=== PATIENT | female | born 1970 | race Caucasian/White ===

== ENCOUNTER 2022-12-02 08:55 | Emergency (ER) | payer MEDICAID, SELFPAY ==
[2022-12-02 08:57] VITALS: BP 149/81; PULSE 90; RESP 16; TEMP 36.1; O2SAT 99; BMI 33.7
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
== END 2022-12-02 09:38 | disposition home or self-care (01) ==
LOC: ED 09:37
PROVIDERS: Emergency Provider Emergency Medicine; Visit Provider Emergency Medicine
DX: M25.512 Pain in left shoulder (principal)
CPT/HCPCS: 99282

== ENCOUNTER 2024-03-06 19:39 | Emergency (ER) | payer MEDICAID, SELFPAY ==
[2024-03-06 19:42] VITALS: BP 184/75; PULSE 89; RESP 18; TEMP 36.6; O2SAT 98; BMI 33.2
--- NOTE | 2024-03-06 19:45 | RAD_ITS ---
EXAM: XR LEFT HAND COMPLETE, 3 OR MORE VIEWS CLINICAL INDICATION: Injury- Thumb TECHNIQUE: Frontal, lateral and oblique views of the left hand. COMPARISON: No relevant prior studies available. FINDINGS: BONES/JOINTS: Sclerotic focus overlying the fourth middle phalanx. No acute fracture. No subluxation. Normal alignment. Preservation of the joint space. SOFT TISSUES: Unremarkable. No soft tissue swelling or gas. No radiopaque foreign body. RAD/Hand Min 3 Views IMPRESSION: No acute findings in the left hand. Electronically Signed: Koko Snyder MD at 20:12 EDT ,
--- OUTSIDE RECORDS SUMMARY | 2024-03-06 23:02 | XMS RPT_ITS | CCD ---
Author Organization [facility] Care Team Providers Care Flexible Machining System Machinist Name Role Phone Priyanka Watkins Primary Care Provider [phone] Ashok MILLER - NIESHA, Efraín Cerda Primary Care Provider Jerry Chirinos MD Primary Care Provider Priyanka Watkins MD Primary Care Provider Taran COOPER, Jerry Ortega Primary Care Provider Ashok ENGINE TESTER - STUCCO APPLICATOREfraín S Primary Care Provider Jerry Chirinos MD Primary Care Provider Ashok ENGINE TESTER - STUCCO APPLICATOREfraín S Primary Care Provider Ashok ENGINE TESTER - STUCCO APPLICATOR, Efraín S Primary Care Provider KIP AGRAWAL Admitting Unavailable KIP AGRAWAL Attending Unavailable ASHOK EFRAÍN Primary Care Unavailable EFRAÍN PULIDO Attending Unavailable GLENDA CHIRINOSRELL Primary Care Unavailable EFRAÍN PULIDO Attending Unavailable TARAN, JERRY Primary Care Unavailable EFRAÍN PULIDO Attending Unavailable ASHOK, EFRAÍN Referring Unavailable ASHOK, EFRAÍN Primary Care Unavailable EFRAÍN PULIDO Attending Unavailable EDVIN PULIDOY Referring Unavailable ASHOK, EFRAÍN Primary Care Unavailable SUDHAKAR INFANTE Attending Unavailable EFRAÍN PULIDO Referring Unavailable TARAN, JERRY Primary Care Unavailable ORIN GAONA Attending Unavailable JERRY CHIRINOS Primary Care Unavailable Allergies Allergy Classification Reported Allergen(s) Allergy Type Date of Onset Reaction(s) Facility (20 sources) Penicillins Propensity to adverse reactions to drug 01-22-2021 [facility] Medications Current Medications Medication Drug Class(es) Dates Sig (Normalized) Sig (Original) ARIPiprazole 2 mg oral tablet (2 sources) Atypical Antipsychotic Start: 05-15-2021 take 1 tablet by mouth once daily in the morning ARIPiprazole (ABILIFY) 2 MG tablet Indications: Current mild episode of major depressive disorder without prior episode (HCC) TAKE 1 TABLET BY MOUTH EVERY MORNING 30 tablet 2 05/15/2021 Active Start: 03-20-2021 take 1 tablet by lashay th once daily in the morning ARIPiprazole (ABILIFY) 2 MG tablet Indications: Current mild episode of major depressive disorder without prior episode (HCC) TAKE ONE TABLET BY MOUTH EVERY DAY IN THE MORNING 30 tablet 1 03/20/2021 Active benzonatate 200 mg oral capsule (1 source) Non-narcotic Antitussive Start: 04-04-2021 End: 04-11-2021 take 1 capsule by mouth three times daily as needed for cough benzonatate (TESSALON) 200 MG capsule Take 1 capsule by mouth 3 times daily as needed for Cough 21 capsule 0 04/04/2021 04/11/2021 Active brompheniramine maleate 0.4 mg/ml / dextromethorphan hydrobromide 2 mg/ml / pseudoephedrine hydrochloride 6 mg/ml oral solution (2 sources) alpha-Adrenergic Agonist, Uncompetitive Z-jbknxy-Z-aspar chakraborty Receptor Antagonist, Sigma-1 Agonist Start: 07-07-2023 End: 07-17-2023 take 5 mL by mouth three times daily as needed brompheniramine-ps eudoephedrine-DM 30-2-10 MG/5ML syrup Indications: Acute cough Take 5 mL by mouth 3 times daily as needed for allergies for up to 10 days. 120 mL 0 07/07/2023 07/17/2023 Active cyclobenzaprine hydrochloride 10 mg oral tablet (1 source) Muscle Relaxant Start: 04-27-2019 End: 05-07-2019 take 1 tablet by mouth three times daily as needed for muscle spasms cyclobenzaprine (FLEXERIL) 10 MG tablet Take 1 tablet by mouth 3 times daily as needed for Muscle spasms 10 tablet 0 04/27/2019 05/07/2019 Active doxycycline hyclate 100 mg oral capsule (2 sources) Tetracycline-cla ss Drug Start: 07-07-2023 End: 07-14-2023 doxycycline (Vibramycin) 100 MG capsule Indications: Acute non-recurrent frontal sinusitis Take 1 capsule (100 mg) by mouth 2 times daily for 7 days. Take with at least 8 ounces (large glass) of water, do not lie down for 30 minutes after 14 capsule 0 07/07/2023 07/14/2023 Active Elastic Bandages & Supports (WRIST SPLINT/COCK-UP/RIGH T M) [facility] (3 sources) Start: 11-02-2017 Elastic Bandages & Supports (WRIST SPLINT/COCK-UP/RIG HT M) [facility] Indications: Carpal tunnel syndrome of right wrist 1 Units by Does not apply route daily 1 each 0 11/02/2017 Active famotidine 20 mg oral tablet (12 sources) Histamine-2 Receptor Antagonist take 1 tablet by mouth every twenty-four hours as needed for gastroesophageal reflux disease famotidine (Pepcid) 20 MG tablet Take 20 mg by mouth Daily as needed for heartburn. 0 Active FLUoxetine 60 mg oral tablet (3 sources) Serotonin Reuptake Inhibitor Start: 05-06-2021 take 1 tablet by mouth once daily FLUoxetine HCl 60 MG TABS Indications: Current moderate episode of major depressive disorder without prior episode (HCC) , Anxiety take 1 tablet by mouth daily 30 tablet 2 05/06/2021 Active Start: 02-04-2021 take 1 tablet by lashay th once daily FLUoxetine HCl 60 MG TABS Indications: Current moderate episode of major depressive disorder without prior episode (HCC) , Anxiety take 1 tablet by mouth daily 30 tablet 2 02/04/2021 Active Start: 11-05-2020 take 1 tablet by lashay th once daily FLUoxetine HCl 60 MG TABS Indications: Current moderate episode of major depressive disorder without prior episode (HCC) , Anxiety take 1 tablet by mouth daily 30 tablet 2 11/05/2020 Active ibuprofen 600 mg oral tablet (4 sources) Nonsteroidal Anti-inflammatory Drug Start: 04-27-2019 take 1 tablet by mouth every six hours as needed for pain ibuprofen (ADVIL;MOTRIN) 600 MG tablet Take 1 tablet by mouth every 6 hours as needed for Pain 20 tablet 0 04/27/2019 Active Start: 07-15-2017 End: 04-27-2019 take 1 tablet by mouth every six hours as needed for pain ibuprofen (ADVIL;MOTRIN) 400 MG tablet Take 1 tablet by mouth every 6 hours as needed for Pain 120 tablet 0 07/15/2017 04/27/2019 Discontinued (DUPLICATE) ipratropium bromide 0.042 mg/actuat metered dose nasal spray (4 sources) Anticholinergic Start: 07-07-2023 End: 07-14-2023 take 2 spray(s) nasal route three times daily ipratropium (Atrovent) 0.06 % nasal spray Indications: Acute non-recurrent frontal sinusitis Administer 2 sprays into each nostril 3 times daily for 7 days. 15 mL 0 07/07/2023 Active naproxen 500 mg oral tablet (1 source) Nonsteroidal Anti-inflammatory Drug Start: 10-23-2020 take 1 tablet by mouth twice daily at mealtime naproxen (NAPROSYN) 500 MG tablet Indications: Trigeminal neuralgia of left side of face Take 1 tablet by mouth 2 times daily (with meals) for 14 days 28 tablet 0 10/23/2020 Active omeprazole 20 mg delayed release oral capsule (20 sources) Proton Pump Inhibitor Start: 03-13-2023 take 1 capsule by mouth once daily omeprazole (PriLOSEC) [address] capsule Indications: Gastroesophageal reflux disease, unspecified whether esophagitis present Take 1 capsule (20 mg) by mouth daily. Do not crush or chew. 30 capsule 2 03/13/2023 Active phentermine hydrochloride 37.5 mg oral tablet (1 source) Sympathomimetic Amine Anorectic Start: 05-20-2021 End: 06-19-2021 take 31-31.9 tablets by mouth once daily before breakfast phentermine (ADIPEX-P) 37.5 MG tablet Indications: Class 1 obesity due to excess calories without serious comorbidity with body mass index (BMI) of 31.0 to 31.9 in adult Take 1 tablet by mouth every morning (before breakfast) for 30 days. 30 tablet 0 05/20/2021 06/19/2021 Active rosuvastatin calcium 10 mg oral tablet (2 sources) HMG-CoA Reductase Inhibitor Start: 05-20-2021 take 1 tablet by mouth once daily rosuvastatin (CRESTOR) 10 MG tablet Indications: Hyperlipidemia, unspecified hyperlipidemia type Take 1 tablet by mouth daily 30 tablet 0 05/20/2021 Active Start: 03-20-2021 take 1 tablet by lashay th once daily rosuvastatin (CRESTOR) 5 MG tablet Indications: Hyperlipidemia, unspecified hyperlipidemia type Take 1 tablet by mouth daily 30 tablet 0 03/20/2021 Active sodium chloride flush 0.9 % injection 3 mL (2 sources) Start: 07-16-2019 sodium chlorid e flush 0.9 % injection 3 mL Start: 01-26-2019 sodium chlorid e flush 0.9 % injection 3 mL Tirzepatide (Mounjaro) 2.5 MG/0.5ML solution pen-injector (16 sources) Start: 04-20-2023 Tirzepatide (M ounjaro) 2.5 MG/0.5ML solution pen-injector Indications: Class 2 obesity due to excess calories without serious comorbidity with body mass index (BMI) of 35.0 to 35.9 in adult Inject 2.5 mg under the skin 1 (one) time per week. 2 mL 0 04/20/2023 Active Completed/Discontinued Medications Medication Drug Class(es) Dates Sig (Normalized) Sig (Original) acetaminophen 500 mg oral tablet (3 sources) Start: 12-24-2020 End: 12-24-2020 acetaminophen (TYLENOL) tablet 1,000 mg Start: 07-16-2019 End: 07-16-2019 acetaminophen (TYLENOL) tabl et 1,000 mg Start: 01-26-2019 End: 01-26-2019 acetaminophen (TYLENOL) tabl et 650 mg [id number] 200 actuat albuterol 0.09 mg/actuat metered dose inhaler (1 source) beta2-Adrenergic Agonist Start: 04-04-2021 End: 04-04-2021 albuterol sulfate HFA 108 (90 Base) MCG/ACT inhaler 6 puff cephalexin 500 mg oral capsule (2 sources) Cephalosporin Antibacterial Start: 06-02-2021 End: 06-09-2021 cephALEXin (KEFLEX) capsule 500 mg 1 ml dexamethasone phosphate 10 mg/ml injection (1 source) Corticosteroid Start: 04-04-2021 End: 04-04-2021 dexamethasone (PF) (DECADRON) injection 10 mg 1 ml diphenhydrAMINE hydrochloride 50 mg/ml cartridge (1 source) Histamine-1 Receptor Antagonist Start: 07-16-2019 End: 07-16-2019 diphenhydrAMINE (BENADRYL) injection 25 mg EPINEPHrine 0.01 mg/ml / lidocaine hydrochloride 10 mg/ml injectable solution (1 source) Antiarrhythmic, alpha-Adrenergic Agonist, beta-Adrenergic Agonist, Catecholamine, Amide Local Anesthetic Start: 06-02-2021 End: 06-02-2021 lidocaine-EPINEPHrine 1 %-1:[id number] injection 20 mL 1 ml ketorolac tromethamine 30 mg/ml cartridge (5 sources) Nonsteroidal Anti-inflammatory Drug, Cyclooxygenase Inhibitor Start: 04-04-2021 End: 04-04-2021 ketorolac (TORADOL) injection 30 mg Start: 07-16-2019 End: 07-16-2019 ketorolac (TORADOL) 30 MG/ML injection Start: 01-26-2019 End: 01-26-2020 take 1 tablet by mouth every six hours as needed for pain ketorolac (TORADOL) 10 MG tablet Take 1 tablet by mouth every 6 hours as needed for Pain 20 tablet 0 01/26/2019 04/27/2019 Discontinued (DUPLICATE) Start: 01-26-2019 ketorolac (TOR ADOL) injection 30 mg 2 ml ondansetron 2 mg/ml injection (1 source) Serotonin-3 Receptor Antagonist Start: 07-16-2019 End: 07-16-2019 ondansetron (ZOFRAN) injection 4 mg 1 ml promethazine hydrochloride 25 mg/ml injection (2 sources) Phenothiazine Start: 07-16-2019 End: 07-16-2019 promethazine (PHENERGAN) injection 12.5 mg Start: 07-16-2019 End: 07-23-2019 take 1 tablet by mouth every six hours as needed for nausea promethazine (PHENERGAN) 25 MG tablet Take 1 tablet by mouth every 6 hours as needed for Nausea 12 tablet 0 07/16/2019 07/23/2019 Active 5 ml sodium chloride 9 mg/ml injection (8 sources) Start: 08-04-2023 End: 08-04-2023 sodium chloride 0.9 % infusi on Start: 08-04-2023 End: 08-04-2023 sodium chloride 0.9% (NS) fl ush 10 mL Start: 04-04-2021 End: 04-04-2021 0.9 % sodium chloride bolus Start: 07-16-2019 End: 07-16-2019 0.9 % sodium chloride bolus Problems Active Problems Problem Classification Problem Date Documented Da te Episodic/Chronic Abdominal pain (14 sources) Generalized abdominal pain; Translations: [Generalized abdominal pain] Onset: 4 03-13-2023 Episodic Acute bronchitis (1 source) Acute bronchitis; Translations: [Acute bronchitis, unspecified organism] Episodic Anxiety disorders (20 sources) Anxiety; Translations: [Anxiety disorder, unspecified] Onset: 0 12-02-2019 Chronic Disorders of lipid metabolism (20 sources) Hyperlipidemia; Translations: [Hyperlipidemia, unspecified] Onset: 1 01-02-2021 Chronic Esophageal disorders (9 sources) Gastroesophageal reflux disease; Translations: [Gastro-esophageal reflux disease without esophagitis] Onset: 4 03-13-2023 Chronic Headache; including migraine (1 source) Headache; Translations: [Acute nonintractable headache, unspecified headache type] Episodic Miscellaneous mental health disorders (1 source) Suicidal behavior; Translations: [Other symptoms and signs involving emotional state] Episodic Mood disorders (20 sources) Moderate major depression, single episode; Translations: [Major depressive disorder, single episode, moderate] Onset: 0 12-02-2019 Chronic Nausea and vomiting (11 sources) Nausea; Translations: [Nausea] Onset: 4 03-13-2023 Episodic Other and unspecified benign neoplasm (4 sources) Adenomyomatosis of gallbladder; Translations: [Benign neoplasm of extrahepatic bile ducts] 04-20-2023 Episodic Other and unspecified benign neoplasm (3 sources) Benign neoplasm of extrahepatic bile ducts; Translations: [Benign neoplasm of extrahepatic bile ducts] Onset: 4 08-04-2023 Episodic Other and unspecified benign neoplasm (1 source) Benign neoplasm of extrahepatic bile ducts; Translations: [Benign neoplasm of extrahepatic bile ducts] Onset: 4 Episodic Other gastrointestinal disorders (10 sources) Abdominal bloating; Translations: [Abdominal distension (gaseous)] 03-13-2023 Episodic Other gastrointestinal disorders (3 sources) Abdominal distension, gaseous; Translations: [Abdominal distension (gaseous)] Onset: 4 08-04-2023 Episodic Other gastrointestinal disorders (1 source) Abdominal distension (gaseous); Translations: [Abdominal distension (gaseous)] Onset: 4 Episodic Other liver diseases (6 sources) Steatosis of liver; Translations: [Fatty (change of) liver, not elsewhere classified] 04-20-2023 Chronic Other liver diseases (2 sources) Fatty (change of) liver, not elsewhere classified; Translations: [Fatty (change of) liver, not elsewhere classified] Onset: 4 Chronic Other lower respiratory disease (9 sources) Cough; Translations: [Acute cough] Onset: 4 07-07-2023 Episodic Other nervous system disorders (20 sources) Carpal tunnel syndrome of right wrist; Translations: [Carpal tunnel syndrome, right upper limb] Onset: 8 12-24-2017 Chronic Other nervous system disorders (2 sources) Carpal tunnel syndrome of right wrist; Translations: [Carpal tunnel syndrome of right wrist] Onset: 8 12-24-2017 Other nutritional; endocrine; and metabolic disorders (3 sources) Obesity; Translations: [Other obesity due to excess calories] Onset: 0 10-19-2020 Chronic Other nutritional; endocrine; and metabolic disorders (20 sources) Obesity caused by energy imbalance; Translations: [Other obesity due to excess calories] Onset: 1 03-13-2023 Chronic Other nutritional; endocrine; and metabolic disorders (2 sources) Other obesity due to excess calories; Translations: [Other obesity due to excess calories] Onset: 3 Chronic Other nutritional; endocrine; and metabolic disorders (2 sources) Body mass index (BMI) 35.0-35.9, adult; Translations: [Body mass index (BMI) 35.0-35.9, adult] Onset: 3 Chronic Other nutritional; endocrine; and metabolic disorders (2 sources) Body mass index (BMI) 34.0-34.9, adult; Translations: [Body mass index (BMI) 34.0-34.9, adult] Onset: 3 Chronic Other nutritional; endocrine; and metabolic disorders (4 sources) Weight gain; Translations: [Abnormal weight gain] 03-13-2023 Episodic Suicide and intentional self-inflicted injury (1 source) Suicidal thoughts; Translations: [Suicidal ideations] Episodic Unclassified (1 source) Acute cough; Translations: [Acute cough] Onset: 4 Viral infection (1 source) COVID-19; Translations: [Pneumonia due to other virus not elsewhere classified] Episodic Past or Other Problems Problem Classification Problem Date Documented Da te Episodic/Chronic Disorders of teeth and jaw (2 sources) Dental abscess; Translations: [Periapical abscess without sinus] Onset: 01-22-2021 Resolved: 03-20-2021 03-20-2021 Episodic Mood disorders (20 sources) Mood disorders Onset: 03-13-2023 03-13-2023 Nonmalignant breast conditions (20 sources) Fat necrosis of breast; Translations: [Fat necrosis of breast] Onset: 10-29-2015 10-29-2015 Episodic Nonspecific chest pain (8 sources) Chest pain; Translations: [Chest wall pain] Onset: 07-14-2017 Resolved: 12-02-2019 07-14-2017 Episodic Other bone disease and musculoskeletal deformities (6 sources) Costal chondritis; Translations: [Chondrocostal junction syndrome [Tietze]] Onset: 07-15-2017 Resolved: 12-02-2019 07-15-2017 Episodic Other non-traumatic joint disorders (20 sources) Pain in left shoulder; Translations: [Pain in joint, shoulder region] Onset: 03-13-2023 03-13-2023 Episodic Other nutritional; endocrine; and metabolic disorders (2 sources) Abnormal weight gain; Translations: [Abnormal weight gain] Onset: 03-13-2023 Episodic Other screening for suspected conditions (not mental disorders or infectious disease) (6 sources) Patient encounter status; Translations: [Encounter for screening mammogram for malignant neoplasm of breast] Onset: 03-13-2023 03-13-2023 Episodic Other upper respiratory infections (20 sources) Viral upper respiratory tract infection; Translations: [Acute upper respiratory infection, unspecified] Onset: 05-27-2022 Resolved: 07-25-2022 07-25-2022 Episodic Otitis media and related conditions (20 sources) Acute suppurative otitis media without spontaneous rupture of ear drum; Translations: [Acute suppurative otitis media without spontaneous rupture of ear drum, left ear] Onset: 05-27-2022 05-27-2022 Episodic Residual codes; unclassified (20 sources) Tobacco user; Translations: [Tobacco use] Onset: 12-28-2019 12-28-2019 Episodic Skin and subcutaneous tissue infections (20 sources) Abscess of axilla; Translations: [Cutaneous abscess of limb, unspecified] Onset: 03-27-2022 Episodic Spondylosis; intervertebral disc disorders; other back problems (1 source) Acute low back pain Episodic Unclassified (1 source) Acute cough; Translations: [Acute cough] Onset: 07-07-2023 Results Test Name Value Interpretation Reference Range Facility 36on 10-13-2023 36 We have been unable to reach your patient to schedule their testing. Test Name: ct abd pel w contrast 1st Attempt: 10/05/23 sent mySchoolNotebook message 2nd Attempt: 10/13/2023 left voicemail Normal [facility] DBT Breast - bilateral scree shira 10-02-2023 No mammographic evidence of malignancy. ASSESSMENT: Category 2 Benign RECOMMENDATION: Routine screening mammogram in 1 year. Bilateral CANCER RISK ASSESSMENT: This risk assessment is based on patient provided information collected in a risk survey taken at the time of this examination. LIFETIME BREAST CANCER RISK: Rylan: 11.86% - If greater than or equal to 20%, consider annual mammogram and annual screening Breast MRI or follow up in high risk clinic. Is the patient at elevated risk based on the HBOC criteria? No (Hereditary Breast and Ovarian Cancer) - If Yes, consider genetic counseling and testing with high risk follow up. Is the patient at elevated risk based on the Osborne Syndrome criteria? No - If Yes, consider genetic counseling and testing with high risk follow up. Report Dictated on Electronically Signed By: Amena Trevino MD Electronically Signed Date/Time: 10/02/2023 12:16 PM [facility] Patient Name: SAVI CAN : 1970 Exam Date/Time: 10/02/2023 11:26 Procedure: BI MAMMOGRAM SCREENING TOMOSYNTHESIS BILATERAL Ordering Provider: PULIDO HOLLY Reason For Exam: routine screening Image views: 2D Bilateral CC and MLO views were acquired. 3D Bilateral CC and MLO views were acquired. Images were reviewed with CAD. Markings on images: BB's = Nipples; skin lesions Open comanche = Palpable Line = Scar COMPARISON: 07/20/2018 TISSUE DENSITY: BIRADS B - There are scattered fibroglandular densities. FINDINGS: No suspicious masses, architectural distortions or suspiciously clustered microcalcifications are identified. There is no evidence of skin thickening or nipple retraction. There is a biopsy clip in the left breast. There are no significant changes when compared with prior studies. [facility] Amena Trevino MD - 10/02/2023 [facility] 1970 [id number] Exam Date/Time: 10/02/2023 11:26 Procedure: BI MAMMOGRAM SCREENING TOMOSYNTHESIS BILATERAL Ordering Provider: PULIDO HOLLY Reason For Exam: routine screening Image views: 2D Bilateral CC and MLO views were acquired. 3D Bilateral CC and MLO views were acquired. Images were reviewed with CAD. Markings on images: BB's = Nipples; skin lesions Open comanche = Palpable Line = Scar COMPARISON: 07/20/2018 TISSUE DENSITY: BIRADS B - There are scattered fibroglandular densities. FINDINGS: No suspicious masses, architectural distortions or suspiciously clustered microcalcifications are identified. There is no evidence of skin thickening or nipple retraction. There is a biopsy clip in the left breast. There are no significant changes when compared with prior studies. IMPRESSION: No mammographic evidence of malignancy. ASSESSMENT: Category 2 Benign RECOMMENDATION: Routine screening mammogram in 1 year. Bilateral CANCER RISK ASSESSMENT: This risk assessment is based on patient provided information collected in a risk survey taken at the time of this examination. LIFETIME BREAST CANCER RISK: Tyrer-Cuzick: 11.86% - If greater than or equal to 20%, consider annual mammogram and annual screening Breast MRI or follow up in high risk clinic. Is the patient at elevated risk based on the HBOC criteria? No (Hereditary Breast and Ovarian Cancer) - If Yes, consider genetic counseling and testing with high risk follow up. Is the patient at elevated risk based on the Osborne Syndrome criteria? No - If Yes, consider genetic counseling and testing with high risk follow up. Report Dictated on Electronically Signed By: Amena Trevino MD Electronically Signed Date/Time: 10/02/2023 12:16 PM EDT [facility] Radiology Study observation (narrative) [facility] DBT Breast - bilateral scree ningOrdered By: Amena Trevino on 10-02-2023 [facility] 36on 10-01-2023 36 Called patient, no answer. Left voicemail to call us back if would like to be scheduled for follow up to go over results. Patient established with Sudhakar. [facility] 36on 08-17-2023 36 Please assist with scheduling. VV appropriate.Thanks. [facility] 36 Name of caller: Savi Contact phone number: [phone] Relationship to Patient: patient Provider: Dr. Agrawal Practice: [facility] Chief Complaint/Reason for Call: Pt states she had a EGD on 08/03 and would like to schedule a follow up appointment to discuss the results. Pt states she would like to be seen sooner than later. Please advise. Best time of day caller can be reached: any Patient advised that office/PCP has 24-48 business hours to return their call: Yes [facility] Nursing Noteon 08-04-[address] Argawal at bedside to give pt update. Sister at bedside. Questions answered. [facility] Nursing Note Ambulates to restroo after discharge instructions discussed. She is provided with scrub pants and items for christel care-her pants are wet. Gait is steady. Denies complaints. States she is ready to go home. [facility] Nursing Note Received pt from gi lab sleeping on room air. Belongings retrieved from locker. No visitor in lobby-Dr Agrawal is made aware. History and allergies reviewed. [facility] 36on 07-07-2023 36 S: Patient spoke wit h [facility] nurse regarding cough B: Onset of symptoms/concern 1-2 weeks A: Patient complaining of severe cough with intermittent vomiting, sore throat, moderate left earache, nasal discharge, chest congestion chest pain only with cough. Denies difficulty breathing, fever, wheezing. No COVID test. R: OV scheduled for today with Gareth Gaona. Patient understands care advice. No further needs at this time. Patient instructed to call back with new or worsening symptoms. Reason for Disposition SEVERE coughing spells (e.g., whooping sound after coughing, vomiting after coughing) Protocols used: [id number] [facility] Office Visiton 07-07-2023 Follow-up visit [id number] Savi Vasquez 1970 F Date Provider Department Center 07/07/2023 [id number] GAONA [facility] [facility] Family History Problem Relation Age of Onset Heart disease Father Other Father Comments: Blood Clots Heart disease Brother Lung cancer Brother Breast cancer Father's Sister Comments: Early 40s Lung cancer Maternal Grandfather Colon cancer Maternal Grandfather Family Status - Relation Status Age at Mother Alive Father Brother Father's Sister Maternal Grandfather Level of Service:85223 [place] OFFICE/OUTPATIENT ESTABLISHED LOW [facility] 20 MIN Reason for Visit and Comments: Cough [28] Nasal Congestion [144225] Sore Throat [82] Earache [524686] - left [facility] Progress Noteon 07-07-2023 Progress Note Will treat with antibiotics for bacterial sinusitis due to severity of symptoms and length of illness >7 days, not improving. [facility] Progress Note Patient was identifi ed by name and Date of . [facility] Progress Note 07/07/2023 Savi Vasquez (: 1970) is a 53 y.o. female , Established patient, here for evaluation of the following chief complaint(s): Cough, Nasal Congestion, Sore Throat, and Earache (left) ASSESSMENT/PLAN: 1. Acute non-recurrent frontal sinusitis Assessment & Plan: Will treat with antibiotics for bacterial sinusitis due to severity of symptoms and length of illness >7 days, not improving. Orders: - doxycycline (Vibramycin) 100 MG capsule; Take 1 capsule (100 mg) by mouth 2 times daily for 7 days. Take with at least 8 ounces (large glass) of water, do not lie down for 30 minutes after, Starting Thu07/07/2023, Until Thu07/14/2023, Normal - ipratropium (Atrovent) 0.06 % nasal spray; Administer 2 sprays into each nostril 3 times daily for 7 days., Starting Thu07/07/2023, Until Thu07/14/2023, Normal 2. Acute cough - brompheniramine-pseudoe phedrine-DM 30-2-10 MG/5ML syrup; Take 5 mL by mouth 3 times daily as needed for allergies for up to 10 days., Starting Thu07/07/2023, Until Thu07/17/2023 at 2359, Normal Reviewed and provided written patient education/instructions regarding diagnosis and management. Reviewed symptom management with non-pharmacological interventions and appropriate use of otc medications for relief of symptoms. Follow up for worsening or no improvement in symptoms. Follow up if symptoms worsen or fail to improve. SUBJECTIVE/OBJECTIVE: [facility] - Savi Vasquez (: 1970) is a 53 y.o. female , Established patient, here for the evaluation of the following chief complaint(s): Cough, Nasal Congestion, Sore Throat, and Earache (left) X 2 weeks worsening, lots of drainage. Sinus pressure, headache. No fever or chills, low grade today. Feels hotter at bedtime. Left ear bothering her. No drainage. Feels full. Robitussin, sudafed and dayquil. Mild nausea and vomiting. Did initially have n/v/d. That has resolved. Mild nausea. Appetite decreased. Prior to Admission medications Medication Sig Start Date End Date Taking? Authorizing Provider famotidine (Pepcid) 20 MG tablet Take 20 mg by mouth Daily as needed for heartburn. Historical Provider, omeprazole (PriLOSEC) [address] capsule Take 1 capsule (20 mg) by mouth daily. Do not crush or chew. Patient not taking: Reported on 06/11/2023 03/13/23 PAUL Ruiz CNP Tirzepatide (Mounjaro) 2.5 MG/0.5ML solution pen-injector Inject 2.5 mg under the skin 1 (one) time per week. Patient not taking: Reported on 06/11/2023 04/20/23 PAUL Ruiz CNP Review of Systems Constitutional: Negative for chills, fatigue and fever. HENT: Positive for congestion, postnasal drip, sinus pressure and sinus pain. Negative for sore throat and trouble swallowing. Respiratory: Positive for cough. Negative for shortness of breath. Cardiovascular: Negative for chest pain. Gastrointestinal: Negative. Neurological: Positive for headaches. Vitals: 07/07/23 1256 BP: 137/83 Pulse: 87 Resp: 20 Temp: 37.8 ?C (100 ?F) TempSrc: Infrared SpO2: 97% Weight: 215 lb (97.5 kg) Physical Exam Constitutional: General: She is not in acute distress. Appearance: Normal appearance. She is ill-appearing (mild). HENT: Head: Normocephalic and atraumatic. Right Ear: Tympanic membrane normal. Left Ear: Tympanic membrane normal. Nose: Congestion and rhinorrhea present. Right Turbinates: Swollen. Left Turbinates: Swollen. Mouth/Throat: Mouth: Mucous membranes are moist. Pharynx: Oropharynx is clear. No oropharyngeal exudate or posterior oropharyngeal erythema. Eyes: Conjunctiva/sclera: Conjunctivae normal. Cardiovascular: Rate and Rhythm: Normal rate and regular rhythm. Pulses: Normal pulses. Heart sounds: Normal heart sounds. Pulmonary: Effort: Pulmonary effort is normal. Breath sounds: Normal breath sounds. Comments: Speaking full sentences without difficulty Lymphadenopathy: Cervical: No cervical adenopathy. Skin: General: Skin is warm and dry. Neurological: Mental Status: She is alert and oriented to person, place, and time. Psychiatric: Mood and Affect: Mood normal. Behavior: Behavior normal. An electronic signature was used to authenticate this note. PAUL Beltre CNP 07/07/2023 1:21 PM [place] [address] 06-24-2023 36 Re-faxed office note s and US report. [place] [address] 06-23-2023 36 I faxed the office notes over to them! [place] [address] We denied your docto r?s request for a Pelvis CT (Computed Tomography - pictures of inside your body between your hips). It must be medically needed in order to be approved. The request did not include any clinical notes from your doctor. We asked for notes about the problem; the most recent office visit notes; any test results or image studies that show a need for more studies; and any treatments for the problem. We did not get an answer. Without these notes, we are not able to approve this request. We used [employer] Clinical Guideline [address] to decide this. Please talk to your doctor about this request. [place] 1960706-12-2023 36 Current Status: Pend ing Validity Period: [Not Applicable] Tracking Number: [id number] Patient Name: SAVI VASQUEZ Date of : 1970 Gender: Female Physician Name: Sudhakar Infante Provider ID: [id number] [facility] Office Visiton 06-11-2023 Follow-up visit [id number] Savi Vasquez 1970 F Date Provider Department Center 06/11/2023 [id number] INFANTE [facility] [place] None Family History Problem Relation Age of Onset Heart disease Father Other Father Comments: Blood Clots Heart disease Brother Lung cancer Brother Breast cancer Father's Sister Comments: Early 40s Lung cancer Maternal Grandfather Colon cancer Maternal Grandfather Family Status - Relation Status Age at Mother Alive Father Brother Father's Sister Maternal Grandfather Level of Service:09578 [place] OFFICE/OUTPATIENT NEW MODERATE MDM 45 MINUTES Reason for Visit and Comments: New Patient [542] Abdominal Pain [695239] GERD [282482] Nausea [70] Normal [facility] PATINSon 06-11-2023 PATINS --Please call office with any questions or concerns! [phone] --Schedule EGD (upper endoscopy) for further evaluation of the symptoms.. Patient scheduled with Dr. Agrawal in [place] on 08/04/23 at 11:30am. Case # [id number] --Schedule radiology test (CT Abdomen/Pelvis) for further evaluation of the symptoms. --recommend mediterranean diet for fatty liver --referral placed to general surgery regarding adenomyomatosis of gallbladder seen on ultrasound --Please see handout provided regarding additional recommendations for the symptoms including when to seek emergency care or further treatment. --Follow-up with PCP, and in GI clinic in about 4-6 weeks following the above evaluation and recommendations. Normal [facility] Progress Noteon 06-11-2023 Progress Note [facility] [address] [facility] [address] Dept: [phone] Dept Loc: [phone] Visit type: New Reason for Visit: New Patient, Abdominal Pain, GERD, and Nausea Assessment and Plan Problem List Items Addressed This Visit None Visit Diagnoses Generalized abdominal pain Relevant Orders CT abdomen pelvis w contrast Abdominal bloating Relevant Orders CT abdomen pelvis w contrast Nausea Relevant Orders CT abdomen pelvis w contrast Gastroesophageal reflux disease, unspecified whether esophagitis present Relevant Orders CT abdomen pelvis w contrast Fatty liver Adenomyomatosis of gallbladder Relevant Orders [facility] General Surgery - Magali Christopher MD GERD/Abdominal bloating/Abdominal pain/Nausea --?GI 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 --schedule EGD for further evaluation --prior CT denied by insurance; will attempt to re-order at this time since US was completed in interim --continue famotidine as needed (patient prefers to take as needed) --diet EDU printed Fatty liver --seen on abdominal US 04/16/2023 --BMI 35 --02/2023-normal LFTs --patient avoids EtOH-continue --reviewed diet/lifestyle modifications recommended for fatty liver, EDU printed --discussed with patient potential progression of fatty liver to cirrhosis Adenomyomatosis of GB --referral placed to surgery Advised patient to call office with new or worsening symptoms, questions, or concerns. Patient verbalized understanding and agreement of plan. Follow up in about 6 weeks (around 07/23/2023). Subjective HPI Patient is referred by Efraín Pulido APRN-NIESHA, re: generalized abdominal pain, abdominal bloating, nausesa, GERD, fatty liver, and adenomyomatosis of gallbladder. Patient reports unintentional weight-gain of 40# over the past 5 months. States she is eating one meal per day-trying to focus on high protein-but continuing to rapidly gain weight. Weight gain is very disconcerting to patient. February 2023 normal TSH, T3, T4. Current weight at today's visit 218#, weight at ov with PCP 06/09/2022 197#. [place] on med list-patient states she never took this, med was denied by insurance. She completed abdominal US 04/16/2023 which showed adenomyomatosis of GB wall and fatty liver. LFTS normal . She c/o increased gassiness and regurgitation. She is using famotidine 20 mg prn, which helps some. Prefers not to take medication. Has significant abdominal bloating following meals. States this does not matter how much she eats or what she eats-bloating is severe. Has to lie down for relief. Bowels are moving daily. Having intermittent days of abdominal cramping that precedes bowel movements. Will have solid stool followed by several episodes of loose stool on these days. Denies hematochezia and melena. No prior EGD. Last colonoscopy 2019. Smokes 1 pack per week-trying to cut back. No cardiac hx. Denies anticoagulants or supplemental oxygen use. Review of Systems Constitutional: Positive for unexpected weight change (gain). Negative for appetite change. HENT: Negative for trouble swallowing and voice change. Respiratory: Negative for shortness of breath. Cardiovascular: Negative for chest pain. Gastrointestinal: Positive for abdominal distention, abdominal pain and nausea. Negative for anal bleeding, blood in stool, constipation, diarrhea, rectal pain and vomiting. +regurgitation Genitourinary: Negative for difficulty urinating. Musculoskeletal: Negative for neck pain. Skin: Negative for color change. Patient notes itching to breasts, underarms Neurological: Negative for weakness. Allergies Allergen Reactions Penicillins Outpatient Medications Prior to Visit Medication Sig Dispense Refill famotidine (Pepcid) 20 MG tablet Take 20 mg by mouth Daily as needed for heartburn. omeprazole (PriLOSEC) [address] capsule Take 1 capsule (20 mg) by mouth daily. Do not crush or chew. (Patient not taking: Reported on 06/11/2023) 30 capsule 2 Tirzepatide (Mounjaro) 2.5 MG/0.5ML solution pen-injector Inject 2.5 mg under the skin 1 (one) time per week. (Patient not taking: Reported on 06/11/2023) 2 mL 0 No facility-administered medications prior to visit. Patient Active Problem List Diagnosis Date Noted Pain of left shoulder region 03/13/2023 Priority: Medium Non-recurrent acute suppurative otitis media of left ear without spontaneous rupture of tympanic membrane 05/27/2022 Priority: Medium Impetigo 03/27/2022 Priority: Medium Hyperlipidemia 01/02/2021 Class 2 obesity due to excess calories without serious comorbidity with body mass index (BMI) of 35.0 to 35.9 in adult 10/19/2020 History of hysterectomy 12/28/2019 Tobacco abuse 12/28/2019 Anxiety 12/02/2019 Major depressive disorder with single episode, in remission (HCC) 12/02/2019 Carpal tunnel sy (more content not included)... [place] [address] 04-27-2023 36 Name of Caller: Lauren Contact Reason for Appointment: Pt referred for generalized abdominal pain & would like to schedule new pt appt. Please advise. Office Name: [facility] Medication Refills need, if any: n/a Medication Name: n/a [place] [address]on 04-22-2023 36 Notified pt. [place] [address] A PA was submitted t o her insurance and the medication was denied. I am not familiar with the new medication and as of now this is not something I am prescribing. [address] 04-21-2023 36 Message released to patient as written. Patient's further questions if applicable: pt is wanting to know if PA will be resummited for Monjaro and to see about a medication called Zepbound that is coming out 04/24/2023 please advise Were all questions from office addressed or relayed to the patient from encounter: no [place] [address] PA was denied, insurance will not cover mounjaro, Left a message to return call to notify Savi. [address] 04-20-2023 36 PA has already been submitted. [place] [address] Name of caller: Savi Contact phone number: [phone] Relationship to Patient: pt Provider: Dr Chirinos Practice: [facility] Chief Complaint/Reason for Call: Caller is noting that pharmacy did call and said they needed a PA for Monjaro Please advise Best time of day caller can be reached: any Patient advised that office/PCP has 24-48 business hours to return their call: No [place] [address] Efraín Pulido, PAUL - NIESHA 1 hour ago (1:01 PM) [facility] Rx sent for Mounjaro. Will see if this is approved by her insurance or not. If she does start taking this will need a follow up appointment in 4 weeks from start date. Can cancel appointment on 05/01/23. Left a message to return call. Cancelled appt on 05/01/23, schedule appt in 4 weeks please. Normal [facility] 36 Rx sent for Mounjaro . Will see if this is approved by her insurance or not. If she does start taking this will need a follow up appointment in 4 weeks from start date. Can cancel appointment on 05/01/23. Normal [facility] 36 Spoke to gregory Hou he still wants to try mounjaro. Also asks if the appointment on the can be cancelled? Normal [facility] 36 ----- Message from PAUL Ruiz CNP sent at 04/20/2023 7:23 AM EST ----- Abdominal ultrasound negative for acute findings. There are findings consistent with some thickening of the gallbladder wall but negative for gallstones. Findings of fatty liver are also present. Would recommend following up with GI for further evaluation. Normal [facility] US ABDOMEN COMPLETEon 2022 US ABDOMEN COMPLETE Patient Name: SAVI CAN : 1970 Exam Date/Time: 04/16/2023 14:20 Procedure: US ABDOMEN COMPLETE Ordering Provider: PULIDO HOLLY Reason For Exam: abdominal pain and bloating with nausea CLINICAL INFORMATION: Abdominal pain Sonogram of the abdomen is performed. The liver is hyperechoic in echotexture. No hyper or hypo echoic masses are seen. There is no intrahepatic biliary ductal dilatation. The gallbladder is normally distended with changes of adenomyomatosis gallbladder wall. There are no gallstones, internal echoes, or pericholecystic fluid collections. The common bile duct diameter of 3.9 mm is within normal limits. No obvious pancreatic mass or peripancreatic fluid collection is identified (the pancreas is largely obscured by bowel gas). Cursory examination of the kidneys is performed. The right renal length is 11.8 cm. The left renal length is 11.8 cm. There is no hydronephrosis. There is no ascites. The spleen is unremarkable The visualized portions of the aorta and inferior vena cava are within normal limits. IMPRESSION: 1. Unremarkable ultrasound of the abdomen except for changes of adenomyomatosis gallbladder wall and fatty infiltration liver. Report Dictated on Electronically Signed By: Lee Hsieh MD Electronically Signed Date/Time: 04/18/2023 7:43 PM EST [facility] Office Visiton 04-13-2023 Follow-up visit [id number] Savi Vasquez 1970 F Date Provider Department Center 04/13/2023 [id number] PULIDO [facility] Family History Problem Relation Age of Onset Heart disease Father Other Father Comments: Blood Clots Heart disease Brother Lung cancer Brother Breast cancer Father's Sister Comments: Early 40s Lung cancer Maternal Grandfather Family Status - Relation Status Age at Mother Alive Father Brother Father's Sister Maternal Grandfather Level of Service:69610 [place] OFFICE/OUTPATIENT ESTABLISHED [facility] 10-19 MIN Reason for Visit and Comments: Weight Gain [180] - About 20lbs in the last few months Asking to start Mounjaro [facility] Progress Noteon 04-13-2023 Progress Note Patient verified by last name and date of . Waist 50 [facility] Progress Note 04/13/2023 Savi Vasquez (: 1970) is a 53 y.o. female , Established patient, here for evaluation of the following chief complaint(s): Weight Gain (About 20lbs in the last few months //Asking to start Mounjaro) ASSESSMENT/PLAN: 1. Generalized abdominal pain - Will call and schedule her abdominal ultrasound for further evaluation. 2. Abdominal bloating - Will call and schedule her abdominal ultrasound for further evaluation. 3. Weight gain - Recommend workup with abdominal ultrasound prior to starting medication for weight loss. If abdominal ultrasound is without abnormal findings or findings that would contraindicate Mounjaro, will send in prescription and see if this is covered by her insurance. - Encouraged continuation of a healthy diet. Encouraged regular exercise. 4. Class 2 obesity due to excess calories without serious comorbidity with body mass index (BMI) of 35.0 to 35.9 in adult - Recommend workup with abdominal ultrasound prior to starting medication for weight loss. If abdominal ultrasound is without abnormal findings or findings that would contraindicate Mounjaro, will send in prescription and see if this is covered by her insurance. - Encouraged continuation of a healthy diet. Encouraged regular exercise. Follow up for follow up after ultrasound. SUBJECTIVE/OBJECTIVE: HPI Jaycob Hou presents today to discuss concerns regarding her weight. States she has gained about 20 pounds over the past several months and is interested in starting a medication for weight loss. States she has been eating a healthy diet low in carbohydrates and sugar, but despite making healthy changes she continues to gain weight. Walks some, but denies regular exercise. Has ongoing issues with generalized abdominal pain and abdominal bloating. Had a CT ordered for her abdomen and this was denied by her insurance. Had an order placed for an abdominal ultrasound instead and still needs to get this scheduled. Had blood work drawn on 03/13/23 that showed normal CBC, CMP, TSH, T3, T4, and lipid panel. Review of Systems Constitutional: Negative for chills and fever. Respiratory: Negative for chest tightness and shortness of breath. Cardiovascular: Negative for chest pain and leg swelling. Gastrointestinal: Positive for abdominal distention and abdominal pain (generalized). Negative for blood in stool, constipation, diarrhea, nausea and vomiting. Vitals: 04/13/23 1107 04/13/23 1123 BP: (!) 164/93 136/80 Pulse: 101 SpO2: 97% Weight: 217 lb 6.4 oz (98.6 kg) Height: 5' 6 (1.676 m) Body mass index is 35.09 kg/m?. Physical Exam Constitutional: General: She is not in acute distress. Appearance: She is obese. She is not ill-appearing or diaphoretic. Cardiovascular: Rate and Rhythm: Normal rate and regular rhythm. Pulses: Normal pulses. Heart sounds: Normal heart sounds. No murmur heard. No friction rub. Pulmonary: Effort: Pulmonary effort is normal. Breath sounds: Normal breath sounds. No wheezing, rhonchi or rales. Abdominal: General: Abdomen is protuberant. Bowel sounds are normal. Palpations: Abdomen is soft. There is no hepatomegaly, splenomegaly or mass. Tenderness: There is abdominal tenderness (generalized). There is no guarding or rebound. Comments: Protuberant abdomen impairing examination. Musculoskeletal: Right lower leg: No edema. Left lower leg: No edema. Skin: General: Skin is warm and dry. Coloration: Skin is not pale. Findings: No erythema or rash. Neurological: Mental Status: She is alert and oriented to person, place, and time. Psychiatric: Mood and Affect: Mood normal. Behavior: Behavior normal. Thought Content: Thought content normal. Judgment: Judgment normal. An electronic signature was used to authenticate this note. PAUL Ruiz CNP 04/13/2023 11:28 AM [facility] 36on 03-30-2023 36 Notified. [facility] 36 Order placed. Thank you. Can call central scheduling to schedule. [phone]. [facility] 36 Pt agreeable to US. [facility] 36on 03-25-2023 36 Called patient, VM B ox full unable to LVM, sent mySchoolNotebook message. [facility] [address] Insurance [address] coverage for CT of abdomen. Recommending an abdominal ultrasound instead. Will place order if agreeable. [facility] 36on 03-24-2023 36 Pt's ins is asking f or the following to proceed with CT-Abd/Pelvis: Preliminary Clinical Rationale A preliminary review has been performed that is NOT a final determination. Requests for further information and a peer to peer discussion are being sent to the ordering physician. However, if no further information is received within the regulatory time frame, this determination will become final. Reason for Denial: Your doctor?s request for a(n) Abdomen and Pelvis CT (Computed Tomography - pictures of inside your belly area) cannot be approved. We made this decision based on [facility] [employer]er Guideline A-0013 for Abdominal/Pelvic CT Scan. Information Relied Upon: Based on what was given, you have belly pain, your doctor?s request cannot be approved. A person might need a(n) Abdomen and Pelvis CT if these notes have/has been given: results of other tests that were done first (such as x-rays with or without dye (barium) or sound wave (ultrasound)). Results of those tests should show why this test is still needed. The information we got did not include these notes. [facility] Office Visiton 03-13-2023 Follow-up visit [id number] Savi Vasquez 1970 F Date Provider Department Center 03/13/2023 [id number] PULIDO [facility] Family History Problem Relation Age of Onset Heart disease Father Other Father Comments: Blood Clots Breast cancer Father's Sister Comments: Early 40s Heart disease Brother Lung cancer Maternal Grandfather Lung cancer Brother Family Status - Relation Status Age at Father Father's Sister Brother Maternal Grandfather Level of Service:44394 [place] OFFICE/OUTPATIENT ESTABLISHED MOD MDM 30-39 MIN Reason for Visit and Comments: Discuss Weight [Other] Health Maintenance [872] - Hep B-declined HIV/Hep C-declined Covid-declined MMR-declined Pneumo-declined [id number] Mammo-- pended Zoster-declined PHQ-completed Influenza-declined Normal [facility] Progress Noteon 03-13-2023 Progress Note Patient was identifi ed by name and Date of . Health Main: Hep B-declined HIV/Hep C-declined Covid-declined MMR-declined Pneumo-declined [id number] Mammo-pended Zoster-declined PHQ-completed Influenza-declined Normal [facility] Progress Note 03/13/2023 Savi Vasquez (: 1970) is a 52 y.o. female , Established patient, here for evaluation of the following chief complaint(s): Discuss Weight and Health Maintenance (Hep B-declined/HIV/Hep C-declined/Covid-declin ed/MMR-declined/Pneumo- declined/[id number]/M ammo-pended /Zoster-declined/PHQ-co mpleted/Influenza-decli viridiana) ASSESSMENT/PLAN: 1. Generalized abdominal pain - CBC auto differential - Comprehensive metabolic panel - CT abdomen pelvis wo IV contrast - Will start on daily Omeprazole and obtain blood work and imaging for further evaluation. - Discussed signs and symptoms warranting immediate attention- verbalized understanding. 2. Abdominal bloating - CBC auto differential - Comprehensive metabolic panel - CT abdomen pelvis wo IV contrast - Will start on daily Omeprazole and obtain blood work and imaging for further evaluation. - Discussed signs and symptoms warranting immediate attention- verbalized understanding. 3. Nausea - CBC auto differential - Comprehensive metabolic panel - T3, free - T4, free - TSH - CT abdomen pelvis wo IV contrast - Will start on daily Omeprazole and obtain blood work and imaging for further evaluation. - Discussed signs and symptoms warranting immediate attention- verbalized understanding. 4. Gastroesophageal reflux disease, unspecified whether esophagitis present - CBC auto differential - Comprehensive metabolic panel - CT abdomen pelvis wo IV contrast - omeprazole (PriLOSEC) [address] capsule; Take 1 capsule (20 mg) by mouth daily. Do not crush or chew., Starting 03/13/2023, Normal - Will start on daily Omeprazole and obtain blood work and imaging for further evaluation. - Discussed signs and symptoms warranting immediate attention- verbalized understanding. 5. Weight gain - CBC auto differential - Comprehensive metabolic panel - T3, free - T4, free - TSH - CT abdomen pelvis wo IV contrast - Will start on daily Omeprazole and obtain blood work and imaging for further evaluation. - Discussed signs and symptoms warranting immediate attention- verbalized understanding. 6. Class 1 obesity due to excess calories without serious comorbidity with body mass index (BMI) of 34.0 to 34.9 in adult - CBC auto differential - Comprehensive metabolic panel - T3, free - T4, free - TSH - Encouraged healthy diet and regular exercise. 7. Hyperlipidemia, unspecified hyperlipidemia type - CBC auto differential - Comprehensive metabolic panel - Lipid panel - Will notify of blood work results and provide recommendations accordingly. 8. Screening mammogram for breast cancer - Bilateral screening mammogram 9. Screening for diabetes mellitus - Comprehensive metabolic panel - Will notify of blood work results. Follow up for annual physical and fasting blood work. SUBJECTIVE/OBJECTIVE: ZOHREH Hou presents today to discuss concerns regarding her weight. States she has been watching her weight for the past 10 weeks and has been striving for a healthy diet and continues to gain weight. Denies regular exercise. Does drink regular soda. Is also feeling more bloated and will notice stomach pains. Has also been experiencing daily reflux. Feels reflux is poorly controlled no matter what she eats.Is having regular bowel movements and denies signs of blood in the stool. Is also requesting to have fasting blood work. Has not been taking anything for her hyperlipidemia. Health Maintenance: Declines a flu vaccination. Review of Systems Constitutional: Negative for chills and fever. Respiratory: Negative for cough, chest tightness and shortness of breath. Cardiovascular: Negative for chest pain. Gastrointestinal: Negative for abdominal distention and abdominal pain. Skin: Negative for color change, pallor, rash and wound. Neurological: Negative for dizziness and light-headedness. Vitals: 03/13/23 0726 BP: 132/81 Pulse: 94 Resp: 20 Temp: 36.3 ?C (97.3 ?F) TempSrc: Infrared SpO2: 98% Weight: 213 lb (96.6 kg) Body mass index is 34.38 kg/m?. Physical Exam Constitutional: General: She is not in acute distress. Appearance: She is obese. She is not ill-appearing or diaphoretic. Neck: Thyroid: No thyroid mass or thyromegaly. Vascular: No carotid bruit. Cardiovascular: Rate and Rhythm: Normal rate and regular rhythm. Heart sounds: Normal heart sounds. No murmur heard. No friction rub. Pulmonary: Effort: Pulmonary effort is normal. Breath sounds: Normal breath sounds. No wheezing, rhonchi or rales. Chest: Comments: Declines a breast exam. Abdominal: General: Abdomen is protuberant. Bowel sounds are normal. Palpations: Abdomen is soft. There is no hepatomegaly, splenomegaly or mass. Tenderness: There is generalized abdominal tenderness. There is no guarding or rebound. Negative signs include Montalvo's sign. Hernia: No hernia is present. Musculoskeletal: (more content not included)... Normal [facility] ED Provider Noteon 2 ED Provider Note [facility] ED EMERGENCY DEPARTMENT ENCOUNTER Pt Name: Savi Vasquez Birthdate 1970 Date of evaluation: 06/02/2021 Provider: Orville Trotter, DO CHIEF COMPLAINT Chief Complaint Patient presents with ? Abscess right axillary HISTORY OF PRESENT ILLNESS (Location/Symptom, Timing/Onset, Context/Setting, Quality, Duration, Modifying Factors, Severity) Note limiting factors. I wore a mask for the entirety of this encounter. Savi Vasquez is a 51 y.o. female who presents to the emergency department with right armpit pain. States she has had what she thinks is an abscess to this area over the past week. Has been using Neosporin and warm compresses. States that it has opened up and is now spontaneously draining small amount of purulent fluid. States it is moderately tender to palpation. States she gets some nausea when she does the warm compresses. Denies any fevers, chills. Has never had an abscess in this area before. Nursing Notes were reviewed. REVIEW OF SYSTEMS (2+ for level 4; 10+ for level 5) 14 systems reviewed and otherwise acutely negative except as in the [place]. PAST MEDICAL HISTORY Past Medical History: Diagnosis Date ? Abscessed tooth 01/22/2021 ? Anxiety 12/02/2019 ? Carpal tunnel syndrome of right wrist 12/24/2017 ? Class 1 obesity due to excess calories without serious comorbidity with body mass index (BMI) of 32.0 to 32.9 in adult 01/25/2020 ? Current moderate episode of major depressive disorder without prior episode (HCC) 12/02/2019 ? Headache ? Hyperlipidemia 01/02/2021 ? Smoker ? UTI (urinary tract infection) H/O SURGICAL HISTORY Past Surgical History: Procedure Laterality Date ? HYSTERECTOMY, VAGINAL 2007 bilateral ovaries remaining ? TUBAL LIGATION 1998 CURRENT MEDICATIONS Previous Medications ARIPIPRAZOLE (ABILIFY) 2 MG TABLET TAKE 1 TABLET BY MOUTH EVERY MORNING FLUOXETINE HCL 60 MG TABS take 1 tablet by mouth daily PHENTERMINE (ADIPEX-P) 37.5 MG TABLET Take 1 tablet by mouth every morning (before breakfast) for 30 days. ROSUVASTATIN (CRESTOR) 10 MG TABLET Take 1 tablet by mouth daily ALLERGIES Penicillins FAMILY HISTORY Family History Problem Relation Age of Onset ? Heart Disease Father ? Other Father Blood Clots ? Heart Disease Brother ? Lung Cancer Brother ? Breast Cancer Paternal Aunt Early 40s ? Lung Cancer Maternal Grandfather SOCIAL HISTORY Social History Socioeconomic History ? Marital status: Single Spouse name: None ? Number of children: None ? Years of education: None ? Highest education level: None Occupational History ? None Tobacco Use ? Smoking status: Current Every Day Smoker Packs/day: 0.50 Years: 20.00 Pack years: 10.00 Types: Cigarettes Start date: 12/01/1999 ? Smokeless tobacco: Never Used ? Tobacco comment: let us know when ready Vaping Use ? Vaping Use: Every day Substance and Sexual Activity ? Alcohol use: No ? Drug use: No Comment: caffeine use 3-4 Soft Drinks Daily ? Sexual activity: None Other Topics Concern ? None Social History Narrative ? None Social Determinants of Health Financial Resource Strain: Low Risk ? Difficulty of Paying Living Expenses: Not very hard Food Insecurity: No Food Insecurity ? Worried About Running Out of Food in the Last Year: Never true ? Ran Out of Food in the Last Year: Never true Transportation Needs: ? Lack of Transportation (Medical): Not on file ? Lack of Transportation (Non-Medical): Not on file Physical Activity: ? Days of Exercise per Week: Not on file ? Minutes of Exercise per Session: Not on file Stress: ? Feeling of Stress : Not on file Social Connections: ? Frequency of Communication with Friends and Family: Not on file ? Frequency of Social Gatherings with Friends and Family: Not on file ? Attends Christianity Services: Not on file ? Active Member of Clubs or Organizations: Not on file ? Attends Club or Organization Meetings: Not on file ? Marital Status: Not on file Intimate Partner Violence: ? Fear of Current or Ex-Partner: Not on file ? Emotionally Abused: Not on file ? Physically Abused: Not on file ? Sexually Abused: Not on file Housing Stability: ? Unable to Pay for Housing in the Last Year: Not on file ? Number of Places Lived in the Last Year: Not on file ? Unstable Housing in the Last Year: Not on file SCREENINGS PHYSICAL EXAM (up to 7 for level 4, 8 or more for level 5) ED Triage Vitals [06/02/21 1228] BP Temp Temp Source Pulse Resp SpO2 Height Weight 135/79 97.8 ?F (36.6 ?C) Temporal 92 16 94 % -- -- CONSTITUTIONAL: AOx4, no apparent distress, appears stated age HEAD: normocephalic, atraumatic EYES: PERRL, EOMI ENT: moist mucous membranes, uvula midline NECK: supple, symmetric BACK: symmetric LUNGS: clear to auscultation bilaterally CARDIOVASCULAR: regular rate and rhythm, no murmurs, rubs or gallops ABDOMEN: soft, non- (more content not included)... Normal [facility] Incision/Drainageon 06-02-19 Orville Trotter DO 06/02/2021 2:03 PM Incision/Drainage Date/Time: 06/02/2021 2:01 PM Performed by: Orville Trotter DO Authorized by: Orville Trotter DO Consent: Consent obtained: Verbal Consent given by: Patient Risks discussed: Bleeding, incomplete drainage and pain Location: Type: Abscess Size: 2 cm x 2 cm Location: Right axilla. Pre-procedure details: Skin preparation: Chloraprep Anesthesia (see MAR for exact dosages): Anesthesia method: Local infiltration Local anesthetic: Lidocaine 1% WITH epi Procedure type: Complexity: Simple Procedure details: Incision types: Stab incision Incision depth: Dermal Scalpel blade: 11 Wound management: Probed and deloculated, irrigated with saline and extensive cleaning Drainage: Purulent Drainage amount: Moderate Wound treatment: Wound left open Packing materials: None Post-procedure details: Patient tolerance of procedure: Tolerated well, no immediate complications [facility] Work Phone: [facility] Work Phone: Basic Metabolic Panelon 03-18 Anion gap [Moles/Vol] 4 mmol/L Normal 3-13 [facility] Comment on above: Performed By: #### T ROPN, LACT3, DDI2, HEMDF, BMP3 #### [facility] [address] [place] [address] Calcium [Mass/Vol] 9.4 mg/dL Normal 8.4-10.4 [facility] Comment on above: Performed By: #### T ROPN, LACT3, DDI2, HEMDF, BMP3 #### [facility] [address] [place] [address] CO2 [Moles/Vol] 26 mmol/L Normal 22-30 [facility] Comment on above: Performed By: #### T ROPN, LACT3, DDI2, HEMDF, BMP3 #### [facility] [address] [place] [address] Glucose [Mass/Vol] 104 mg/dL High 70-100 [facility] Comment on above: Performed By: #### T ROPN, LACT3, DDI2, HEMDF, BMP3 #### [facility] [address] [place] [address] Urea nitrogen [Mass/Vol] 11 mg/dL Normal 9-20 [facility] Comment on above: Performed By: #### T ROPN, LACT3, DDI2, HEMDF, BMP3 #### [facility] [address] [place] [address] Creatinine [Mass/Vol] 0.68 mg/dL Normal 0.52-1.25 [facility] Comment on above: Performed By: #### T ROPN, LACT3, DDI2, HEMDF, BMP3 #### [facility] [address] [place] [address] eGFR OTHER > 90.0 Normal >60 [facility] Comment on above: Result Comment: KDIG O guidelines provide the following GFR categories: Stage GFR(ml/min/1.73 m2) Terms G1 >=90 Normal or high G2 60-89 Mildly decreased* G3a 45-59 Mildly to moderately decreased G3b 30-44 Moderately to severely decreased G4 15-29 Severely decreased G5 <15 Kidney failure *Relative to young adult level. In the absence of evidence of kidney damage, neither GFR category G1 nor G2 fulfill the criteria for CKD. The CKD-EPI equation is validated in individuals 18 years of age and older. Currently the best equation for estimating glomerular filtration rate (GFR) from serum creatinine in children is the Bedside Goff equation. It is less accurate in patients with extremes of muscle mass, restriction of dietary protein, ingestion of creatine, extra-renal metabolism of creatinine, or treatment with medications that affect renal tubular creatinine secretion. Performed By: #### T ROPN, LACT3, DDI2, HEMDF, BMP3 #### [facility] [address] [place] [address] GFR/1.73 sq M.predicted among blacks MDRD (S/P/Bld) [Vol rate/Area] mL/min/{1.73_m2} Normal >60 [facility] Comment on above: Performed By: #### T ROPN, LACT3, DDI2, HEMDF, BMP3 #### [facility] [address] [place] [address] Potassium [Moles/Vol] 4.0 mmol/L Normal 3.5-5.1 [facility] Comment on above: Performed By: #### T ROPN, LACT3, DDI2, HEMDF, BMP3 #### [facility] [address] [place] [address] Sodium [Moles/Vol] 141 mmol/L Normal 135-145 [facility] Comment on above: Performed By: #### T ROPN, LACT3, DDI2, HEMDF, BMP3 #### [facility] [address] [place] [address] Chloride [Moles/Vol] 111 mmol/L High 98-107 [facility] Comment on above: Performed By: #### T ROPN, LACT3, DDI2, HEMDF, BMP3 #### [facility] [address] [place] [address] Anion gap [Moles/Vol] 4 mmol/L 3 - 13 mmol/L [facility] Calcium [Mass/Vol] 9.4 mg/dL 8.4 - 10. 4 mg/dL [facility] Chloride [Moles/Vol] 111 mmol/L High 98 - 10 7 mmol/L [facility] CO2 [Moles/Vol] 26 mmol/L 22 - 30 mmol/L [facility] Creatinine [Mass/Vol] 0.68 mg/dL 0.52 - 1.25 mg/dL [facility] EGFR IF NonAfrican [place]an >90.0 >60 mL/min [facility] Comment on above: KDIGO guidelines pro vide the following GFR categories: Stage GFR(ml/min/1.73 m2) Terms G1 >=90 Normal or high G2 60-89 Mildly decreased* G3a 45-59 Mildly to moderately decreased G3b 30-44 Moderately to severely decreased G4 15-29 Severely decreased G5 <15 Kidney failure *Relative to young adult level. In the absence of evidence of kidney damage, neither GFR category G1 nor G2 fulfill the criteria for CKD. The CKD-EPI equation is validated in individuals 18 years of age and older. Currently the best equation for estimating glomerular filtration rate (GFR) from serum creatinine in children is the Bedside Goff equation. It is less accurate in patients with extremes of muscle mass, restriction of dietary protein, ingestion of creatine, extra-renal metabolism of creatinine, or treatment with medications that affect renal tubular creatinine secretion. GFR/1.73 sq M.predicted among blacks MDRD (S/P/Bld) [Vol rate/Area] mL/min/{1.73_m2} >60 mL/min [facility] Glucose [Mass/Vol] 104 mg/dL High 70 - 100 mg/dL [facility] Interpretation and review of laboratory results Abnormal [facility] Potassium [Moles/Vol] 4.0 mmol/L 3.5 - 5.1 mmol/L [facility] Sodium [Moles/Vol] 141 mmol/L 135 - 145 mmol/L [facility] Urea nitrogen (BldV) [Mass/Vol] 11 mg/dL 9 - 20 mg/dL [facility] CBC WITH AUTO DIFFERENTIALon 04-04-2021 Absolute Baso # 0.0 10*3/uL 0.0 - 0.2 10*3/uL [facility] Absolute Neut # 3.2 10*3/uL 1.8 - 7.0 10*3/uL [facility] Basophils/100 WBC (Bld) 0.4 % 0.0 - 2.0 % [facility] Eosinophils (Bld) [#/Vol] 0.0 10*3/uL 0.0 - 0.5 10*3/uL [facility] Eosinophils/100 WBC (Bld) 0.6 % Low 1.0 - 6.0 % [facility] Granulocytes/100 WBC (Bld) 56.2 % 40.0 - 80.0 % [facility] Hematocrit (Bld) [Volume fraction] 40.2 % 35.0 - 47.0 % [facility] Hemoglobin.gastrointes tinal spec 1 Ql (Stl) 13.6 g/dL 11.7 - 16.0 g/dL [facility] Interpretation and review of laboratory results Abnormal [facility] Lymphocytes (Bld) [#/Vol] 1.9 10*3/uL 1.0 - 4.3 10*3/uL [facility] Lymphocytes/100 WBC (Bld) 33.5 % 20.0 - 40.0 % [facility] MCH (RBC) [Entitic mass] 30.5 pg 26.0 - 34.0 pg [facility] MCHC (RBC) [Mass/Vol] 33.8 % 32.0 - 36.0 % [facility] MCV (RBC) [Entitic vol] 90.2 fL 79.0 - 98.0 fL [facility] Monocytes (Bld) [#/Vol] 0.5 10*3/uL 0.0 - 0.8 10*3/uL [facility] Monocytes/100 WBC (Bld) 9.3 % 2.0 - 10.0 % [facility] Platelet distribution width (Bld) [Ratio] 13.5 % 11.5 - 14.5 % [facility] Platelet mean volume (Bld) [Entitic vol] 7.1 fL Low 7.4 - 10.4 fL [facility] Platelets (Bld) [#/Vol] 237 10*3/uL 140 - 440 10*3/uL [facility] RBC (Bld) [#/Vol] 4.46 10*6/uL 3.80 - 5.2 0 10*6/uL [facility] WBC (Bld) [#/Vol] 5.7 10*3/uL 3.6 - 10.7 10*3/uL [facility] Test Performed by [facility], [address] [facility] COVID-19, Flu A/B, and RSV C omboon 04-04-2021 Influenza A by PCR Not detected [facility] Influenza B by PCR Not detected [facility] Interpretation and review of laboratory results Abnormal [facility] RSV PCR Not Detected. Expected Result: Not Detected _ Method: Real-time, RT-PCR This assay was developed by [employer] and distributed under an Emergency Use Authorization (EUA) granted by the FDA for the qualitative detection of nucleic acids from SARS-CoV-2, Influenza A, Influenza B, and Respiratory Syncytial Virus. Provider and patient fact sheets can be found at https://www.fda.gov/med ia/960780/download and https://www.fda.gov/med ia/730559/download. [facility] SARS-CoV-2 (COVID-19) RNA JOSLYN+probe Ql (Unsp spec) Detected Abnormal [facility] Test Performed by [facility], [address] [place] [address]. , [address] [facility] CR Chest PA/LATon 04-04-2021 CR Chest PA/LAT Patient Name: SAVI CAN Diagnostic Radiology ACCESSION EXAM DATE/TIME PROCEDURE ORDERING PROVIDER [id number] 04/04/2021 13:40 EST CR Chest PA and LAT MD GRAY DOUGALAS R. CPT code 05780 Reason For Exam (CR Chest PA and LAT) covid +. CP. PNA? Report EXAMINATION: CHEST RADIOGRAPH CLINICAL INDICATION: Shortness of breath, chest pain TECHNIQUE: Two views of the chest COMPARISON: 07/16/2019. FINDINGS: Cardiomediastinal silhouette is normal. Diffuse coarsened reticulonodular opacities, which represent multifocal airspace disease versus interstitial edema. No pleural effusion or pneumothorax. No acute osseous abnormality. IMPRESSION: Diffuse coarsened reticulonodular opacities, which may represent multifocal airspace disease versus interstitial edema. Report Dictated on Final Dictating Physician: MD NELSON, AKSHAT NAVARRO Signed Date and Time: 04/04/2021 2:08 pm Signed by: MD NELSON, AKSHAT NAVARRO Transcribed Date and Time: 04/04/2021 2:10 Normal [facility] D-Dimer, Innovanceon 021 D-Dimer, Innovance 0.37 mg/L Normal <0.19-0.50 [facility] Comment on above: Result Comment: Inno hernandez D-Dimer values of <0.50 mg/L FEU can be used in combination with a pre-test probability model (e.g. Well's) to exclude pulmonary embolism (PE) disease, as well as an aid in the diagnosis of deep vein thrombosis (DVT). Performed By: #### T ROPN, LACT3, DDI2, HEMDF, BMP3 #### [facility] [address] [place] [address] D-Dimer, Quantitativeon 03-18 D-Dimer, Quant 0.37 mg/L <0.19 - 0.50 [facility] Comment on above: [employer] D-Dimer va lues of <0.50 mg/L FEU can be used in combination with a pre-test probability model (e.g. Well's) to exclude pulmonary embolism (PE) disease, as well as an aid in the diagnosis of deep vein thrombosis (DVT). Test Performed by [facility], [address] LAB [facility] Hemogram w/ Autodiffon 04-04 Abs Baso Cnt 0.0 10*3/uL Normal 0.0-0.2 [facility] Comment on above: Performed By: #### T ROPN, LACT3, DDI2, HEMDF, BMP3 #### [facility] [address] [place] [address] Abs Neutrophile Cnt 3.2 10*3/uL Normal 1.8-7.0 [facility] Comment on above: Performed By: #### T ROPN, LACT3, DDI2, HEMDF, BMP3 #### [facility] [address] [place] [address] Basophils/100 WBC (Bld) 0.4 % Normal 0.0-2.0 [facility] Comment on above: Performed By: #### T ROPN, LACT3, DDI2, HEMDF, BMP3 #### [facility] [address] [place] [address] Eosinophils (Bld) [#/Vol] 0.0 10*3/uL Normal 0.0-0.5 [facility] Comment on above: Performed By: #### T ROPN, LACT3, DDI2, HEMDF, BMP3 #### [facility] [address] [place] [address] Eosinophils/100 WBC (Bld) 0.6 % Low 1.0-6.0 [facility] Comment on above: Performed By: #### T ROPN, LACT3, DDI2, HEMDF, BMP3 #### [facility] [address] [place] [address] Erythrocyte distribution width (RBC) [Ratio] 13.5 % Normal 11.5-14.5 [facility] Comment on above: Performed By: #### T ROPN, LACT3, DDI2, HEMDF, BMP3 #### [facility] [address] [place] [address] Granulocytes/100 WBC (Bld) 56.2 % Normal 40.0-80.0 [facility] Comment on above: Performed By: #### T ROPN, LACT3, DDI2, HEMDF, BMP3 #### [facility] [address] [place] [address] Hematocrit (Bld) [Volume fraction] 40.2 % Normal 35.0-47.0 [facility] Comment on above: Performed By: #### T ROPN, LACT3, DDI2, HEMDF, BMP3 #### [facility] [address] [place] [address] Hemoglobin (Bld) [Mass/Vol] 13.6 g/dL Normal 11.7-16.0 [facility] Comment on above: Performed By: #### T ROPN, LACT3, DDI2, HEMDF, BMP3 #### [facility] [address] [place] [address] Lymphocytes (Bld) [#/Vol] 1.9 10*3/uL Normal 1.0-4.3 [facility] Comment on above: Performed By: #### T ROPN, LACT3, DDI2, HEMDF, BMP3 #### [facility] [address] [place] [address] Lymphocytes/100 WBC (Bld) 33.5 % Normal 20.0-40.0 [facility] Comment on above: Performed By: #### T ROPN, LACT3, DDI2, HEMDF, BMP3 #### [facility] [address] [place] [address] MCH (RBC) [Entitic mass] 30.5 pg Normal 26.0-34.0 [facility] Comment on above: Performed By: #### T ROPN, LACT3, DDI2, HEMDF, BMP3 #### [facility] [address] [place] [address] MCHC 33.8 % Normal 32.0-36.0 [facility] Comment on above: Performed By: #### T ROPN, LACT3, DDI2, HEMDF, BMP3 #### [facility] [address] [place] [address] MCV (RBC) [Entitic vol] 90.2 fL Normal 79.0-98.0 [facility] Comment on above: Performed By: #### T ROPN, LACT3, DDI2, HEMDF, BMP3 #### [facility] [address] [place] [address] Monocytes (Bld) [#/Vol] 0.5 10*3/uL Normal 0.0-0.8 [facility] Comment on above: Performed By: #### T ROPN, LACT3, DDI2, HEMDF, BMP3 #### [facility] [address] [place] [address] Monocytes/100 WBC (Bld) 9.3 % Normal 2.0-10.0 [facility] Comment on above: Performed By: #### T ROPN, LACT3, DDI2, HEMDF, BMP3 #### [facility] [address] [place] [address] Platelet mean volume (Bld) [Entitic vol] 7.1 fL Low 7.4-10.4 [facility] Comment on above: Performed By: #### T ROPN, LACT3, DDI2, HEMDF, BMP3 #### [facility] [address] [place] [address] Platelets (Bld) [#/Vol] 237 10*3/uL Normal 140-440 [facility] Comment on above: Performed By: #### T ROPN, LACT3, DDI2, HEMDF, BMP3 #### [facility] [address] [place] [address] RBC (Bld) [#/Vol] 4.46 10*6/uL Normal 3.80-5.20 [facility] Comment on above: Performed By: #### T ROPN, LACT3, DDI2, HEMDF, BMP3 #### [facility] [address] [place] [address] WBC (Bld) [#/Vol] 5.7 10*3/uL Normal 3.6-10.7 [facility] Comment on above: Performed By: #### T ROPN, LACT3, DDI2, HEMDF, BMP3 #### [facility] [address] [place] [address] Lactic Acidon 04-04-2021 Lactate [Moles/Vol] 0.9 mmol/L Normal 0.7-2.0 [facility] Comment on above: Performed By: #### T ROPN, LACT3, DDI2, HEMDF, BMP3 #### [facility] [address] [place] [address] Lactic Acid, Plasmaon 2020 Lactate [Moles/Vol] 0.9 mmol/L 0.7 - 2. 0 mmol/L [facility] No Panel Informationon 04-04 Test Performed by [facility], [address] , [place], [place] [id number] [place] [address] LAB [facility] SARS-CoV-2, Flu A/B and RSVo n 04-04-2021 SARS-CoV-2 (COVID-19) RNA JOSLYN+probe Ql (Unsp spec) SARS-CoV-2 --> Status: F DETECTED Flu A PCR --> Status: F Not Detected. Flu B PCR --> Status: F Not Detected. RSV PCR --> Status: F Not Detected. Expected Result: Not Detected _ Method: Real-time, RT-PCR This assay was developed by [employer] and distributed under an Emergency Use Authorization (EUA) granted by the FDA for the qualitative detection of nucleic acids from SARS-CoV-2, Influenza A, Influenza B, and Respiratory Syncytial Virus. Provider and patient fact sheets can be found at https://www.fda.gov/med ia/877272/download and https://www.fda.gov/med ia/707911/download. Expected Result: Not Detected _ Method: Real-time, RT-PCR This assay was developed by [employer] and distributed under an Emergency Use Authorization (EUA) granted by the FDA for the qualitative detection of nucleic acids from SARS-CoV-2, Influenza A, Influenza B, and Respiratory Syncytial Virus. Provider and patient fact sheets can be found at https://www.fda.gov/med ia/893133/download and https://www.fda.gov/med ia/127294/download. Normal [facility] Comment on above: Performed By: #### C VFLR #### [facility] [address] [place] [address] , [address] Troponinon 04-04-2021 Troponin I.cardiac [Mass/Vol] ng/mL 0.000 - 0.034 ng/mL [facility] Comment on above: . Test Performed by [facility], [address] , [place], [place] [address] [facility] Troponin Ion 04-04-2021 Troponin I.cardiac [Mass/Vol] ng/mL Normal 0.000-0.034 [facility] Comment on above: Result Comment: . Performed By: #### T ROPN, LACT3, DDI2, HEMDF, BMP3 #### [facility] [address] [place] [address] XR CHEST (2 VW)on 04-04-2021 Patient Name: SAVI CAN Diagnostic Radiology ACCESSION EXAM DATE/TIME PROCEDURE ORDERING PROVIDER [id number] 04/04/2021 13:40 EST CR Chest PA & LAT MD GRAY DOUGALAS R. CPT code 26630 Reason For Exam (CR Chest PA & LAT) covid +. CP. PNA? Report EXAMINATION: CHEST RADIOGRAPH CLINICAL INDICATION: Shortness of breath, chest pain TECHNIQUE: Two views of the chest COMPARISON: 07/16/2019. FINDINGS: Cardiomediastinal silhouette is normal. Diffuse coarsened reticulonodular opacities, which represent multifocal airspace disease versus interstitial edema. No pleural effusion or pneumothorax. No acute osseous abnormality.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 HEMDF, CK3, CMP3 #### [address] Platelet mean volume (Bld) [Entitic vol] 7.5 fL Normal 7.4-10.4 [facility] Comment on above: Performed By: #### E TOH4, HEMDF, CK3, CMP3 #### [address] Platelets (Bld) [#/Vol] 236 10*3/uL Normal 140-440 [facility] Comment on above: Performed By: #### E TOH4, HEMDF, CK3, CMP3 #### [address] RBC (Bld) [#/Vol] 4.27 10*6/uL Normal 3.80-5.20 [facility] Comment on above: Performed By: #### E TOH4, HEMDF, CK3, CMP3 #### [address] WBC (Bld) [#/Vol] 7.6 10*3/uL Normal 3.6-10.7 [facility] Comment on above: Performed By: #### E TOH4, HEMDF, CK3, CMP3 #### [address] [place] [address] No Panel InformationOrdered By: Samreen Wayne on 12-24-2020 Test Performed by [facility], [address] [place] [address] [facility] Work Phone: [facility] Work Phone: [id number] 12-24-2020 SARS-CoV-2 (COVID-19) RNA JOSLYN+probe Ql (Unsp spec) SARS-CoV-2 --> Status: F Not Detected. Expected Result: Not Detected _ Real-time, RT-PCR performed on the [employer] System by the [facility] Microbiology Service. Negative results do not preclude SARS-CoV-2 infection and should not be used as the sole basis for treatment or other patient management decisions. This assay was developed by [employer] and distributed under an Emergency Use Authorization (EUA) granted by the FDA for the qualitative detection of SARS-CoV-2 nucleic acid. Expected Result: Not Detected _ Real-time, RT-PCR performed on the [employer] System by the [facility] [place] Service. Negative results do not preclude SARS-CoV-2 infection and should not be used as the sole basis for treatment or other patient management decisions. This assay was developed by [employer] and distributed under an Emergency Use Authorization (EUA) granted by the FDA for the qualitative detection of SARS-CoV-2 nucleic acid. Normal [facility] Comment on above: Performed By: #### C OVID #### [facility] [address] [place] [address] UrinalysisOrdered By: Samreen Wayne on 12-24-2020 Appearance (U) Clear Clear NA [facility] Work Phone: Comment on above: . Bacteria, UA Few Abnormal Negative /[HPF] [facility] Work Phone: Comment on above: . Bilirubin Urine Negative Negative mg/dL [facility] Work Phone: Comment on above: . Color (U) Yellow Lt. Yellow NA [facility] Work Phone: Comment on above: . Glucose, Ur Normal Normal (<70) mg/dL [facility] Work Phone: Comment on above: . Interpretation and review of laboratory results Abnormal [facility] Work Phone: Ketones Ql (U) Negative Negative mg/dL [facility] Work Phone: Comment on above: . LEUKOCYTES, UA 75 Abnormal Negative Bartolo/uL [facility] Work Phone: Comment on above: . Mucous Threads Many Abnormal Negative /[LPF] [facility] Work Phone: [phone] Comment on above: . Nitrite, Urine Negative Negative NA [facility] Work Phone: [phone] Comment on above: . Occult Blood,Urine Negative Negative mg/dL [facility] Work Phone: Comment on above: . pH (U) 5.5 [pH] [facility] Work Phone: Comment on above: . Protein (U) [Mass/Vol] 20 mg/dL Abnormal Negative [facility] Work Phone: [phone] Comment on above: . RBC, UA 0-2 0 - 2 /[HPF] [facility] Work Phone: Comment on above: . Specific [place], Urine 1.026 [facility] Work Phone: Comment on above: . Squam Epithel, UA 3-5 3 - 5 /[HPF] [facility] Work Phone: Comment on above: . Urobilinogen, Urine 2 mg/dL Abnormal Normal (0-1) [facility] Work Phone: Comment on above: . WBC, UA 11-25 Abnormal 0 - 5 /[HPF] [facility] Work Phone: Comment on above: . Test Performed by [facility], [address] [place] [address] [facility] Work Phone: [facility] Work Phone: Urine Drug ScreenOrdered By: Samreen Wayne on 12-24-2020 Amphetamines, urine Negative [facility] Work Phone: Barbiturates, Ur Negative [facility] Work Phone: Benzodiazepine Ur Qual Negative [facility] Work Phone: Cocaine Metabolites, Ur Negative [facility] Work Phone: Methadone, Urine Negative [facility] Work Phone: Opiates, Urine Negative [facility] Work Phone: Oxycodone Screen, Ur Negative [facility] Work Phone: PCP, Urine Negative [facility] Work Phone: Comment on above: The expected value f or all of the drugs listed above is Negative. The following drugs or drug groups have been screened for by Immunoassay at the following thresholds: Amphetamine class (1000 ng/mL), Barbiturates (200 ng/mL), Benzodiazepines (200 ng/mL), Cocaine (300 ng/mL), Methadone (300 ng/mL), Opiates (300 ng/mL), Oxycodone (100 ng/mL), and PCP (25 ng/mL). NOTE: These results are for medical treatment only. Analysis performed using non-forensic procedures. POSITIVE results are NOT confirmed by a more specific alternative method unless requested. If confirmation is needed, request confirmation under separate order. Test Performed by [facility], [address] [place] [address] [facility] Work Phone: [facility] Work Phone: HISTORY PHYSICALon 0 HISTORY PHYSICAL HNO ID: [id number] Author: Leonardo Lam Service: ? Author Type: Physician Type: HANDP Filed: 10/13/2019 2:58 PM Note Text: HISTORY AND PHYSICAL Savi Vasquez, 49 year old female Current history and physical on file: No Is a new History and Physical required for today's visit? Yes Indication for procedure: Change in bowel movements PROCEDURE(S) SCHEDULED FOR: Colonoscopy with or without biopsies and with or without removal of polyps or lesions, dilation (any means), treatment of bleeding (any means), based on clinical findings. BASELINE BEHAVIOR: Calm BASELINE ORIENTATION: A AND O x3 All medications and allergies reviewed: Yes Skin Assessment: Warm dry muscus membranes pink Airway/Respiratory Assessment: Airway: visualization of the uvula- Yes Mouth: opening greater than 2 fingerbreadths- Yes Neck: full range of motion- Yes Breath sounds clear/equal- Yes Cardiac Assessment: Regular rate and rhythm without murmur Abdominal Assessment: Abdomen soft, non-tender, no masses or organomegaly. Sedation Plan: MAC Additional Comments: None Leonardo Lam MD [facility] OBSOLETEon 10-13-2019 OBSOLETE Procedure (ASCNOR) SAVI VASQUEZ ([id number]) 1970 F Date Time Provider Department 10/13/19 2:30 PM LEONARDO LAM During your visit today, we recorded the following information about you: Temperature Pulse Respiration Blood pressure 98.6 degrees 84/minute 16/minute 148/99 Weight Height 90.7 kg 1.651 m Annmarie Garcia LPN 10/13/2019 2:29 PM Signed AMBULATORY PATIENT EDUCATION NOTE TOPIC: GI PROCEDURES: colonoscopy READINESS TO LEARN INSTRUCTION PROVIDED TO: Patient, readness to learn accessed prior to procedure, Family member and Patient and family member COGNITIVE ABILITY: Alert and oriented PTED MOTIVATION TO LEARN: Interested FAMILY SUPPORT: High - Very involved in pt care IPATIENT LEARNS BEST BY: Individual Instruction Written Instruction - Hand-outs Verbal Instruction FACTORS AFFECTING LEARNING: None PHYSICAL LIMITATIONS AFFECTING LEARNING: None Annmarie Garcia LPN 10/13/2019 2:04 PM Signed Discharge instructions given and patient voices understanding. All questions answered. Annmarie Lam MD 10/13/2019 2:58 PM Signed HISTORY AND PHYSICAL Savi Vasquez, 49 year old female Current history and physical on file: No Is a new History and Physical required for today's visit? Yes Indication for procedure: Change in bowel movements PROCEDURE(S) SCHEDULED FOR: Colonoscopy with or without biopsies and with or without removal of polyps or lesions, dilation (any means), treatment of bleeding (any means), based on clinical findings. BASELINE BEHAVIOR: Calm BASELINE ORIENTATION: A AND O x3 All medications and allergies reviewed: Yes Skin Assessment: Warm dry muscus membranes pink Airway/Respiratory Assessment: Airway: visualization of the uvula- Yes Mouth: opening greater than 2 fingerbreadths- Yes Neck: full range of motion- Yes Breath sounds clear/equal- Yes Cardiac Assessment: Regular rate and rhythm without murmur Abdominal Assessment: Abdomen soft, non-tender, no masses or organomegaly. Sedation Plan: MAC Additional Comments: None MD Susan Mckee APRN.CRNA 10/13/2019 3:04 PM Signed POST ANESTHESIA EVALUATION NOTE SERVICE DATE: 10/13/2019 SERVICE TIME: 3:04 PM : 1970 Vitals: 10/13/19 1154 10/13/19 1430 Temp: 36.3 ?C (97.4 ?F) 37 ?C (98.6 ?F) 10/13/19 1154 10/13/19 1430 BP: 124/76 148/99 10/13/19 1154 10/13/19 1430 Pulse: 83 84 10/13/19 1154 10/13/19 1430 Resp: 16 16 10/13/19 1154 10/13/19 1430 SpO2: 94% 97% Validated Vital Signs: Yes POST ANES STATUS: No apparent anesthetic complications. The patient is appropriately hydrated with stable respiratory and cardiovascular status. Patient has safe and adequate airway control. The patient has appropriate pain relief and no significant post operative nausea or vomiting. The patient has achieved baseline mental status. Intra-Operative Events: No Significant Anesthesia Events Further assessment by Anesthesia Service: None Other Remarks: SIGNATURE: Susan Barrios APRN.CRNA PATIENT NAME: Savi Vasquez DATE: October 13, 2019 TIME: 3:04 PM PAGER/CONTACT #: Lotus López RN 10/13/2019 3:23 PM Signed POST OP LEARNING RESPONSE INSTRUCTION PROVIDED TO: Patient METHOD OF INSTRUCTION: Individual instruction Written instruction - handouts Verbal instruction PATIENT / FAMILY RESPONSE: Verbalizes understanding of: POST-PROCEDURE INSTRUCTIONS-Correct actions to take to reduce post procedure complications FOLLOW-UP PLAN: Patient instructed to call with any further issues SUPPLEMENTAL MATERIAL: Post op discharge instructions Brochures given to patient: BROCHURE [[id number]] Colon polyps and high fiber REFERRAL (RECOMMENDATION): Office f/u in 3 months. Repeat colonoscopy in 5 years Electronically Signed By: Lotus López RN In Department: AMBULATORY SURGERY Referring Provider: LEONARDO LAM [[id number]] Allergies As of Date: 10/13/2019 (No Known Allergies) Date Reviewed: 10/13/2019 Reviewed by: Annmarie Garcia LPN - Fully Assessed Reason for Visit: Outpatient Colonoscopy [482] Cmt: Abdominal pain, change in bowel habits Visit Diagnosis:Generalized abdominal pain [R10.84] Order(s):COLONOSCOPY - DIAGNOSTIC [[id number]] Order #: [id number]. #[id number] N-ENDO SURGICAL PATHOLOGY [[id number]] Order #: [id number] Prescriptions as of 10/13/2019 Sig: PREDNISONE 20 MG TABLET Take 1 tablet by mouth once d* Patient not taking: Reported on 10/13/2019 IBUPROFEN 600 MG TABLET Take 1 tablet by mouth every * Patient not taking: Reported on 10/13/2019 Problem List As Of Date 10/13/2019 Noted Resolved Generalized abdominal pain [R10.84] 09/14/2019 Change in bowel habits [R19.4] 09/14/2019 Other instructions from your clinician: Discharge instructions given and patient voices understanding. All questions answered. Annmarie Garcia LPN Visit Notes: >> Annmarie Garcia LPN [place] October 13, 2019 2:03 PM Status: Signed AMBULATORY PATIENT EDUCATION NOTE TOPIC: GI PROCEDURES: colonoscopy READINESS TO LEARN INSTRUCTION PROVIDED TO: Patient, readness to learn accessed prior to procedure, Family member and Patient and family member COGNITIVE ABILITY: Alert and oriented PTED MOTIVATION TO LEARN: Interested FAMILY SUPPORT: High - Very involved in pt care IPATIENT LEARNS BEST BY: Individual Instruction Written Instruction - Hand-outs Verbal Instruction FACTORS AFFECTING LEARNING: None PHYSICAL LIMITATIONS AFFECTING LEARNING: None Annmarie Garcia LPN >> Susan (Samuel) Sophie [place] October 13, 2019 3:04 PM Status: Signed POST ANESTHESIA EVALUATION NOTE SERVICE DATE: 10/13/2019 SERVICE TIME: 3:04 PM : 1970 Vitals: 10/13/19 1154 10/13/19 1430 Temp: 36.3 ?C (97.4 ?F) 37 ?C (98.6 ?F) 10/13/19 1154 10/13/19 1430 BP: 124/76 148/99 10/13/19 1154 10/13/19 1430 Pulse: 83 84 10/13/19 1154 10/13/19 1430 Resp: 16 16 10/13/19 1154 10/13/19 1430 SpO2: 94% 97% Validated Vital Signs: Yes POST ANES STATUS: No apparent anesthetic complications. The patient is appropriately hydrated with stable respiratory and cardiovascular status. Patient has safe and adequate airway control. The patient has appropriate pain relief and no significant post operative nausea or vomiting. The patient has achieved baseline mental status. Intra-Operative Events: No Significant Anesthesia Events Further assessment by Anesthesia Service: None Other Remarks: SIGNATURE: Susan Barrios APRN.CRNA PATIENT NAME: Savi Vasquez DATE: October 13, 2019 TIME: 3:04 PM PAGER/CONTACT #: >> Lotus López RN [facility] October 13, 2019 3:09 PM Status: Signed POST OP LEARNING RESPONSE INSTRUCTION PROVIDED TO: Patient METHOD OF INSTRUCTION: Individual instruction Written instruction - handouts Verbal instruction PATIENT / FAMILY RESPONSE: Verbalizes understanding of: POST-PROCEDURE INSTRUCTIONS-Correct actions to take to reduce post procedure complications FOLLOW-UP PLAN: Patient instructed to call with any further issues SUPPLEMENTAL MATERIAL: Post op discharge instructions Brochures given to patient: BROCHURE [[id number]] Colon polyps and high fiber REFERRAL (RECOMMENDATION): Office f/u in 3 months. Repeat colonoscopy in 5 years Electronically Signed By: Lotus López RN In Department: AMBULATORY SURGERY Disposition: Return in about 3 months (around 01/13/2020). Follow-up and Disposition History Recorded Encounter Status:Closed by LEONARDO LAM on 10/13/19 Normal [facility] SURGICAL PATHOLOGYon 020 SURGICAL PATHOLOGY Specimen originated from [facility] Specimen #: [id number] Submitting Physician: LEONARDO LAM FINAL DIAGNOSIS Sigmoid colon, polyp, biopsy - Focal ulcerations, possible hyperplastic polyp. CHATO/glw 10/14/2019 Jhon Park MD, Ph.D. (Electronic Signature) SPECIMEN SUBMITTED A: SIGMOID COLON POLYP CLINICAL DATA PAIN GROSS DESCRIPTION A. Received in formalin is one piece of olivier, soft tissue measuring 0.2 x 0.2 x 0.2 cm. Totally submitted in one cassette. Gross examination performed at [facility], [address] [place] [address] J 10/14/2019 12:17:45 AM Date of Report: 10/17/2019 Date of Procedure: 10/13/2019 Date of Receipt: 10/13/2019 Submitted by: LEONARDO LAM Location: ASNO Diagnostic interpretation performed at [facility], [address] [place] [address]. CLIA Number: [id number] Normal [facility] Coronavirus 2019on 0 COVID 19 Result [employer] Negative Normal Negative for COVID19 (SARS CoV2) by PCR. [facility] Comment on above: Result Comment: This test was developed and its performance characteristics determined by [facility]'s [facility] [place]. This test has been authorized by FDA under an Emergency Use Authorization (EUA). This test has been validated in accordance with the FDA's Guidance Document Policy for Diagnostics Testing in Laboratories Certified to Perform High Complexity Testing under CLIA prior to Emergency use Authorization for Coronavirus Disease 2019 during the Public Health Emergency issued on July 16, 2019. Performed By: #### C OVID #### [place] [address] COVID 19 Source [employer] Nasopharyngeal Swab Normal [facility] Comment on above: Performed By: #### C OVID #### [facility] [address] [place], [place] [address] PROGRESSon 09-14-2019 PROGRESS HNO ID: [id number] Author: Leonardo Lam Service: ? Author Type: Physician Type: Progress Notes Filed: 09/14/2019 10:27 AM Note Text: CHIEF COMPLAINT: abdominal pain, change in bowel habitus HPI: Svai Vasquez is a 49 year old female has noted change in her bowel habitus for last few months; some days constipation and other days diarrhea; has abdominal cramping off and on. Has hemorrhoids and they bleed off and on; has noted green color stools. Denies any nausea, vomiting, fever or chills. Record Review: [facility] / Outside records reviewed. PAST MEDICAL HISTORY Diagnosis Date - FHx: colon cancer Maternal grandfather. PAST SURGICAL HISTORY Procedure Laterality Date - HYSTERECTOMY HX 2008 - TUBAL LIGATION HX 1998 Allergies: ALLERGIES No Known Allergies Medications: peg 3350-Electrolytes (GOLYTELY) 236-22.74-6.74 -5.86 gram suspension Take 4,000 mL by mouth one time only for 1 dose. Refer to printed prep instructions from your doctor. predniSONE (DELTASONE) 20 mg tablet Take 1 tablet by mouth once daily. ibuprofen (MOTRIN) 600 mg tablet Take 1 tablet by mouth every 6 hours as needed for Pain. FAMILY HISTORY Problem Relation Age of Onset - Colon Cancer Maternal Grandfather - Heart Father Triple bypas. - Heart Attack Brother 2 Heart attacks with 2 stents. Employer And Job Title: None on file Years Of Education Completed: Not specified Marital Status: Single Social History Tobacco Use - Smoking status: Current Every Day Smoker Packs/day: 0.50 - Smokeless tobacco: Never Used Substance Use Topics - Alcohol use: No - Drug use: Not Currently Types: Marijuana Comment: Used in the past. Review of Systems: Review of Systems Respiratory: Positive for cough. Gastrointestinal: Positive for abdominal distention, abdominal pain, anal bleeding, constipation, diarrhea and nausea. Change in bowel habits. All other systems reviewed and are negative. Are you taking any blood thinners? No Physical Examination: There were no vitals taken for this visit. Physical Exam ; not done due to COVID19 Assessment: Generalized abdominal pain Change in bowel habits Plan: [facility] on 09/14/19 - COLONOSCOPY - DIAGNOSTIC [place] schedule colonoscopy 1-2 months High fiber diet and metamucil I have confirmed and edited as necessary, the PFSH and ROS obtained by others. Return if symptoms worsen or fail to improve. Leonardo Lam MD DATE: 09/14/19 TIME: 10:24 AM Normal [facility] Basic Metabolic Panelon 06-19 Anion gap [Moles/Vol] 8 mmol/L [place], [place] Calcium [Mass/Vol] 9.0 mg/dL 8.4 - 10. 4 mg/dL [place], [place] Chloride [Moles/Vol] 107 mmol/L 98 - 10 7 mmol/L [place], [place] CO2 [Moles/Vol] 24 mmol/L 22 - 30 mmol/L [place] Creatinine [Mass/Vol] 0.72 mg/dL 0.52 - 1.25 mg/dL [place] EGFR IF NonAfrican [place]an >60.0 >60 mL/min [place] Comment on above: Source- MDRD equatio n with creatinine calibration to IDMS(NKDEP) eGFR not recommended for drug dose adjustment GFR/1.73 sq M predicted among blacks MDRD (S/P/Bld) [Vol rate/Area] mL/min/{1.73_m2} >60 mL/min [place] Glucose [Mass/Vol] 105 mg/dL High 70 - 100 mg/dL [place] Interpretation and review of laboratory results Abnormal [place] Potassium [Moles/Vol] 4.2 mmol/L 3.5 - 5.1 mmol/L [place] Sodium [Moles/Vol] 139 mmol/L 135 - 145 mmol/L [place] Urea nitrogen [Mass/Vol] 16 mg/dL 7 - 20 mg/dL [place] Test Performed by [facility], [address] , [place] [id number] [place] [address] Hemogram (CBC)on 07-16-2019 Erythrocyte distribution width (RBC) [Ratio] 13.6 % 11.5 - 14.5 % [place] Hematocrit (Bld) [Volume fraction] 39.1 % 35 - 47 % [place] Hemoglobin (Bld) [Mass/Vol] 13.0 g/dL 11.7 - 16 g/dL [place] MCH (RBC) [Entitic mass] 30.8 pg 26 - 34 pg [place] MCHC (RBC) [Mass/Vol] 33.2 % 32 - 36 % [place] MCV (RBC) [Entitic vol] 92.7 fL 79 - 98 fL [place] Platelet mean volume (Bld) [Entitic vol] 7.6 fL 7.4 - 10.4 fL [place] Platelets (Bld) [#/Vol] 254 10*3/uL 140 - 440 10*3/uL [place] RBC (Bld) [#/Vol] 4.22 10*6/uL 3.8 - 5.2 10*6/uL [place] WBC (Bld) [#/Vol] 8.9 10*3/uL 3.6 - 10.7 10*3/uL [place] Test Performed by [facility], [address] , [address] Rapid influenza A/B antigens on 07-16-2019 INFLUENZA A Not Detected Not Detected [place] INFLUENZA B Not Detected Not Detected [place] Comment on above: Method: Isothermal n ucleic acid amplification technology. Test Performed by [facility], [address] , [address] XR CHEST STANDARD (2 VW)on 0 07-16-2019 [facility], [facility] Incoming Radiology Results From [facility] - 07/16/2019 9:44 PM EST Patient Name: SAVI VASQUEZ ---Diagnostic Radiology--- Exam Date/Time 07/16/2019 21:40:07 EST Exam CR Chest PA/LAT Ordering Physician MD KAYLEE, MAGALI Ann Accession Number [id number] CPT4 Codes 74918 () Reason For Exam cough, fever, sob Report Examination: PA and lateral chest Clinical Indication: cough, fever, sob Comparison: 01/26/2019 Findings: Lungs appear normally inflated. Minimal subsegmental atelectasis along the lingula. There is no focal consolidation, effusion, or pulmonary edema identified. The cardiomediastinal silhouette is normal in size and configuration. [id number] thoracic kyphosis with spondylosis.. Impression: No acute cardiopulmonary process. Report Dictated on --- Final --- Dictating Physician: MD MARTINEZ ANTHONY J Signed Date and Time: 07/16/2019 9:43 pm Signed by: MD MARTINEZ ANTHONY J Transcribed Date and Time: 07/16/2019 9:44 [place] Patient Name: SAVI CAN ---Diagnostic Radiology--- Exam Date/Time 07/16/2019 21:40:07 EST Exam CR Chest PA/LAT Ordering Physician MD KAYLEE, MAGALI Ann Accession Number [id number] CPT4 Codes 68481 () Reason For Exam cough, fever, sob Report Examination: PA and lateral chest Clinical Indication: cough, fever, sob Comparison: 01/26/2019 Findings: Lungs appear normally inflated. Minimal subsegmental atelectasis along the lingula. There is no focal consolidation, effusion, or pulmonary edema identified. The cardiomediastinal silhouette is normal in size and configuration. [id number] thoracic kyphosis with spondylosis.. Impression: No acute cardiopulmonary process. Report Dictated on --- Final --- Dictating Physician: MD MARTINEZ ANTHONY J Signed Date and Time: 07/16/2019 9:43 pm Signed by: MD MARTINEZ ANTHONY J Transcribed Date and Time: 07/16/2019 9:44 [place] UrinalysisOrdered By: Shiva Meng on 04-27-2019 Appearance (U) Clear Clear NA [facility] Work Phone: Bilirubin Urine Negative Negative mg/dL [facility] Work Phone: Comment on above: Reference Range: Neg ative Color (U) LIGHT YELLOW Lt. Yellow NA [facility] Work Phone: Glucose, Ur Normal Normal (<70) mg/dL [facility] Work Phone: Ketones Ql (U) Negative Negative mg/dL [facility] Work Phone: Comment on above: Reference Range: Neg ative LEUKOCYTES, UA Negative Negative Bartolo/uL [facility] Work Phone: Comment on above: Reference Range: Neg ative Nitrite, Urine Negative Negative NA [facility] Work Phone: Comment on above: Reference Range: Neg ative Occult Blood,Urine Negative Negative mg/dL [facility] Work Phone: Comment on above: Reference Range: Neg ative pH (U) 5.0 [pH] [facility] Work Phone: Specific [place], Urine 1.022 [facility] Work Phone: Total Protein, Urine Negative Negativ e mg/dL [facility] Work Phone: Comment on above: Reference Range: Neg ative Urobilinogen, Urine Normal Normal ( 0-1) mg/dL [facility] Work Phone: Test Performed by [facility], [address] [place] [address] [address] Work Phone: CKon 01-26-2019 Total CK 90 U/L 30 - 170 U/L [facility], [place] Comprehensive Metabolic Pane pedro 01-26-2019 Albumin [Mass/Vol] 4.2 g/dL 3.5 - 5 g/dL [place], [place] ALP [Catalytic activity/Vol] 77 U/L 38 - 126 U/L [facility], [place] ALT [Catalytic activity/Vol] 22 U/L 13 - 69 U/L [facility], [place] Anion gap [Moles/Vol] 6 mmol/L [facility], [place] AST [Catalytic activity/Vol] 30 U/L 15 - 46 U/L [place] Bilirubin Ql (U) 0.5 mg/dL 0.2 - 1.3 mg/dL [place] Calcium [Mass/Vol] 9.4 mg/dL 8.4 - 10. 4 mg/dL [place] Chloride [Moles/Vol] 107 mmol/L 98 - 10 7 mmol/L [place] CO2 [Moles/Vol] 27 mmol/L 22 - 30 mmol/L [place] Creatinine [Mass/Vol] 0.65 mg/dL 0.52 - 1.25 mg/dL [place] EGFR IF NonAfrican [place]an >60.0 >60 mL/min [place] Comment on above: Source- MDRD equatio n with creatinine calibration to IDMS(NKDEP) eGFR not recommended for drug dose adjustment GFR/1.73 sq M predicted among blacks MDRD (S/P/Bld) [Vol rate/Area] mL/min/{1.73_m2} >60 mL/min [place] Glucose [Mass/Vol] 94 mg/dL 70 - 100 mg/dL [place] Potassium [Moles/Vol] 4.3 mmol/L 3.5 - 5.1 mmol/L [place] Protein [Mass/Vol] 7.4 g/dL 6.3 - 8.2 g/dL [place] Sodium [Moles/Vol] 140 mmol/L 135 - 145 mmol/L [place] Urea nitrogen [Mass/Vol] 11 mg/dL 7 - 20 mg/dL [place] Hemogram (CBC) w/Auto Diffon 01-26-2019 Absolute Baso # 0.0 10*3/uL 0 - 0.2 10*3/uL [place] Absolute Neut # 3.1 10*3/uL 1.8 - 7 10*3/uL [place] Basophils/100 WBC (Bld) 0.7 % 0 - 2 % [place] Eosinophils (Bld) [#/Vol] 0.0 10*3/uL 0 - 0.5 10*3/uL [place] Eosinophils/100 WBC (Bld) 0.7 % Low 1 - 6 % [place] Erythrocyte distribution width (RBC) [Ratio] 13.6 % 11.5 - 14.5 % [place] Granulocytes/100 WBC (Bld) 50.4 % 40 - 80 % [place] Hematocrit (Bld) [Volume fraction] 40.1 % 35 - 47 % [place] Hemoglobin (Bld) [Mass/Vol] 13.8 g/dL 11.7 - 16 g/dL [place] Interpretation and review of laboratory results Abnormal [place] Lymphocytes (Bld) [#/Vol] 2.4 10*3/uL 1 - 4.3 10*3/uL [place] Lymphocytes/100 WBC (Bld) 38.9 % 20 - 40 % [place] MCH (RBC) [Entitic mass] 31.3 pg 26 - 34 pg [place] MCHC (RBC) [Mass/Vol] 34.4 % 32 - 36 % [place] MCV (RBC) [Entitic vol] 91.1 fL 79 - 98 fL [place] Monocytes (Bld) [#/Vol] 0.6 10*3/uL 0 - 0.8 10*3/uL [place] Monocytes/100 WBC (Bld) 9.3 % 2 - 10 % [place] Platelet mean volume (Bld) [Entitic vol] 7.2 fL Low 7.4 - 10.4 fL [place] Platelets (Bld) [#/Vol] 220 10*3/uL 140 - 440 10*3/uL [place] RBC (Bld) [#/Vol] 4.41 10*6/uL 3.8 - 5.2 10*6/uL [place] WBC (Bld) [#/Vol] 6.1 10*3/uL 3.6 - 10.7 10*3/uL [place] Test Performed by [facility], [address], [place], [place] [id number] [place] [address] Otheron 01-26-2019 Test Performed by [facility], [address], [place], [place] [address] [place] Troponin 4Hon 01-26-2019 Troponin I.cardiac [Mass/Vol] ng/mL 0 - 0.034 ng/mL [place] Comment on above: < 0.034 = negative 0.034 0.120 = indeterminate > 0.120 = positive Test Performed by [facility], [address] [place], [place], [place] [address] [place] XR CHEST PORTABLEon 01-27-20 19 Patient Name: SAVI CAN ---Diagnostic Radiology--- Exam Date/Time 01/26/2019 11:54:59 EDT Exam CR Chest Portable Ordering Physician UNASSIGNED, UNASSIGNED Accession Number [id number] CPT4 Codes 32999 () Reason For Exam Chest pain Report Clinical History: Chest pain Comparison: 07/14/2017 Technique: Single AP radiograph of the chest. Findings: The heart size and mediastinal contours are normal. Pulmonary vascularity is normal and there is no pneumothorax. The lungs are clear with no acute infiltrate or effusion. Linear subsegmental atelectasis is seen within the left lung base. Impression: No acute consolidative process. Report Dictated on --- Final --- Dictating Physician: MD LEE JAMES Signed Date and Time: 01/26/2019 12:23 pm Signed by: MD LEE JAMES Transcribed Date and Time: 01/26/2019 12:24 [place] [facility], [facility] Incoming Radiology Results From [facility] - 01/26/2019 12:24 PM EDT Patient Name: SAVI VASQUEZ ---Diagnostic Radiology--- Exam Date/Time 01/26/2019 11:54:59 EDT Exam CR Chest Portable Ordering Physician UNASSIGNED, UNASSIGNED Accession Number [id number] CPT4 Codes 79426 () Reason For Exam Chest pain Report Clinical History: Chest pain Comparison: 07/14/2017 Technique: Single AP radiograph of the chest. Findings: The heart size and mediastinal contours are normal. Pulmonary vascularity is normal and there is no pneumothorax. The lungs are clear with no acute infiltrate or effusion. Linear subsegmental atelectasis is seen within the left lung base. Impression: No acute consolidative process. Report Dictated on --- Final --- Dictating Physician: MD LEE JAMES Signed Date and Time: 01/26/2019 12:23 pm Signed by: MD LEE JAMES Transcribed Date and Time: 01/26/2019 12:24 [employer] [facility] [place] Vital Signs Date Time Vital Sign Value Performing Clinician Faci [facility] 10-02-2023 11:15-0400 Body height 167.6 cm [employer] Work Phone: [facility] 10-02-2023 11:15-0400 Body mass index (BMI) [Ratio] 33.73 kg/m2 [employer] Work Phone: [employer] 10-02-2023 11:15-0400 Body weight 94.8 kg [employer] Work Phone: [employer] 08-04-2023 10:40-0400 Diastolic blood pressure 85 mm[Hg] [employer] Work Phone: [employer] 08-04-2023 10:40-0400 Heart rate 83 /min [employer] Work Phone: [employer] 08-04-2023 10:40-0400 Respiratory rate 18 /min [employer] Work Phone: [employer] 08-04-2023 10:40-0400 SaO2% (BldA) [Mass fraction] 96 % [facility] Work Phone: [employer] 08-04-2023 10:40-0400 Systolic blood pressure 133 mm[Hg] [facility] Work Phone: [employer] 08-04-2023 10:22-0400 Body temperature 97.39 [degF] [facility] Work Phone: [employer] 08-04-2023 09:48-0400 Body height 167.6 cm [employer] Work Phone: [employer] 08-04-2023 09:48-0400 Body mass index (BMI) [Ratio] 33.89 kg/m2 [employer] Work Phone: [employer] 08-04-2023 09:48-0400 Body weight 95.25 kg [facility] Work Phone: [email or web address] 07-07-2023 12:56-0500 Body mass index (BMI) [Ratio] 34.7 kg/m2 Orin Bridenthal [employer] Work Phone: [employer] 07-07-2023 12:56-0500 Body temperature 100 [degF] Orin Bridenthal ENGINE TE[employer] - [employer]IC[employer] Work Phone: [email or web address] 07-07-2023 12:56-0500 Body weight 97.52 kg Orin Bridenthal ENGINE TESTER - [employer] APPLICATOR Work Phone: [email or web address] 07-07-2023 12:56-0500 Diastolic blood pressure 83 mm[Hg] Orin Bridenthal ENGINE TESTER - [employer] APPLICATOR Work Phone: [employer] 07-07-2023 12:56-0500 Heart rate 87 /min Orin Bridenthal ENGINE TESTER - [employer] APPLICATOR Work Phone: [employer] 07-07-2023 12:56-0500 Respiratory rate 20 /min Orin Bridenthal ENGINE TE[employer] - [employer] APPLICATOR Work Phone: [email or web address] 07-07-2023 12:56-0500 SaO2% (BldA) [Mass fraction] 97 % Orin Bridenthal ENGINE TE[employer] - [employer] AP[employer]IC[employer] Work Phone: [employer] 07-07-2023 12:56-0500 Systolic blood pressure 137 mm[Hg] Orin Bridenthal ENGINE TESTER - [employer] APPLICATOR Work Phone: [email or web address] 06-11-2023 10:41-0500 Body height 167.6 cm [facility] ENGINE TESTER - [employer] APPLICATOR Work Phone: [facility] [employer] 06-11-2023 10:41-0500 Body mass index (BMI) [Ratio] 35.22 kg/m2 Sudhakar Aguilarer ENGINE TESTER - [employer] APPLICATOR Work Phone: [facility] [employer] 06-11-2023 10:41-0500 Body temperature 96.8 [degF] Sudhakar Aguilarer ENGINE TESTER - [employer] APPLICATOR Work Phone: [facility] [employer] 06-11-2023 10:41-0500 Body weight 98.97 kg Sudhakar Aguilarer ENGINE TESTER - [employer] APPLICATOR Work Phone: [facility] [employer] 06-11-2023 10:41-0500 Diastolic blood pressure 94 mm[Hg] Sudhakar Aguilarer ENGINE TESTER - [employer] APPLICATOR Work Phone: [facility] [employer] 06-11-2023 10:41-0500 Systolic blood pressure 156 mm[Hg] Sudhakar Aguilarer ENGINE TESTER - [employer] APPLICATOR Work Phone: [facility] [employer] 04-13-2023 11:23-0500 Diastolic blood pressure 80 mm[Hg] Efraín Pulido ENGINE TESTER - [employer] APPLICATOR Work Phone: [facility] [employer] 04-13-2023 11:23-0500 Systolic blood pressure 136 mm[Hg] Efraín Pulido ENGINE TESTER - [employer] APPLICATOR Work Phone: [facility] [employer] 04-13-2023 11:07-0500 Body height 167.6 cm Efraín Pulido ENGINE TESTER - [employer] APPLICATOR Work Phone: [facility] [employer] 04-13-2023 11:07-0500 Body mass index (BMI) [Ratio] 35.09 kg/m2 Efraín Pulido ENGINE TESTER - [employer] APPLIC[employer] Work Phone: [email or web address] 04-13-2023 11:07-0500 Body weight 98.61 kg Efraín Ashok ENGINE TESTER - [employer] APPLICATOR Work Phone: [facility] [employer] 04-13-2023 11:07-0500 Heart rate 101 /min Efraín Ashok ENGINE TESTER - [employer] APPLICATOR Work Phone: [facility] [employer] 04-13-2023 11:07-0500 SaO2% (BldA) [Mass fraction] 97 % Efraín Pulido ENGINE TESTER - [employer] APPLICATOR Work Phone: [email or web address] 03-13-2023 07:26-0400 Body mass index (BMI) [Ratio] 34.38 kg/m2 Efraín Pulido ENGINE TESTER - [employer] APPLICATOR Work Phone: [facility] [employer] 03-13-2023 07:26-0400 Body temperature 97.3 [degF] Efraín Pulido ENGINE TESTER - [employer] APPLICATOR Work Phone: [facility] [employer] 03-13-2023 07:26-0400 Body weight 96.62 kg Efraín Pulido ENGINE TESTER - [employer] APPLICATOR Work Phone: [email or web address] 03-13-2023 07:26-0400 Diastolic blood pressure 81 mm[Hg] Efraín Pulido ENGINE TESTER - [employer] APPLICATOR Work Phone: [facility] [employer] 03-13-2023 07:26-0400 Heart rate 94 /min Efraín Pulido ENGINE TESTER - [employer] APPLICATOR Work Phone: [facility] [employer] 03-13-2023 07:26-0400 Respiratory rate 20 /min Efraín Pulido ENGINE TE[employer] - [employer] APPLIC[employer] Work Phone: [email or web address] 03-13-2023 07:26-0400 SaO2% (BldA) [Mass fraction] 98 % Efraín Pulido ENGINE TESTER - [employer] APPLICATOR Work Phone: [facility] [employer] 03-13-2023 07:26-0400 Systolic blood pressure 132 mm[Hg] Efraín Pulido ENGINE TESTER - [employer] APPLICATOR Work Phone: [facility] [employer] 06-02-2021 12:28-0500 Body temperature 97.81 [degF] Orville Gombash DO Work Phone: [employer] 06-02-2021 12:28-0500 Diastolic blood pressure 79 mm[Hg] Orville Gombash DO Work Phone: [facility] 06-02-2021 12:28-0500 Heart rate 92 /min Orville Gombash DO Work Phone: [employer] 06-02-2021 12:28-0500 Respiratory rate 16 /min Orville Gombash DO [facility] Phone: [facility] 06-02-2021 12:28-0500 SaO2% (BldA) [Mass fraction] 94 % Orville Trotter DO Work Phone: [facility] 06-02-2021 12:28-0500 Systolic blood pressure 135 mm[Hg] Orville Priceash DO Work Phone: [facility] 04-04-2021 14:00-0500 Heart rate 79 /min Franck Gray MD Work Phone: [facility] 04-04-2021 14:00-0500 Respiratory rate 16 /min Franck Gray MD Work Phone[facility] 04-04-2021 14:00-0500 SaO2% (BldA) [Mass fraction] 97 % Franck Gray MD Work Phone: [facility] 04-04-2021 11:05-0500 Body height 167.6 cm Franck Gray MD Work Phone: [facility] 04-04-2021 11:05-0500 Body mass index (BMI) [Ratio] 27.92 kg/m2 Franck Gray MD Work Phone: [facility] 04-04-2021 11:05-0500 Body temperature 98.6 [degF] Franck Gray MD Work Phone: [facility] 04-04-2021 11:05-0500 Body weight 78.47 kg Franck Gray MD Work Phone: [facility] 04-04-2021 11:05-0500 Diastolic blood pressure 69 mm[Hg] Franck Gray MD [facility] Phone: [facility] 04-04-2021 11:05-0500 Systolic blood pressure 149 mm[Hg] Franck Gray MD Work Phone: [facility] 12-24-2020 04:33-0400 Body temperature 97.9 [degF] Savi Gomez MD Work Phone: [facility] Work Phone: 08-09-2021 04:33-0400 Diastolic blood pressure 84 mm[Hg] Savi Gomez MD Work Phone: [facility] Work Phone: 12-24-2020 04:33-0400 Heart rate 74 /min Savi Gomez MD Work Phone: [facility] Work Phone: 12-24-2020 04:33-0400 Respiratory rate 16 /min Savi Gomez MD Work Phone: [facility] Work Phone: 12-24-2020 04:33-0400 SaO2% (BldA) [Mass fraction] 95 % Savi Gomez MD Work Phone: [facility] Work Phone: 12-24-2020 04:33-0400 Systolic blood pressure 138 mm[Hg] Savi Gomez MD Work Phone: [facility] Work Phone: 12-24-2020 01:08-0400 Body height 165.1 cm Savi Gomez MD Work Phone: [facility] Work Phone: 12-24-2020 01:08-0400 Body mass index (BMI) [Ratio] 30.45 kg/m2 Savi Gomez MD Work Phone: [facility] Work Phone: 12-24-2020 01:08-0400 Body weight 83.01 kg Savi Gomez MD Work Phone: [facility] Work Phone: 07-16-2019 23:23-0500 BP Diastolic 77 mm[Hg] [facility] , 07-16-2019 23:23-0500 BP Systolic 134 mm[Hg] [facility] , [place] 07-16-2019 23:23-0500 Pulse (Heart Rate) 82 /min Magali Gaffney [facility], [place] 07-16-2019 23:23-0500 Respiratory Rate 14 /min Magali Armstrong [facility] [place] , [place] 07-16-2019 21:01-0500 BMI (Body Mass Index) 29.05 kg/m2 [facility] [place] [place] 07-16-2019 21:01-0500 Body Temperature 99 [degF] Magali Armstrong [facility], [place] 07-16-2019 21:01-0500 Body weight 81.65 kg Magali Gaffney [facility] , [place] 07-16-2019 21:01-0500 Height 167.6 cm Magali Gaffney [facility] , [place] 07-16-2019 21:01-0500 Pulse Oximetry 96 % Magali Gaffney [facility] , [place] 04-27-2019 11:29-0500 Body height 165.1 cm Shiva Meng MD Work Phone: [employer] Work Phone: 04-27-2019 11:29-0500 Body mass index (BMI) [Ratio] 29.95 kg/m2 Shiva Meng MD Work Phone: [employer] Work Phone: 04-27-2019 11:29-0500 Body temperature 98.29 [degF] Shiva Meng MD Work Phone: [employer] Work Phone: 04-27-2019 11:29-0500 Body weight 81.65 kg Shiva Meng MD Work Phone: [employer] Work Phone: 04-27-2019 11:29-0500 Diastolic blood pressure 93 mm[Hg] Shiva Meng MD Work Phone: [employer] Work Phone: 04-27-2019 11:29-0500 Heart rate 83 /min Shiva Meng MD Work Phone: [employer] Work Phone: 04-27-2019 11:29-0500 Respiratory rate 16 /min Shiva Meng MD Work Phone: [employer] Work Phone: 04-27-2019 11:29-0500 SaO2% (BldA) [Mass fraction] 99 % Shiva Meng MD Work Phone: [facility] Work Phone: 04-27-2019 11:29-0500 Systolic blood pressure 157 mm[Hg] Shiva Meng MD Work Phone: [facility] Work Phone: 01-26-2019 13:21-0400 BP Diastolic 85 mm[Hg] [place], [place] 01-26-2019 13:21-0400 BP Systolic 143 mm[Hg] [place] 01-26-2019 13:21-0400 Pulse (Heart Rate) 74 /min [place] 01-26-2019 13:21-0400 Pulse Oximetry 99 % [place] 01-26-2019 13:21-0400 Respiratory Rate 16 /min [place] 01-26-2019 11:02-0400 BMI (Body Mass Index) 32.28 kg/m2 [place] 01-26-2019 11:02-0400 Body Temperature 99.5 [degF] [place], [place] 01-26-2019 11:02-0400 Body weight 90.72 kg [place] Encounters Encounter Date Encounter Type Care Provider Facility Start: 10-02-2023 End: 10-03-2023 ambulatory EFRAÍN PULIDO [facility] Start: 10-02-2023 End: 10-02-2023 Subsequent hospital visit by physician Efraín Pulido [employer] Work Phone: [facility] Comment on above: Screening mammogram for breast cancer Start: 08-17-2023 Telephone encounter Kip alcantara Work Phone: [facility] Gastroenterology Comment on above: Appointment Start: 08-04-2023 End: 08-04-2023 ambulatory ESTEBAN KELLEN [facility] Start: 08-04-2023 End: 08-04-2023 Subsequent hospital visit by physician Kip Agrawal Work Phone: [facility] End[facility] Comment on above: Generalized abdomina l pain; Abdominal distension (gaseous); Nausea; Gastro-esophageal reflux disease without esophagitis; Fatty (change of) liver, not elsewhere classified; Benign neoplasm of extrahepatic bile ducts Start: 07-07-2023 End: 07-07-2023 ambulatory Mari Teresa RN [facility] Clinical Communication Start: 07-07-2023 Patient encounter procedure Mari Teresa RN [facility] Clinical Communication Start: 07-07-2023 End: 07-07-2023 Office outpatient visit 15 minutes Orin Geovany [employer] TE[employer] APPLICATOR Work Phone: [facility] Family Medicine Comment on above: Acute non-recurrent frontal sinusitis (Primary Dx); Acute cough Start: 06-12-2023 Telephone encounter Mckayla Price MA [facility] Gastroenterology Comment on above: PA for CT Start: 06-11-2023 End: 06-11-2023 ambulatory [facility] Start: 06-11-2023 End: 06-11-2023 Office outpatient new 45 minutes [facility] ENGINE TESTER - [employer] APPLICATOR Work Phone: [facility] Gastroenterology Comment on above: Generalized abdomina l pain; Abdominal bloating; Nausea; Gastroesophageal reflux disease, unspecified whether esophagitis present; Fatty liver; Adenomyomatosis of gallbladder Start: 04-27-2023 Telephone encounter Sirena bates MD Work Phone: [facility] Gastroenterology Comment on above: Appointment Request (Gastroenterology ) Start: 04-20-2023 Telephone encounter Efraín Middleton [employer] TE[employer] APPLIC[employer] Work Phone: [facility] Comment on above: Results Start: 04-16-2023 End: 04-17-2023 ambulatory [facility] Start: 04-16-2023 End: 04-16-2023 Subsequent hospital visit by physician Efraín Pulido ENGINE TE[employer] - [employer] APPLICATOR Work Phone: [facility] Comment on above: Generalized abdomina l pain; Abdominal bloating; Nausea Start: 04-13-2023 End: 04-13-2023 ambulatory [facility] Start: 04-13-2023 End: 04-13-2023 Office outpatient visit 10 minutes Efraín Cerda Ashok ENGINE TE[employer] - [employer] APPLICATOR Work Phone: [facility] Comment on above: Generalized abdomina l pain (Primary Dx); Abdominal bloating; Weight gain; Class 2 obesity due to excess calories without serious comorbidity with body mass index (BMI) of 35.0 to 35.9 in adult Start: 04-13-2023 End: 04-13-2023 Office outpatient visit 15 minutes Efraín Pulido ENGINE TE[employer] - [employer] APPLICATOR Work Phone: [facility] Comment on above: Generalized abdomina l pain (Primary Dx); Abdominal bloating; Weight gain; Class 2 obesity due to excess calories without serious comorbidity with body mass index (BMI) of 35.0 to 35.9 in adult Start: 03-13-2023 End: 03-13-2023 ambulatory [facility] Start: 03-13-2023 End: 03-13-2023 Office outpatient visit 25 minutes Efraín Cerda Ashok ENGINE TESTER - STUCCO APPLICATOR Work Phone: [facility] Comment on above: Generalized abdomina l pain (Primary Dx); Abdominal bloating; Nausea; Gastroesophageal reflux disease, unspecified whether esophagitis present; Weight gain; Class 1 obesity due to excess calories without serious comorbidity with body mass index (BMI) of 34.0 to 34.9 in adult; Hyperlipidemia, unspecified hyperlipidemia type; Screening mammogram for breast cancer; Screening for diabetes mellitus Start: 06-02-2021 End: 06-02-2021 Emergency department patient visit Orville Trotter DO Work Phone: [facility] [place] Comment on above: Axillary abscess (Pr imary Dx) Start: 04-04-2021 End: 04-04-2021 Emergency department patient visit Franck Gray MD Work Phone: [facility] Comment on above: 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) Start: 12-24-2020 End: 12-24-2020 Emergency department patient visit Savi Gomez MD Work Phone: [facility] Emergency Dept Comment on above: Suicidal ideation (P rimary Dx); Suicidal behavior without attempted self-injury Start: 07-16-2019 End: 07-16-2019 Emergency department patient visit Magali Gaffney Work Phone: [facility] Comment on above: Acute bronchitis, un specified organism (Primary Dx); Acute nonintractable headache, unspecified headache type Start: 04-27-2019 End: 04-27-2019 Emergency department patient visit Shiva Meng MD Work Phone: [facility] Comment on above: Acute right-sided lo w back pain without sciatica (Primary Dx) Start: 01-26-2019 End: 01-26-2019 Emergency department patient visit Tyrese Araiza Feliciano Work Phone: [facility] [place] Comment on above: Nonspecific chest pa in (Primary Dx); Left-sided chest wall pain Procedures Date Procedure Procedure Detail Performing Clinician Start: 10-02-2023 End: 10-02-2023 Screening digital breast tomosynthesis bi Efraín Pulido ENGINE TESTER - STUCCO APPLICATOR Work Phone: Start: 03-13-2023 Lipid 1996 panel - Serum or Plasma Efraín Pulido ENGINE TESTER - STUCCO APPLICATOR Work Phone: Start: 08-21-2021 Lipid 1996 panel - Serum or Plasma Efraín Pulido ENGINE TESTER - STUCCO APPLICATOR Work Phone: Start: 06-02-2021 INCISION AND DRAINAGE Orville Trotter DO Work Phone: Start: 04-04-2021 Radiologic exam chest 2 views Franck Gray MD Work Phone: Start: 04-04-2021 Ecg routine ecg w/least 12 lds w/i&r Franck Gray MD Work Phone: Start: 04-04-2021 Basic metabolic panel calcium total Franck Gray MD Work Phone: Start: 04-04-2021 COVID-19, FLU A/B, AND RSV COMBO Franck Gray MD Work Phone: Start: 12-24-2020 Ecg routine ecg w/least 12 lds w/i&r Samreen Wayne DO Work Phone: Start: 12-24-2020 Assay of ethanol Samreen Wayne DO Work Phone: Start: 12-24-2020 Comprehensive metabolic panel Samreen Wayne DO Work Phone: Start: 12-24-2020 COVID-19 Samreen Wayne DO Work Phone: Start: 12-24-2020 Drug screen class list a Samreen Wayne DO Work Phone: Start: 12-24-2020 Urnls dip stick/tablet rgnt auto w/o microscopy Samreen Wayne DO Work Phone: Start: 12-28-2019 H/O: hysterectomy History of hysterectomy Savi york MD Work Phone: Start: 10-13-2019 Colonoscopy Efraín Pulido ENGINE TESTER - STUCCO APPLICATOR Work Phone: Start: 07-16-2019 Radiologic exam chest 2 views Magali Sandhuowell Work Phone: Start: 07-16-2019 Basic metabolic panel calcium total Magali Gaffney Work Phone: Start: 07-16-2019 Blood count complete automated Magali Gaffney Work Phone: Start: 07-16-2019 Iaadiadoo influenza Magali Gaffney Work Phone: Start: 04-27-2019 Urnls dip stick/tablet rgnt auto w/o microscopy Shiva Meng MD Work Phone: Start: 01-26-2019 Assay of troponin quantitative Tyrese Araiza Feliciano Work Phone: Start: 01-26-2019 Blood count complete auto&auto difrntl wbc Tyrese Renh Work Phone: Start: 01-26-2019 Comprehensive metabolic panel Tyrese Araiza Floyd Work Phone: Start: 01-26-2019 Creatine kinase total Tyrese Araiza Floyd Work Phone: Start: 01-26-2019 Radiologic exam chest single view Tyrese Wiggins Work Phone: Start: 01-26-2019 Ecg routine ecg w/least 12 lds w/i&r Tyrese Wiggins Work Phone: Plan of Treatment Date Care Activity Detail Author Start: 10-12-2029 Screening for malignant neoplasm of colon [facility] Start: 2028 RSV Immunization aged 60 or older (1 - 1-dose 60+ series) RSV Immunization aged 60 or older (1 - 1-dose 60+ series) [facility] Start: 03-13-2028 Lipid panel Lipid Panel [facility] Start: 01-01-2027 DTaP/Tdap/Td vaccine (2 - Td or Tdap) DTaP/Tdap/Td vaccine (2 - Td or Tdap) [facility] Start: 01-01-2027 DTaP/Tdap/Td vaccine (2 - Td) DTaP/Tdap/Td vaccine (2 - Td) [place] Start: 01-01-2027 DTaP/Tdap/Td Vaccines (2 - Td or Tdap) DTaP/Tdap/Td Vaccines (2 - Td or Tdap) [facility] Start: 08-21-2026 Lipid panel Lipid Panel [facility] Start: 03-13-2026 Diabetes mellitus screening Diabetes Screening [facility] Start: 06-20-2025 Lipid panel Lipid screen [facility] Work Phone: Start: 10-12-2024 Screening for malignant neoplasm of colon Colon cancer screen colonoscopy [facility] Start: 10-01-2024 Screening for malignant neoplasm of breast Mammogram [facility] Start: 03-13-2024 COVID-19 Vaccine (#1) COVID-19 Vaccine (#1) [facility] Comment on above: Postponed from 1968 (Patient Refus ed) Start: 03-13-2024 COVID-19 Vaccine () COVID-19 Vaccine () [facility] Comment on above: Postponed from 01/16/2023 (Patient Refus ed) Start: 03-13-2024 Hepatitis B Vaccines (1 of 3 - 19+ 3-dose series) Hepatitis B Vaccines (1 of 3 - 19+ 3-dose series) [facility] Comment on above: Postponed from 1987 (Patient Refus ed) Start: 03-13-2024 Hepatitis B Vaccines (1 of 3 - 3-dose series) Hepatitis B Vaccines (1 of 3 - 3-dose series) [facility] Comment on above: Postponed from 1968 (Patient Refus ed) Start: 03-13-2024 Hepatitis C screening Hepatitis C Screening [facility] Comment on above: Postponed from 1986 (Patient Refus ed) Start: 03-13-2024 HIV screening HIV Screening [facility] Comment on above: Postponed from 1968 (Patient Refus ed) Start: 03-13-2024 Pneumococcal Vaccine: Pediatrics (0 to 5 Years) and At-Risk Patients (6 to 64 Years) (1 - PCV) Pneumococcal Vaccine: Pediatrics (0 to 5 Years) and At-Risk Patients (6 to 64 Years) (1 - PCV) [facility] Comment on above: Postponed from 1974 (Patient Refus ed) Start: 03-13-2024 Pneumococcal Vaccine: Pediatrics (0 to 5 Years) and At-Risk Patients (6 to 64 Years) (1 of 2 - PCV) Pneumococcal Vaccine: Pediatrics (0 to 5 Years) and At-Risk Patients (6 to 64 Years) (1 of 2 - PCV) [facility] Comment on above: Postponed from 1974 (Patient Refus ed) Start: 03-13-2024 Zoster Vaccines (1 of 2) Zoster Vaccines (1 of 2) [facility] Comment on above: Postponed from 2018 (Patient Refus ed) Start: 01-17-2024 Influenza vaccination Influenza Vaccine (Season Ended) [facility] Start: 11-15-2023 Influenza vaccination Influenza Vaccine (#1) [facility] Comment on above: Postponed from 01/16/2023 (Patient Refus ed) Start: 10-02-2023 End: 10-02-2023 Patient encounter procedure 10/02/2023 11:00 AM EDT Appointment [facility] [address] [place] [address] Efraín Pulido S, ENGINE TESTER - STUCCO APPLICATOR [address] [place] [address] [facility] Start: 09-12-2023 Depression Monitoring Depression Monitoring [facility] Start: 09-12-2023 Depresssion Monitoring Depresssion Monitoring [facility] Start: 08-04-2023 End: 08-04-2023 Admission to same day surgery center 08/04/2023 11:30 AM EDT - 08/04/2023 12:00 PM EDT Surgery [facility] [address] [place] [phone] Kip [address]rawal [address] [place] [address] ESOPHAGOGASTRODUODENOSCOPY DIAGNOSTIC [54155 (CPT )] [facility] Comment on above: ESOPHAGOGASTRODUODENOSCOPY DIAGNOSTIC [4 4627 (CPT )] Start: 08-04-2023 End: 08-04-2023 Esophagogastroduodenoscopy transoral diagnostic ESOPHAGOGASTRODUODENOSCOPY DIAGNOSTIC Generalized abdominal pain Abdominal distension (gaseous) Nausea Gastro-esophageal reflux disease without esophagitis Fatty (change of) liver, not elsewhere classified Benign neoplasm of extrahepatic bile ducts 08/04/2023 11:30 AM EDT [facility] Start: 08-04-2023 Subsequent hospital visit by physician 08/04/2023 11:30 AM EDT Hospital Encounter [facility] [address] [place] [address] Marta Agrawalysethan [address] [place] [address] [facility] Start: 08-04-2023 End: 08-04-2023 Esophagogastroduodenoscopy transoral diagnostic ESOPHAGOGASTRODUODENOSCOPY DIAGNOSTIC Generalized abdominal pain Abdominal distension (gaseous) Nausea Gastro-esophageal reflux disease without esophagitis Fatty (change of) liver, not elsewhere classified Benign neoplasm of extrahepatic bile ducts 08/04/2023 10:05 AM EDT [facility] Start: 07-09-2023 End: 07-09-2023 Patient encounter procedure 07/09/2023 9:50 AM EST Appointment [facility] [address] [place] [phone] Efraín Pulido, ENGINE TESTER - STUCCO APPLICATOR [address] [facility] [place] [id number] [facility] Start: 06-11-2023 End: 06-11-2024 CT Abdomen and Pelvis W contrast IV CT abdomen pelvis w contrast Imaging Routine Generalized abdominal pain Abdominal bloating Nausea Gastroesophageal reflux disease, unspecified whether esophagitis present Expected: 06/11/2023, Expires: 06/11/2024 [facility] Work Phone: Comment on above: Expected: 06/11/2023, Expires: Start: 06-11-2023 End: 06-11-2023 Patient encounter procedure 06/11/2023 10:40 AM EST Office Visit [facility] G[facility] [address] [place] [phone] Sudhakar Infante ENGINE TESTER - STUCCO APPLICATOR [address] [facility] [address] [place] [address] [facility] Start: 05-01-2023 End: 05-01-2023 Telemedicine consultation with patient 05/01/2023 2:40 PM EST Telemedicine [facility] Family Medicine [address] [place] [address] [place] [address] Efraín Pulido, ENGINE TESTER - STUCCO APPLICATOR [address] [place] [address] [facility] Start: 04-16-2023 End: 04-16-2023 Patient encounter procedure 04/16/2023 2:00 PM EST Appointment [facility] [address] [place] [phone] Efraín Pulido, ENGINE TESTER - STUCCO APPLICATOR [address] [facility] [place] [address] [facility] Start: 03-13-2023 End: 03-13-2024 CBC W Auto Differential panel - Blood CBC auto differential Lab Routine Generalized abdominal pain Abdominal bloating Nausea Gastroesophageal reflux disease, unspecified whether esophagitis present Weight gain Class 1 obesity due to excess calories without serious comorbidity with body mass index (BMI) of 34.0 to 34.9 in adult Hyperlipidemia, unspecified hyperlipidemia type Expected: 03/13/2023 (Approximate), Expires: 03/13/2024 [facility] Comment on above: Expected: 03/13/2023 (Approximate), Expi res: 03/13/2024 Start: 03-13-2023 End: 03-13-2024 Comprehensive metabolic 1998 panel - Serum or Plasma Comprehensive metabolic panel Lab Routine Generalized abdominal pain Abdominal bloating Nausea Gastroesophageal reflux disease, unspecified whether esophagitis present Weight gain Class 1 obesity due to excess calories without serious comorbidity with body mass index (BMI) of 34.0 to 34.9 in adult Hyperlipidemia, unspecified hyperlipidemia type Screening for diabetes mellitus Expected: 03/13/2023 (Approximate), Expires: 03/13/2024 [facility] Comment on above: Expected: 03/13/2023 (Approximate), Expi res: 03/13/2024 Start: 03-13-2023 End: 03-13-2024 CT Abdomen WO contrast CT abdomen pelvis wo IV contrast Imaging Routine Generalized abdominal pain Abdominal bloating Nausea Gastroesophageal reflux disease, unspecified whether esophagitis present Weight gain Expected: 03/13/2023, Expires: 03/13/2024 [facility] Comment on above: Expected: 03/13/2023, Expires: Start: 03-13-2023 End: 03-13-2024 Lipid 1996 panel - Serum or Plasma Lipid panel Lab Routine Hyperlipidemia, unspecified hyperlipidemia type Expected: 03/13/2023 (Approximate), Expires: 03/13/2024 [email or web address] Comment on above: Expected: 03/13/2023 (Approximate), Expi res: 03/13/2024 Start: 03-13-2023 End: 05-13-2024 MG Breast - bilateral Screening Bilateral screening mammogram Imaging Routine Screening Mammogram For Breast Cancer Expected: 03/13/2023, Expires: 05/13/2024 [facility] Work Phone: Comment on above: Expected: 03/13/2023, Expires: Start: 03-13-2023 End: 03-13-2024 Thyrotropin [Units/volume] in Serum or Plasma TSH Lab Routine Nausea Weight gain Class 1 obesity due to excess calories without serious comorbidity with body mass index (BMI) of 34.0 to 34.9 in adult Expected: 03/13/2023 (Approximate), Expires: 03/13/[address] [facility] Comment on above: Expected: 03/13/2023 (Approximate), Expi res: 03/13/2024 Start: 03-13-2023 End: 03-13-2024 Thyroxine (T4) free [Mass/volume] in Serum or Plasma T4, free Lab Routine Nausea Weight gain Class 1 obesity due to excess calories without serious comorbidity with body mass index (BMI) of 34.0 to 34.9 in adult Expected: 03/13/2023 (Approximate), Expires: 03/13/[address] [facility] Comment on above: Expected: 03/13/2023 (Approximate), Expi res: 03/13/2024 Start: 03-13-2023 End: 03-13-2024 Triiodothyronine (T3) Free [Mass/volume] in Serum or Plasma T3, free Lab Routine Nausea Weight gain Class 1 obesity due to excess calories without serious comorbidity with body mass index (BMI) of 34.0 to 34.9 in adult Expected: 03/13/2023 (Approximate), Expires: 03/13/[address] [facility] [employer] Comment on above: Expected: 03/13/2023 (Approximate), Expi res: 03/13/2024 Start: 01-15-2023 Screening for malignant neoplasm of breast Breast cancer screen [facility] Start: 07-15-2022 Lipid screen Lipid screen [facility] [place] Start: 04-22-2022 Lipid panel Lipid screen [facility] Start: 04-18-2022 Depression Monitoring Depression Monitoring [facility] Start: 03-20-2022 COVID-19 Vaccine (1) COVID-19 Vaccine (1) [facility] Comment on above: Postponed from 1980 (Patient Refus ed) Postponed from 03/14 (Patient Refused) Start: 03-20-2022 HIV screening HIV screen [facility] Comment on above: Postponed from 1983 (Patient Refus ed) Start: 03-20-2022 Pneumococcal 0-64 years Vaccine (1 of 2 - PPSV23) Pneumococcal 0-64 years Vaccine (1 of 2 - PPSV23) [facility] Comment on above: Postponed from 1974 (Patient Refus ed) Start: 03-20-2022 Shingles Vaccine (1 of 2) Shingles Vaccine (1 of 2) [facility] Comment on above: Postponed from 2018 (Patient Refus ed) Start: 12-28-2021 Lipid panel Lipid screen [facility] Start: 11-14-2021 Influenza vaccination Flu vaccine (#1) [facility] Comment on above: Postponed from 01/16/2021 (Patient Refus ed) Start: 09-20-2021 Hepatitis C screening Hepatitis C screen [facility] Comment on above: Postponed from 1968 (Patient Refus ed) Start: 06-17-2021 End: 06-17-2021 Patient encounter procedure 06/17/2021 Office Visit Family Medicine Efraín Pulido, [facility] [address] [place] [address] [facility] Start: 04-22-2021 End: 04-22-2021 Patient encounter procedure 04/22/2021 Office Visit Family Medicine Efraín Pulido, ENGINE TESTER - [facility] [address] [place] [address] [facility] Start: 01-16-2021 Influenza vaccination Flu vaccine (#1) [facility] Work Phone: Start: 12-28-2020 End: 12-28-2020 Patient encounter procedure 12/28/2020 Office Visit Family Medicine Efraín Pulido, [facility] [address] [place] [address] [phone] [facility] Start: 12-26-2020 HIV screening HIV screen [facility] Work Phone: Comment on above: Postponed from 1983 (Patient Refus ed) Start: 07-20-2020 Breast cancer screen Breast cancer screen [place], [place] Start: 07-20-2020 Screening for malignant neoplasm of breast Breast cancer screen [facility] Work Phone: Start: 01-16-2019 Influenza vaccination Flu vaccine (#1) [place], [place] Start: 2018 Colon cancer screen colonoscopy Colon cancer screen colonoscopy [place], [place] Start: 2018 Shingles Vaccine (1 of 2) Shingles Vaccine (1 of 2) [place] Start: 2008 Screening for malignant neoplasm of breast Mammogram [facility] Start: 2003 Diabetes screen Diabetes screen [facility] Start: 1987 Hepatitis A Vaccines (1 of 2 - Risk 2-dose series) Hepatitis A Vaccines (1 of 2 - Risk 2-dose series) [facility] Start: 1986 Diabetes mellitus screening Diabetes Screening [facility] Start: 1983 HIV screen HIV screen [place], [place] Start: 1980 COVID-19 Vaccine (1) COVID-19 Vaccine (1) [facility] Work Phone: Start: 1974 Pneumococcal 0-64 years Vaccine (1 of 1 - PPSV23) Pneumococcal 0-64 years Vaccine (1 of 1 - PPSV23) [place] Start: 1974 Pneumococcal 0-64 years Vaccine (1 of 2 - PPSV23) Pneumococcal 0-64 years Vaccine (1 of 2 - PPSV23) [facility] Work Phone: Start: 1968 Screening for malignant neoplasm of colon [facility] End: 01-26-2019 CK ISOENZYMES CK ISOENZYMES Lab Routine One Time for 1 Occurrences starting 01/26/2019 until 01/26/2019 [place] Comment on above: One Time for 1 Occurrences starting 01/16 until 01/26/2019 CK ISOENZYMES CK ISOENZYMES La b STAT 01/26/2019 12:06 PM EDT [place] EKG 12 Lead [place], [place] EKG 12 Lead - Chest Pain EKG 12 Lead - Chest Pain ECG STAT 04/04/2021 12:56 PM EST [facility] Work Phone: Tissue exam [facility] [employer] Work Phone: Comment on above: Release Upon Ordering for 1 Occurrences starting 08/04/2023 End: 04-16-2023 [facility]domen [facility] Work Phone: Comment on above: Once for 1 Occurrences starting 04/16/20 23 until 04/16/2023 Immunizations Immunization Date Immunization Notes Care Provider Lydia palmer 06-06-2021 tuberculin skin test ; purified protein derivative solution, intradermal Efraín Pulido ENGINE TESTER - STUCCO APPLICATOR Work Phone: [facility] [employer] 01-01-2017 tetanus toxoid, redu pool diphtheria toxoid, and acellular pertussis vaccine, adsorbed Tyrese Wiggins [facility] Payers Date Payer Category Payer Medicaid [id number] 2022 Medicaid [id number] 2015 Unknown [facility] MEDICA[facility] xxxxxxxxxxx 2015-Present [phone] CLAIMS DEPARTMENT [address] [place] [address] xxxxxxxxxxx [id number] 2015 Unknown [id number] Social History Date Type Detail Facility Start: 12-01-1999 End: 06-11-2023 Tobacco smoking status RUST Current every day smoker [facility] Start: 12-01-1999 History of tobacco use Cigarette Smo ker [place], [place] Start: 01-26-2019 End: 03-13-2023 Cigarettes smoked current (pack per day) - Reported [place], [place] Start: 01-26-2019 End: 03-13-2023 Alcohol intake No [place], [place] Start: 1970 Sex Assigned At Not on file [place] Start: 07-16-2019 End: 10-02-2023 Alcohol intake Current non-drinker of alcohol (finding) [facility] Work Phone: Start: 12-24-2020 End: 06-11-2023 Tobacco use and exposure Never used [facility] Start: 06-19-2020 End: 10-18-2020 History SDOH Alcohol Frequency 1 [facility] Work Phone: Start: 06-19-2020 History SDOH Alcohol Std Drinks 99 [facility] Work Phone: Start: 10-18-2020 History SDOH Financial 4 [facility] Work Phone: Start: 12-01-2019 Tobacco Comment let us know when katharine dy [facility] Work Phone: Exposure to SARS-CoV -2 (event) Not sure [facility] Adolescent depressio n screening assessment 7 [facility] Goals Date Patient Goal Desired Activity /State Comment on above: Formatting of this n ote might be different from the original. Self-Management Plan: Anxiety/Depression Patient Stated Goal: To feel less anxious and depressed. Barriers to success: stress Plan for overcoming my barriers: Start taking medication as prescribed and follow up with counseling. Encouraged and recommended by provider. Confidence: 12/25 Date goal set: 12/02/19 Patient given educational materials below via AVS. Patient received counseling about current lifestyle goal. Patient was encouraged to take medications as prescribed. Discussed the importance of counseling. Discussed social support resources. Discussed potentially disabling symptoms of their anxiety/depression, which could potentially render them unable to function adequately. Provider Goal: To find the value of finding pleasure in daily living. Discussed how relationships, personal fulfillment, and optimism can work together to combat anxiety/depression. Patient given after visit summary which includes educational information- unable to provide due to virtual visit. Discussed use, benefit, and side effects of prescribed medications and barriers to medication compliance addressed, if applicable. All patient questions answered and patient voiced understanding. Patient was given a copy of this, and was advised to call if any questions. Clinical Notes 04-04-2021 to 10-01-2023 Telephone Encounter - Nehal Chao MA - 10/01/2023 3:40 PM EDTTelephone Encounter - Nehal Chao MA - 10/01/2023 3:40 PM EDTTelephone Encounter - Mariza Michael - 08/17/2023 12:34 PM EDT Note Date & Type Note Facility 10-01-2023 Telephone encounter Note Called patient, no answer. Left voicemail to call us back if would like to be scheduled for follow up to go over results. Patient established with Sudhakar. [facility] 10-01-2023 Miscellaneous Notes Called patient, no answer. Left voicemail to call us back if would like to be scheduled for follow up to go over results. Patient established with Sudhakar. Please assist with scheduling. VV appropriate.Thanks. Name of caller: Savi Contact phone number: [phone] Relationship to Patient: patient Provider: Dr. Agrawal Practice: [facility] Chief Complaint/Reason for Call: Pt states she had a EGD on 08/03 and would like to schedule a follow up appointment to discuss the results. Pt states she would like to be seen sooner than later. Please advise. Best time of day caller can be reached: any Patient advised that office/PCP has 24-48 business hours to return their call: Yes documented in this encounter [facility] 08-17-2023 Telephone encounter Note Please assist with scheduling. VV appropriate.Thanks. [facility] [employer] Work Phone: 08-17-2023 Miscellaneous Notes Please assist with scheduling. VV appropriate.Thanks. Name of caller: Savi Contact phone number: [phone] Relationship to Patient: patient Provider: Dr. Agrawal Practice: [facility] Chief Complaint/Reason for Call: Pt states she had a EGD on 08/03 and would like to schedule a follow up appointment to discuss the results. Pt states she would like to be seen sooner than later. Please advise. Best time of day caller can be reached: any Patient advised that office/PCP has 24-48 business hours to return their call: Yes documented in this encounter [facility] 08-17-2023 Telephone encounter Note Name of caller: Savi Contact phone number: [phone] Relationship to Patient: patient Provider: Dr. Agrawal Practice: [facility] Chief Complaint/Reason for Call: Pt states she had a EGD on 08/03 and would like to schedule a follow up appointment to discuss the results. Pt states she would like to be seen sooner than later. Please advise. Best time of day caller can be reached: any Patient advised that office/PCP has 24-48 business hours to return their call: Yes [facility] 08-04-2023 Note Patient: Savi Vasquez Procedure Summary Date: 08/04/23 Room / Location: [facility] / [facility] G[facility] Anesthesia Start: 1005 Anesthesia Stop: 1023 Procedure: Esophagogastroduodenoscopy With Possible Biopsy/ Coagulation/ Electrocautery/ Endotracheal Intubation/ Anesthesia Diagnosis: Generalized abdominal pain Abdominal distension (gaseous) Nausea Gastro-esophageal reflux disease without esophagitis Fatty (change of) liver, not elsewhere classified Benign neoplasm of extrahepatic bile ducts (Generalized abdominal pain [R10.84]) (Abdominal distension (gaseous) [R14.0]) (Nausea [R11.0]) (Gastro-esophageal reflux disease without esophagitis [K21.9]) (Fatty (change of) liver, not elsewhere classified [K76.0]) (Benign neoplasm of extrahepatic bile ducts [D13.5]) Providers: Kip Agrawal Responsible Provider: Dolly Anesthesiologist - MD Kassi Anesthesia Type: MAC ASA Status: 3 Anesthesia Type: MAC Vitals Value Taken Time BP 133/85 08/04/23 1040 Temp 36.3 ?C (97.4 ?F) 08/04/23 1022 Pulse 83 08/04/23 1040 Resp 18 08/04/23 1040 SpO2 96 % 08/04/23 1040 Anesthesia Post Evaluation Patient location during evaluation: PACU Patient participation: complete - patient participated Level of consciousness: awake and alert Pain management: satisfactory to patient Airway patency: patent Dental Injury: no Cardiovascular status: acceptable, blood pressure returned to baseline and hemodynamically stable Respiratory status: acceptable and spontaneous ventilation Hydration status: euvolemic Nausea/Vomiting: controlled No notable events documented. Patient can be discharged once all PACU criteria has been met. [facility] 08-04-2023 Note Patient: Savi Vasquez Procedure Summary Date: 08/04/23 Room / Location: [facility] / [facility] Gastroenterology Anesthesia Start: 1005 Anesthesia Stop: 1023 Procedure: Esophagogastroduodenoscopy With Possible Biopsy/ Coagulation/ Electrocautery/ Endotracheal Intubation/ Anesthesia Diagnosis: Generalized abdominal pain Abdominal distension (gaseous) Nausea Gastro-esophageal reflux disease without esophagitis Fatty (change of) liver, not elsewhere classified Benign neoplasm of extrahepatic bile ducts (Generalized abdominal pain [R10.84]) (Abdominal distension (gaseous) [R14.0]) (Nausea [R11.0]) (Gastro-esophageal reflux disease without esophagitis [K21.9]) (Fatty (change of) liver, not elsewhere classified [K76.0]) (Benign neoplasm of extrahepatic bile ducts [D13.5]) Providers: Kip Agrawal Responsible Provider: Dolly Anesthesiologist - MD Kassi Anesthesia Type: MAC ASA Status: 3 Anesthesia Type: MAC Vitals Value Taken Time BP 133/85 08/04/23 1040 Temp 36.3 ?C (97.4 ?F) 08/04/23 1022 Pulse 83 08/04/23 1040 Resp 18 08/04/23 1040 SpO2 96 % 08/04/23 1040 Anesthesia Post Evaluation Patient location during evaluation: PACU Patient participation: complete - patient participated Level of consciousness: awake and alert Pain score: 0 Pain management: satisfactory to patient Multimodal analgesia pain management approach Airway patency: patent Two or more strategies used to mitigate risk of obstructive sleep apnea Cardiovascular status: acceptable and hemodynamically stable Respiratory status: acceptable Hydration status: acceptable No notable events documented. MIPS #430 PONV Patient did not receive an inhalational anesthetic (XX430) MIPS # 424 Perioperative Temperature Management Anesthesia time was less than 60 minutes (4256F) MIPS #477 Multimodal Pain Management Not emergent case Patient was administered multimodal pain management (two or more drugs and/or interventions excluding systemic opioids) in the periopeartive period occurring at some time between 6 hours prior to anesthesia start time until discharged from PACU ([id number]) MIPS #404 Anesthesiology Smoking Abstinence The patient is not a current smoker (e.g. cigarette, cigar, pipe, e-cigarette/vaping/marijuana) If no stop here (XX404) I completed my handoff to the receiving clinician during which we: 1. Identified the patient 2. Identified the responsible provider 3. Reviewed the pertinent medical history 4. Discussed the surgical course 5. Reviewed intra-op anesthesia management and issues during anesthesia 6. Set expectations for post-procedure period 7. Allowed opportunity for questions and acknowledgement of understanding. [facility] 08-04-2023 Note Patient: Savi Vasquez Procedure Information Date/Time: 08/04/23 1030 Procedure: Esophagogastroduodenoscopy With Possible Biopsy/ Coagulation/ Electrocautery/ Endotracheal Intubation/ Anesthesia - EGD 30 min Location: [place] [address] / [facility] Gastroenterology Providers: Kip Agrawal Relevant Problems Cardio (+) Hyperlipidemia Neuro/Psych (+) Anxiety (+) Major depressive disorder with single episode, in remission (HCC) Past Medical History: Past Medical History: 01/22/2021: Abscessed tooth 12/02/2019: Anxiety 12/24/2017: Carpal tunnel syndrome of right wrist 01/25/2020: Class 1 obesity due to excess calories without serious comorbidity with body mass index (BMI) of 32.0 to 32.9 in adult 12/02/2019: Current moderate episode of major depressive disorder without prior episode (HCC) No date: Headache 01/02/2021: Hyperlipidemia No date: Smoker No date: UTI (urinary tract infection) Comment: H/O 05/27/2022: Viral URI with cough Past Surgical History: Past Surgical History: No date: COLONOSCOPY 2007: TOTAL VAGINAL HYSTERECTOMY Comment: bilateral ovaries remaining 1998: TUBAL LIGATION Social History: TOBACCO: reports that she has been smoking cigarettes. She started smoking about 23 years ago. She has been smoking an average of 0.3 packs per day. She has never used smokeless tobacco. ETOH: reports no history of alcohol use. Social History Substance and Sexual Activity Drug Use No Family History: Family History Problem Relation Name Age of Onset Heart disease Father Other (670[address]) Father Blood Clots Heart disease Brother Lung cancer Brother Breast cancer Father's Sister Early 40s Lung cancer Maternal Grandfather Colon cancer Maternal Grandfather Screening: Hysterectomy Clinical information reviewed: Tobacco Allergies Meds Problems Med Hx Surg Hx OB Status Fam Hx Soc Hx Physical Exam Airway Mallampati: II TM distance: >3 FB Neck ROM: full Mouth Open: normalendotracheal tube not in place Cardiovascular Dental (+) chipped Comments: Two broken teeth upper on both sides Pulmonary Abdominal Anesthesia Plan patient is NPO appropriate Any family history or previous problems with anesthesia no ASA 3 MAC Any family history or previous problems with anesthesia no The patient is a current smoker. Patient was previously instructed to abstain from smoking on day of procedure. Patient did not smoke on day of procedure. Anesthetic plan and risks discussed with patient. ИРИНА Screening Labs: Lab Results Component Value Date WBC 8.3 03/13/2023 HGB 13.4 03/13/2023 HCT 40.3 03/13/2023 MCV 92.6 03/13/2023 PLT 237 03/13/2023 Lab Results Component Value Date NA 141 04/04/2021 K 4.0 04/04/2021 CL 111 (H) 04/04/2021 CO2 26 03/13/2023 BUN 9 03/13/2023 CREATININE 0.70 03/13/2023 GLUCOSE 98 03/13/2023 CALCIUM 9.0 03/13/2023 PROT 6.6 03/13/2023 ALKPHOS 77 03/13/2023 AST 18 03/13/2023 ALT 11 03/13/2023 EGFR 103 03/13/2023 GLOB 2.6 03/13/2023 No echocardiogram results found for the past 14 days 04/04/21 (Final) Narrative Ordered by an unspecified provider. [facility] 08-04-2023 Note GASTROENTEROLOGY PHY SICIAN PRE PROCEDURE NOTE HPI: Savi Vasquez is a 53 y.o. female who is here today for planned endoscopic examination. All: Allergies Allergen Reactions Penicillins Meds: No current facility-administered medications on file prior to encounter. Current Outpatient Medications on File Prior to Encounter Medication Sig Dispense Refill famotidine (Pepcid) 20 MG tablet Take 20 mg by mouth Daily as needed for heartburn. omeprazole (PriLOSEC) [address] capsule Take 1 capsule (20 mg) by mouth daily. Do not crush or chew. (Patient not taking: Reported on 06/11/2023) 30 capsule 2 Tirzepatide (Mounjaro) 2.5 MG/0.5ML solution pen-injector Inject 2.5 mg under the skin 1 (one) time per week. (Patient not taking: Reported on 06/11/2023) 2 mL 0 PMH: Past Medical History: Diagnosis Date Abscessed tooth 01/22/2021 Anxiety 12/02/2019 Carpal tunnel syndrome of right wrist 12/24/2017 Class 1 obesity due to excess calories without serious comorbidity with body mass index (BMI) of 32.0 to 32.9 in adult 01/25/2020 Current moderate episode of major depressive disorder without prior episode (HCC) 12/02/2019 Headache Hyperlipidemia 01/02/2021 Smoker UTI (urinary tract infection) H/O Viral URI with cough 05/27/2022 No reactions to anesthesia in the past. Airway patent PE: VS: BP (!) 156/70 (BP Location: Left arm, Patient Position: Sitting) Pulse 99 Temp 37.7 ?C (99.8 ?F) (Temporal) Resp 18 Ht 5' 6 (1.676 m) Wt 210 lb (95.3 kg) SpO2 95% BMI 33.89 kg/m? Body mass index is 33.89 kg/m?. General: Patient in no distress CVS: Regular rate & rhythm Respiratory: Clear to auscultation Abdomen: soft and non tender ASA score : 3 ASSESSMENT & PLAN: Risks & benefits of the endoscopic procedure(s) and MAC /GA sedation were personally explained to patient / family along with alternatives to the procedure in detail including radiological and surgical options. The risks of the endoscopic procedure include but are not limited to risk from anesthesia, respiratory failure, infection, bleeding, perforation, pancreatitis with its sequelae , damage to the adjacent organs, missed lesions and need for further procedure, surgery or interventional radiological intervention, from procedure or complications. We made a shared decision to proceed with planned procedure [x]EGD []Colonoscopy []EGD&Colonoscopy Kip Agrawal MD Gastroenterology [facility] 08-04-[address] Agrawal at bedside to give pt update. Sister at bedside. Questions answered. Ambulates to restroom after discharge instructions discussed. She is provided with scrub pants and items for christel care-her pants are wet. Gait is steady. Denies complaints. States she is ready to go home. Received pt from gi lab sleeping on room air. Belongings retrieved from locker. No visitor in lobby-Dr Agrawal is made aware. History and allergies reviewed[facility] Savi [facility] Procedure Date: 08/04/2023 7:42 AM Gender: Female Date of : 1970 Age: 53 Admit Type: Outpatient Note Status: Finalized Endoscopist: Kip Agrawal , , [id number] Procedure: Upper GI endoscopy Indications: Epigastric abdominal pain, Abdominal bloating Findings: The Z-line was irregular. A 2 cm hiatal hernia was present. Four localized 1 to 2 mm erosions with no bleeding and no stigmata of recent bleeding were found in the gastric antrum. Biopsies were taken with a cold forceps for histology. Biopsies were taken with a cold forceps for Helicobacter pylori testing. The exam was otherwise without abnormality. The first portion of the duodenum, second portion of the duodenum and third portion of the duodenum were normal. Biopsies were taken with a cold forceps for histology. Biopsies for histology were taken with a cold forceps for evaluation of celiac disease. Impression: - Z-line irregular. - 2 cm hiatal hernia. - Erosive gastropathy with no bleeding and no stigmata of recent bleeding. Biopsied. - The examination was otherwise normal. - Normal first portion of the duodenum, second portion of the duodenum and third portion of the duodenum. Biopsied. Recommendation: - Patient has a contact number available for emergencies. The signs and symptoms of potential delayed complications were discussed with the patient. Return to normal activities tomorrow. Written discharge instructions were provided to the patient. - Await pathology results. - No aspirin, ibuprofen, naproxen, or other non-steroidal anti-inflammatory drugs. - Continue present medications. Continue PPI - Resume previous diet. - Return to referring physician as previously scheduled. Referring MD: Efraín Pulido NP CC Letter to: PCP Medicines: Monitored Anesthesia Care Procedure: Pre-Anesthesia Assessment: - Prior to the procedure, a History and Physical was performed, and patient medications and allergies were reviewed. The patient is competent. The risks and benefits of the procedure and the sedation options and risks were discussed with the patient. All questions were answered and informed consent was obtained. Patient identification and proposed procedure were verified by the physician, the nurse and the table games shift manager in the pre-procedure area in the procedure room in the endoscopy suite. Mental Status Examination: normal. Airway Examination: normal oropharyngeal airway and neck mobility. Respiratory Examination: clear to auscultation. CV Examination: normal. Prophylactic Antibiotics: The patient does not require prophylactic antibiotics. Prior Anticoagulants: The patient has taken no anticoagulant or antiplatelet agents. ASA Grade Assessment: III - A patient with severe systemic disease. After reviewing the risks and benefits, the patient was deemed in satisfactory condition to undergo the procedure. The anesthesia plan was to use monitored anesthesia care (MAC). Immediately prior to administration of medications, the patient was re-assessed for adequacy to receive sedatives. The heart rate, respiratory rate, oxygen saturations, blood pressure, adequacy of pulmonary ventilation, and response to care were monitored throughout the procedure. The physical status of the patient was re-assessed after the procedure. After obtaining informed consent, the endoscope was passed under direct vision. Throughout the procedure, the patient's blood pressure, pulse, and oxygen saturations were monitored continuously. The Endoscope was introduced through the mouth, and advanced to the third part of duodenum. The upper GI endoscopy was accomplished with ease. The patient tolerated the procedure well. Complications: No immediate complications. Estimated blood loss: None. Procedure Code(s): --- Professional --- 10441, Esophagogastroduodenoscopy, flexible, transoral; with biopsy, single or multiple --- Technical --- 28188, Esophagogastroduodenoscopy, flexible, transoral; with biopsy, single or multiple Diagnosis Code(s): --- Professional --- K22.89, Other specified disease of esophagus K44.9, Diaphragmatic hernia without obstruction or gangrene K31.89, Other diseases of stomach and duodenum R10.13, Epigastric pain R14.0, Abdominal distension (gaseous) --- Technical --- K22.89, Other specified disease of esophagus K44.9, Diaphragmatic hernia without obstruction or gangrene K31.89, Other diseases of stomach and duodenum R10.13, Epigastric pain R14.0, Abdominal distension (gaseous) CPT copyright 2021 [employer]. All rights reserved. The codes documented in this report are preliminary and upon data coder operator review may be revised to meet current compliance requirements. Attending Participation: I personally performed the entire procedure. Kip Agrawal, 08/04/2023 10:20:41 AM This report has been signed electronically. Number of Addenda: 0 Note Initiated On: 08/04/2023 7:42 AM documented in this encounter [facility] 08-04-2023 Note Formatting of this n ote might be different from the original. Dr Agrawal at bedside to give pt update. Sister at bedside. Questions answered. [facility] 08-04-2023 Note Formatting of this n ote might be different from the original. Dr Agrawal at bedside to give pt update. Sister at bedside. Questions answered. [facility] 08-04-2023 Note Formatting of this n ote might be different from the original. Ambulates to restroom after discharge instructions discussed. She is provided with scrub pants and items for christle care-her pants are wet. Gait is steady. Denies complaints. States she is ready to go home. [facility] 08-04-2023 Note Formatting of this n ote might be different from the original. Ambulates to restroom after discharge instructions discussed. She is provided with scrub pants and items for christel care-her pants are wet. Gait is steady. Denies complaints. States she is ready to go home. [facility] 08-04-2023 Note Formatting of this n ote might be different from the original. Received pt from gi lab sleeping on room air. Belongings retrieved from locker. No visitor in [place] Agrawal is made aware. History and allergies reviewed. [facility] 08-04-2023 Note Formatting of this n ote might be different from the original. Received pt from gi lab sleeping on room air. Belongings retrieved from locker. No visitor in [place] Agrawal is made aware. History and allergies reviewed. [facility] 08-04-2023 History and physical note GASTROENTEROLOGY PHYSICIAN PRE PROCEDURE NOTE HPI: Savi Vasquez is a 53 y.o. female who is here today for planned endoscopic examination. All: Allergies Allergen Reactions Penicillins Meds: No current facility-administered medications on file prior to encounter. Current Outpatient Medications on File Prior to Encounter Medication Sig Dispense Refill famotidine (Pepcid) 20 MG tablet Take 20 mg by mouth Daily as needed for heartburn. omeprazole (PriLOSEC) [address] capsule Take 1 capsule (20 mg) by mouth daily. Do not crush or chew. (Patient not taking: Reported on 06/11/2023) 30 capsule 2 Tirzepatide (Mounjaro) 2.5 MG/0.5ML solution pen-injector Inject 2.5 mg under the skin 1 (one) time per week. (Patient not taking: Reported on 06/11/2023) 2 mL 0 PMH: Past Medical History: Diagnosis Date Abscessed tooth 01/22/2021 Anxiety 12/02/2019 Carpal tunnel syndrome of right wrist 12/24/2017 Class 1 obesity due to excess calories without serious comorbidity with body mass index (BMI) of 32.0 to 32.9 in adult 01/25/2020 Current moderate episode of major depressive disorder without prior episode (HCC) 12/02/2019 Headache Hyperlipidemia 01/02/2021 Smoker UTI (urinary tract infection) H/O Viral URI with cough 05/27/2022 No reactions to anesthesia in the past. Airway patent PE: VS: BP (!) 156/70 (BP Location: Left arm, Patient Position: Sitting) Pulse 99 Temp 37.7 C (99.8 F) (Temporal) Resp 18 Ht 5' 6 (1.676 m) Wt 210 lb (95.3 kg) SpO2 95% BMI 33.89 kg/m Body mass index is 33.89 kg/m . General: Patient in no distress CVS: Regular rate & rhythm Respiratory: Clear to auscultation Abdomen: soft and non tender ASA score : 3 ASSESSMENT & PLAN: Risks & benefits of the endoscopic procedure(s) and MAC /GA sedation were personally explained to patient / family along with alternatives to the procedure in detail including radiological and surgical options. The risks of the endoscopic procedure include but are not limited to risk from anesthesia, respiratory failure, infection, bleeding, perforation, pancreatitis with its sequelae , damage to the adjacent organs, missed lesions and need for further procedure, surgery or interventional radiological intervention, from procedure or complications. We made a shared decision to proceed with planned procedure [x]EGD []Colonoscopy []EGD&Colonoscopy Kip Agrawal MD Gastroenterology [employer] Phone: 08-04-2023 History and physical note GASTROENTEROLOGY PHYSICIAN PRE PROCEDURE NOTE HPI: Savi Vasquez is a 53 y.o. female who is here today for planned endoscopic examination. All: Allergies Allergen Reactions Penicillins Meds: No current facility-administered medications on file prior to encounter. Current Outpatient Medications on File Prior to Encounter Medication Sig Dispense Refill famotidine (Pepcid) 20 MG tablet Take 20 mg by mouth Daily as needed for heartburn. omeprazole (PriLOSEC) [address] capsule Take 1 capsule (20 mg) by mouth daily. Do not crush or chew. (Patient not taking: Reported on 06/11/2023) 30 capsule 2 Tirzepatide (Mounjaro) 2.5 MG/0.5ML solution pen-injector Inject 2.5 mg under the skin 1 (one) time per week. (Patient not taking: Reported on 06/11/2023) 2 mL 0 PMH: Past Medical History: Diagnosis Date Abscessed tooth 01/22/2021 Anxiety 12/02/2019 Carpal tunnel syndrome of right wrist 12/24/2017 Class 1 obesity due to excess calories without serious comorbidity with body mass index (BMI) of 32.0 to 32.9 in adult 01/25/2020 Current moderate episode of major depressive disorder without prior episode (HCC) 12/02/2019 Headache Hyperlipidemia 01/02/2021 Smoker UTI (urinary tract infection) H/O Viral URI with cough 05/27/2022 No reactions to anesthesia in the past. Airway patent PE: VS: BP (!) 156/70 (BP Location: Left arm, Patient Position: Sitting) Pulse 99 Temp 37.7 C (99.8 F) (Temporal) Resp 18 Ht 5' 6 (1.676 m) Wt 210 lb (95.3 kg) SpO2 95% BMI 33.89 kg/m Body mass index is 33.89 kg/m . General: Patient in no distress CVS: Regular rate & rhythm Respiratory: Clear to auscultation Abdomen: soft and non tender ASA score : 3 ASSESSMENT & PLAN: Risks & benefits of the endoscopic procedure(s) and MAC /GA sedation were personally explained to patient / family along with alternatives to the procedure in detail including radiological and surgical options. The risks of the endoscopic procedure include but are not limited to risk from anesthesia, respiratory failure, infection, bleeding, perforation, pancreatitis with its sequelae , damage to the adjacent organs, missed lesions and need for further procedure, surgery or interventional radiological intervention, from procedure or complications. We made a shared decision to proceed with planned procedure [x]EGD []Colonoscopy []EGD&Colonoscopy Kip Agrawal MD Gastroenterology documented in this encounter [facility] 08-04-2023 Note Endoscopy Center- [facility] Patient Name: Savi Vasquez Procedure Date: 08/04/2023 7:42 AM Gender: Female Date of : 1970 Age: 53 Admit Type: Outpatient Note Status: Finalized Endoscopist: Kip Agrawal , , [id number] Procedure: Upper GI endoscopy Indications: Epigastric abdominal pain, Abdominal bloating Findings: The Z-line was irregular. A 2 cm hiatal hernia was present. Four localized 1 to 2 mm erosions with no bleeding and no stigmata of recent bleeding were found in the gastric antrum. Biopsies were taken with a cold forceps for histology. Biopsies were taken with a cold forceps for Helicobacter pylori testing. The exam was otherwise without abnormality. The first portion of the duodenum, second portion of the duodenum and third portion of the duodenum were normal. Biopsies were taken with a cold forceps for histology. Biopsies for histology were taken with a cold forceps for evaluation of celiac disease. Impression: - Z-line irregular. - 2 cm hiatal hernia. - Erosive gastropathy with no bleeding and no stigmata of recent bleeding. Biopsied. - The examination was otherwise normal. - Normal first portion of the duodenum, second portion of the duodenum and third portion of the duodenum. Biopsied. Recommendation: - Patient has a contact number available for emergencies. The signs and symptoms of potential delayed complications were discussed with the patient. Return to normal activities tomorrow. Written discharge instructions were provided to the patient. - Await pathology results. - No aspirin, ibuprofen, naproxen, or other non-steroidal anti-inflammatory drugs. - Continue present medications. Continue PPI - Resume previous diet. - Return to referring physician as previously scheduled. Referring MD: Efraín Pulido NP CC Letter to: PCP Medicines: Monitored Anesthesia Care Procedure: Pre-Anesthesia Assessment: - Prior to the procedure, a History and Physical was performed, and patient medications and allergies were reviewed. The patient is competent. The risks and benefits of the procedure and the sedation options and risks were discussed with the patient. All questions were answered and informed consent was obtained. Patient identification and proposed procedure were verified by the physician, the nurse and the table games shift manager in the pre-procedure area in the procedure room in the endoscopy suite. Mental Status Examination: normal. Airway Examination: normal oropharyngeal airway and neck mobility. Respiratory Examination: clear to auscultation. CV Examination: normal. Prophylactic Antibiotics: The patient does not require prophylactic antibiotics. Prior Anticoagulants: The patient has taken no anticoagulant or antiplatelet agents. ASA Grade Assessment: III - A patient with severe systemic disease. After reviewing the risks and benefits, the patient was deemed in satisfactory condition to undergo the procedure. The anesthesia plan was to use monitored anesthesia care (MAC). Immediately prior to administration of medications, the patient was re-assessed for adequacy to receive sedatives. The heart rate, respiratory rate, oxygen saturations, blood pressure, adequacy of pulmonary ventilation, and response to care were monitored throughout the procedure. The physical status of the patient was re-assessed after the procedure. After obtaining informed consent, the endoscope was passed under direct vision. Throughout the procedure, the patient's blood pressure, pulse, and oxygen saturations were monitored continuously. The Endoscope was introduced through the mouth, and advanced to the third part of duodenum. The upper GI endoscopy was accomplished with ease. The patient tolerated the procedure well. Complications: No immediate complications. Estimated blood loss: None. Procedure Code(s): --- Professional --- 48561, Esophagogastroduodenoscopy, flexible, transoral; with biopsy, single or multiple --- Technical --- 23767, Esophagogastroduodenoscopy, flexible, transoral; with biopsy, single or multiple Diagnosis Code(s): --- Professional --- K22.89, Other specified disease of esophagus K44.9, Diaphragmatic hernia without obstruction or gangrene K31.89, Other diseases of stomach and duodenum R10.13, Epigastric pain R14.0, Abdominal distension (gaseous) --- Technical --- K22.89, Other specified disease of esophagus K44.9, Diaphragmatic hernia without obstruction or gangrene K31.89, Other diseases of stomach and duodenum R10.13, Epigastric pain R14.0, Abdominal distension (gaseous) CPT copyright 2021 [employer]. All rights reserved. The codes documented in this report are preliminary and upon data coder operator review may be revised to meet current compliance requirements. Attending Participation: I personally performed the entire procedure. Kip Agrawal, (more content not included)... [facility] 08-04-2023 Note Formatting of this n ote might be different from the original. [facility]: Savi [facility] Procedure Date: 08/04/2023 7:42 AM Gender: Female Date of : 1970 Age: 53 Admit Type: Outpatient Note Status: Finalized Endoscopist: Kip Agrawal , , [id number] Procedure: Upper GI endoscopy Indications: Epigastric abdominal pain, Abdominal bloating Findings: The Z-line was irregular. A 2 cm hiatal hernia was present. Four localized 1 to 2 mm erosions with no bleeding and no stigmata of recent bleeding were found in the gastric antrum. Biopsies were taken with a cold forceps for histology. Biopsies were taken with a cold forceps for Helicobacter pylori testing. The exam was otherwise without abnormality. The first portion of the duodenum, second portion of the duodenum and third portion of the duodenum were normal. Biopsies were taken with a cold forceps for histology. Biopsies for histology were taken with a cold forceps for evaluation of celiac disease. Impression: - Z-line irregular. - 2 cm hiatal hernia. - Erosive gastropathy with no bleeding and no stigmata of recent bleeding. Biopsied. - The examination was otherwise normal. - Normal first portion of the duodenum, second portion of the duodenum and third portion of the duodenum. Biopsied. Recommendation: - Patient has a contact number available for emergencies. The signs and symptoms of potential delayed complications were discussed with the patient. Return to normal activities tomorrow. Written discharge instructions were provided to the patient. - Await pathology results. - No aspirin, ibuprofen, naproxen, or other non-steroidal anti-inflammatory drugs. - Continue present medications. Continue PPI - Resume previous diet. - Return to referring physician as previously scheduled. Referring MD: Efraín Pulido NP CC Letter to: PCP Medicines: Monitored Anesthesia Care Procedure: Pre-Anesthesia Assessment: - Prior to the procedure, a History and Physical was performed, and patient medications and allergies were reviewed. The patient is competent. The risks and benefits of the procedure and the sedation options and risks were discussed with the patient. All questions were answered and informed consent was obtained. Patient identification and proposed procedure were verified by the physician, the nurse and the table games shift manager in the pre-procedure area in the procedure room in the endoscopy suite. Mental Status Examination: normal. Airway Examination: normal oropharyngeal airway and neck mobility. Respiratory Examination: clear to auscultation. CV Examination: normal. Prophylactic Antibiotics: The patient does not require prophylactic antibiotics. Prior Anticoagulants: The patient has taken no anticoagulant or antiplatelet agents. ASA Grade Assessment: III - A patient with severe systemic disease. After reviewing the risks and benefits, the patient was deemed in satisfactory condition to undergo the procedure. The anesthesia plan was to use monitored anesthesia care (MAC). Immediately prior to administration of medications, the patient was re-assessed for adequacy to receive sedatives. The heart rate, respiratory rate, oxygen saturations, blood pressure, adequacy of pulmonary ventilation, and response to care were monitored throughout the procedure. The physical status of the patient was re-assessed after the procedure. After obtaining informed consent, the endoscope was passed under direct vision. Throughout the procedure, the patient's blood pressure, pulse, and oxygen saturations were monitored continuously. The Endoscope was introduced through the mouth, and advanced to the third part of duodenum. The upper GI endoscopy was accomplished with ease. The patient tolerated the procedure well. Complications: No immediate complications. Estimated blood loss: None. Procedure Code(s): --- Professional --- 98593, Esophagogastroduodenoscopy, flexible, transoral; with biopsy, single or multiple --- Technical --- 07207, Esophagogastroduodenoscopy, flexible, transoral; with biopsy, single or multiple Diagnosis Code(s): --- Professional --- K22.89, Other specified disease of esophagus K44.9, Diaphragmatic hernia without obstruction or gangrene K31.89, Other diseases of stomach and duodenum R10.13, Epigastric pain R14.0, Abdominal distension (gaseous) --- Technical --- K22.89, Other specified disease of esophagus K44.9, Diaphragmatic hernia without obstruction or gangrene K31.89, Other diseases of stomach and duodenum R10.13, Epigastric pain R14.0, Abdominal distension (gaseous) CPT copyright 2021 [employer]. All rights reserved. The codes documented in this report are preliminary and upon data coder operator review may be revised to meet current compliance requirements. Attending Participation: I personally performed the entire procedure. Kip Agrawal, 08/04/2023 10:20:41 AM This report has been signed electronically. Number of Addenda: 0 Note Initiated On: 08/04/2023 7:42 AM [facility] 08-04-2023 Note Formatting of this n ote might be different from the original. [facility] Name: Savi Vasquez Procedure Date: 08/04/2023 7:42 AM Gender: Female Date of : 1970 Age: 53 Admit Type: Outpatient Note Status: Finalized Endoscopist: Kip Agrawal , , [id number] Procedure: Upper GI endoscopy Indications: Epigastric abdominal pain, Abdominal bloating Findings: The Z-line was irregular. A 2 cm hiatal hernia was present. Four localized 1 to 2 mm erosions with no bleeding and no stigmata of recent bleeding were found in the gastric antrum. Biopsies were taken with a cold forceps for histology. Biopsies were taken with a cold forceps for Helicobacter pylori testing. The exam was otherwise without abnormality. The first portion of the duodenum, second portion of the duodenum and third portion of the duodenum were normal. Biopsies were taken with a cold forceps for histology. Biopsies for histology were taken with a cold forceps for evaluation of celiac disease. Impression: - Z-line irregular. - 2 cm hiatal hernia. - Erosive gastropathy with no bleeding and no stigmata of recent bleeding. Biopsied. - The examination was otherwise normal. - Normal first portion of the duodenum, second portion of the duodenum and third portion of the duodenum. Biopsied. Recommendation: - Patient has a contact number available for emergencies. The signs and symptoms of potential delayed complications were discussed with the patient. Return to normal activities tomorrow. Written discharge instructions were provided to the patient. - Await pathology results. - No aspirin, ibuprofen, naproxen, or other non-steroidal anti-inflammatory drugs. - Continue present medications. Continue PPI - Resume previous diet. - Return to referring physician as previously scheduled. Referring MD: Efraín Pulido NP CC Letter to: PCP Medicines: Monitored Anesthesia Care Procedure: Pre-Anesthesia Assessment: - Prior to the procedure, a History and Physical was performed, and patient medications and allergies were reviewed. The patient is competent. The risks and benefits of the procedure and the sedation options and risks were discussed with the patient. All questions were answered and informed consent was obtained. Patient identification and proposed procedure were verified by the physician, the nurse and the table games shift manager in the pre-procedure area in the procedure room in the endoscopy suite. Mental Status Examination: normal. Airway Examination: normal oropharyngeal airway and neck mobility. Respiratory Examination: clear to auscultation. CV Examination: normal. Prophylactic Antibiotics: The patient does not require prophylactic antibiotics. Prior Anticoagulants: The patient has taken no anticoagulant or antiplatelet agents. ASA Grade Assessment: III - A patient with severe systemic disease. After reviewing the risks and benefits, the patient was deemed in satisfactory condition to undergo the procedure. The anesthesia plan was to use monitored anesthesia care (MAC). Immediately prior to administration of medications, the patient was re-assessed for adequacy to receive sedatives. The heart rate, respiratory rate, oxygen saturations, blood pressure, adequacy of pulmonary ventilation, and response to care were monitored throughout the procedure. The physical status of the patient was re-assessed after the procedure. After obtaining informed consent, the endoscope was passed under direct vision. Throughout the procedure, the patient's blood pressure, pulse, and oxygen saturations were monitored continuously. The Endoscope was introduced through the mouth, and advanced to the third part of duodenum. The upper GI endoscopy was accomplished with ease. The patient tolerated the procedure well. Complications: No immediate complications. Estimated blood loss: None. Procedure Code(s): --- Professional --- 18814, Esophagogastroduodenoscopy, flexible, transoral; with biopsy, single or multiple --- Technical --- 78712, Esophagogastroduodenoscopy, flexible, transoral; with biopsy, single or multiple Diagnosis Code(s): --- Professional --- K22.89, Other specified disease of esophagus K44.9, Diaphragmatic hernia without obstruction or gangrene K31.89, Other diseases of stomach and duodenum R10.13, Epigastric pain R14.0, Abdominal distension (gaseous) --- Technical --- K22.89, Other specified disease of esophagus K44.9, Diaphragmatic hernia without obstruction or gangrene K31.89, Other diseases of stomach and duodenum R10.13, Epigastric pain R14.0, Abdominal distension (gaseous) CPT copyright 2021 [employer]. All rights reserved. The codes documented in this report are preliminary and upon data coder operator review may be revised to meet current compliance requirements. Attending Participation: I personally performed the entire procedure. Kip Agrawal, 08/04/2023 10:20:41 AM This report has been signed electronically. Number of Addenda: 0 Note Initiated On: 08/04/2023 7:42 AM [facility] 07-07-2023 Note Patient Education Sinusitis Discharge Instructions, Adult About this topic Your sinuses are hollow areas in the bones of your face. They have a thin lining that normally makes a small amount of mucus. When you have sinusitis, the lining gets swollen and makes extra mucus. You may have sinusitis with or after a cold. Most of the time sinusitis will get better in 1 to 2 weeks. Sinusitis is most often caused by a virus, so antibiotics won?t help. But some people do need antibiotics. If the doctor ordered antibiotics for you, be sure to follow the instructions. It is important to take all of your antibiotics even if you start to feel better. What care is needed at home? Ask your doctor what you need to do when you go home. Make sure you ask questions if you do not understand what you need to do. Try to thin the mucus. Drink lots of liquids to stay hydrated. Use a cool mist humidifier to avoid dry air. Use saline nose drops or a saline nose rinse to relieve stuffiness. Wash your hands often. This will help keep others healthy. Do not smoke or be in smoke-filled places. Avoid things that may cause breathing problems like fumes, pollution, dust, and other common allergens and irritants. You may want to take medicine like ibuprofen, naproxen, or acetaminophen to help with pain. What follow-up care is needed? Your doctor may ask you to make visits to the office to check on your progress. Be sure to keep your visits. Your doctor will tell you if other tests are needed. Your doctor may send you for allergy tests or to an allergy expert. What lifestyle changes are needed? Avoid drinks that contain caffeine or alcohol. Try to stop smoking. Avoid being around others who smoke. Smoke can damage the small hairs inside your sinuses. What drugs may be needed? The doctor may order drugs to: Help with pain and swelling Fight an infection Control coughing Dry up the sinuses Help a runny or stuffy nose Will physical activity be limited? You do not have to limit your activity. You may want to rest more if you have a fever or headache. What problems could happen? Infections that happen again and again Asthma attack Coughing Loss of voice What can be done to prevent this health problem? Keep your nose as moist as possible. Use saline sprays, washes, and a humidifier often. Avoid being around cigarette and cigar smoke or strong odors from chemicals. Avoid long periods of swimming in pools treated with chlorine. This can bother the lining of the nose and sinuses. Avoid water diving. This forces water into the sinuses from the nasal passages. Manage your allergies with your doctor's help. Use an air conditioner if allergies are a problem. Before air travel, use a drug to dry up mucus. As the plane takes off or lands, the pressure can cause sinus pain. When do I need to call the doctor? You have a stiff neck, especially if you also have fever, chills, vomiting, or severe headache You have trouble thinking clearly. You have trouble seeing or have double vision. You have swelling or redness or pain around one or both eyes. You have a fever of 102?F (38.9?C) or higher, or have shaking chills or sweats. You have an upset stomach and throwing up. You have more pain in your face and head. You are not getting better within 1 to 2 weeks. Teach Back: Helping You Understand The Teach Back Method helps you understand the information we are giving you. After you talk with the staff, tell them in your own words what you learned. This helps to make sure the staff has covered each thing clearly. It also helps to explain things that may have been confusing. Before going home, make sure you can do these: I can tell you about my condition. I can tell you what may help ease my breathing. I can tell you what I will do if I have a fever, chills, or trouble breathing. Where can I learn more? [employer] https://familydoctor.org/condition/sinu sitis/ Centers for Disease Control and Prevention https://www.cdc.gov/antibiotic-use/comm unity/for-hcp/outpatient-hcp/adult-red tm ent-rec.html Last Reviewed Date 2020-10-24 Consumer Information Use and Disclaimer This generalized information is a limited summary of diagnosis, treatment, and/or medication information. It is not meant to be comprehensive and should be used as a tool to help the user understand and/or assess potential diagnostic and treatment options. It does NOT include all information about conditions, treatments, medications, side effects, or risks that may apply to a specific patient. It is not intended to be medical advice or a substitute for the medical advice, diagnosis, or treatment of a health care provider based on the health care provider's examination and assessment of a patient?s specific and unique circumstances. Patients must speak with a health care provider for complete inform (more content not included)... [facility] 07-07-2023 Evaluation + Plan note Associated Problem(s): Acute non-recurrent frontal sinusitis Will treat with antibiotics for bacterial sinusitis due to severity of symptoms and length of illness >7 days, not improving. [facility] 07-07-2023 Miscellaneous Notes Associated Problem(s): Acute non-recurrent frontal sinusitis Will treat with antibiotics for bacterial sinusitis due to severity of symptoms and length of illness >7 days, not improving. documented in this encounter [facility] 07-07-2023 History of Present illness Narrative Patient was identified by name and Date of . Images from the original note were not included. 07/07/2023 Savi Vasquez (: 1970) is a 53 y.o. female , Established patient, here for evaluation of the following chief complaint(s): Cough, Nasal Congestion, Sore Throat, and Earache (left) ASSESSMENT/PLAN: 1. Acute non-recurrent frontal sinusitis Assessment & Plan: Will treat with antibiotics for bacterial sinusitis due to severity of symptoms and length of illness >7 days, not improving. Orders: - doxycycline (Vibramycin) 100 MG capsule; Take 1 capsule (100 mg) by mouth 2 times daily for 7 days. Take with at least 8 ounces (large glass) of water, do not lie down for 30 minutes after, Starting Thu07/07/2023, Until Thu07/14/2023, Normal - ipratropium (Atrovent) 0.06 % nasal spray; Administer 2 sprays into each nostril 3 times daily for 7 days., Starting Thu07/07/2023, Until Thu07/14/2023, Normal 2. Acute cough - tymkqmqbyjfqlwy-jloancpzfivgvlt-NW 30-2-10 MG/5ML syrup; Take 5 mL by mouth 3 times daily as needed for allergies for up to 10 days., Starting Thu07/07/2023, Until Thu07/17/2023 at 2359, Normal Reviewed and provided written patient education/instructions regarding diagnosis and management. Reviewed symptom management with non-pharmacological interventions and appropriate use of otc medications for relief of symptoms. Follow up for worsening or no improvement in symptoms. Follow up if symptoms worsen or fail to improve. SUBJECTIVE/OBJECTIVE: HPI - Savi Vasquez (: 1970) is a 53 y.o. female , Established patient, here for the evaluation of the following chief complaint(s): Cough, Nasal Congestion, Sore Throat, and Earache (left) X 2 weeks worsening, lots of drainage. Sinus pressure, headache. No fever or chills, low grade today. Feels hotter at bedtime. Left ear bothering her. No drainage. Feels full. Robitussin, sudafed and dayquil. Mild nausea and vomiting. Did initially have n/v/d. That has resolved. Mild nausea. Appetite decreased. Prior to Admission medications Medication Sig Start Date End Date Taking? Authorizing Provider famotidine (Pepcid) 20 MG tablet Take 20 mg by mouth Daily as needed for heartburn. Historical Provider, omeprazole (PriLOSEC) [address] capsule Take 1 capsule (20 mg) by mouth daily. Do not crush or chew. Patient not taking: Reported on 06/11/2023 03/13/23 PAUL Ruiz CNP Tirzepatide (Mounjaro) 2.5 MG/0.5ML solution pen-injector Inject 2.5 mg under the skin 1 (one) time per week. Patient not taking: Reported on 06/11/2023 04/20/23 PAUL Ruiz CNP Review of Systems Constitutional: Negative for chills, fatigue and fever. HENT: Positive for congestion, postnasal drip, sinus pressure and sinus pain. Negative for sore throat and trouble swallowing. Respiratory: Positive for cough. Negative for shortness of breath. Cardiovascular: Negative for chest pain. Gastrointestinal: Negative. Neurological: Positive for headaches. Vitals: 07/07/23 1256 BP: 137/83 Pulse: 87 Resp: 20 Temp: 37.8 C (100 F) TempSrc: Infrared SpO2: 97% Weight: 215 lb (97.5 kg) Physical Exam Constitutional: General: She is not in acute distress. Appearance: Normal appearance. She is ill-appearing (mild). HENT: Head: Normocephalic and atraumatic. Right Ear: Tympanic membrane normal. Left Ear: Tympanic membrane normal. Nose: Congestion and rhinorrhea present. Right Turbinates: Swollen. Left Turbinates: Swollen. Mouth/Throat: Mouth: Mucous membranes are moist. Pharynx: Oropharynx is clear. No oropharyngeal exudate or posterior oropharyngeal erythema. Eyes: Conjunctiva/sclera: Conjunctivae normal. Cardiovascular: Rate and Rhythm: Normal rate and regular rhythm. Pulses: Normal pulses. Heart sounds: Normal heart sounds. Pulmonary: Effort: Pulmonary effort is normal. Breath sounds: Normal breath sounds. Comments: Speaking full sentences without difficulty Lymphadenopathy: Cervical: No cervical adenopathy. Skin: General: Skin is warm and dry. Neurological: Mental Status: She is alert and oriented to person, place, and time. Psychiatric: Mood and Affect: Mood normal. Behavior: Behavior normal. An electronic signature was used to authenticate this note. PAUL Beltre CNP 07/07/2023 1:21 PM documented in this encounter [facility] 07-07-2023 Instructions PAUL Beltre CNP - 07/07/2023 1:00 PM EST Images from the original note were not included. Patient Education Sinusitis Discharge Instructions, Adult About this topic Your sinuses are hollow areas in the bones of your face. They have a thin lining that normally makes a small amount of mucus. When you have sinusitis, the lining gets swollen and makes extra mucus. You may have sinusitis with or after a cold. Most of the time sinusitis will get better in 1 to 2 weeks. Sinusitis is most often caused by a virus, so antibiotics won t help. But some people do need antibiotics. If the doctor ordered antibiotics for you, be sure to follow the instructions. It is important to take all of your antibiotics even if you start to feel better. What care is needed at home? Ask your doctor what you need to do when you go home. Make sure you ask questions if you do not understand what you need to do. Try to thin the mucus. Drink lots of liquids to stay hydrated. Use a cool mist humidifier to avoid dry air. Use saline nose drops or a saline nose rinse to relieve stuffiness. Wash your hands often. This will help keep others healthy. Do not smoke or be in smoke-filled places. Avoid things that may cause breathing problems like fumes, pollution, dust, and other common allergens and irritants. You may want to take medicine like ibuprofen, naproxen, or acetaminophen to help with pain. What follow-up care is needed? Your doctor may ask you to make visits to the office to check on your progress. Be sure to keep your visits. Your doctor will tell you if other tests are needed. Your doctor may send you for allergy tests or to an allergy expert. What lifestyle changes are needed? Avoid drinks that contain caffeine or alcohol. Try to stop smoking. Avoid being around others who smoke. Smoke can damage the small hairs inside your sinuses. What drugs may be needed? The doctor may order drugs to: Help with pain and swelling Fight an infection Control coughing Dry up the sinuses Help a runny or stuffy nose Will physical activity be limited? You do not have to limit your activity. You may want to rest more if you have a fever or headache. What problems could happen? Infections that happen again and again Asthma attack Coughing Loss of voice What can be done to prevent this health problem? Keep your nose as moist as possible. Use saline sprays, washes, and a humidifier often. Avoid being around cigarette and cigar smoke or strong odors from chemicals. Avoid long periods of swimming in pools treated with chlorine. This can bother the lining of the nose and sinuses. Avoid water diving. This forces water into the sinuses from the nasal passages. Manage your allergies with your doctor's help. Use an air conditioner if allergies are a problem. Before air travel, use a drug to dry up mucus. As the plane takes off or lands, the pressure can cause sinus pain. When do I need to call the doctor? You have a stiff neck, especially if you also have fever, chills, vomiting, or severe headache You have trouble thinking clearly. You have trouble seeing or have double vision. You have swelling or redness or pain around one or both eyes. You have a fever of 102 F (38.9 C) or higher, or have shaking chills or sweats. You have an upset stomach and throwing up. You have more pain in your face and head. You are not getting better within 1 to 2 weeks. Teach Back: Helping You Understand The Teach Back Method helps you understand the information we are giving you. After you talk with the staff, tell them in your own words what you learned. This helps to make sure the staff has covered each thing clearly. It also helps to explain things that may have been confusing. Before going home, make sure you can do these: I can tell you about my condition. I can tell you what may help ease my breathing. I can tell you what I will do if I have a fever, chills, or trouble breathing. Where can I learn more? [employer] https://familydoctor.org/condition/sinu sitis/ Centers for Disease Control and Prevention https://www.cdc.gov/antibiotic-use/comm unity/for-hcp/outpatient-hcp/adult-red tment-rec.html Last Reviewed Date 2020-10-24 Consumer Information Use and Disclaimer This generalized information is a limited summary of diagnosis, treatment, and/or medication information. It is not meant to be comprehensive and should be used as a tool to help the user understand and/or assess potential diagnostic and treatment options. It does NOT include all information about conditions, treatments, medications, side effects, or risks that may apply to a specific patient. It is not intended to be medical advice or a substitute for the medical advice, diagnosis, or treatment of a health care provider based on the health care provider's examination and assessment of a patient s specific and unique circumstances. Patients must speak with a health care provider for complete information about their health, medical questions, and treatment options, including any risks or benefits regarding use of medications. This information does not endorse any treatments or medications as safe, effective, or approved for treating a specific patient. [employer] and its affiliates disclaim any warranty or liability relating to this information or the use thereof. The use of this information is governed by the Terms of Use, available at https://www.[employer].com/en/know/c oiqbplu-zvlhsqrkogvph-hijor Copyright Copyright 2021 [employer] and its affiliates and/or licensors. All rights reserved. Patient Education Sinusitis Discharge Instructions, Adult About this topic Your sinuses are hollow areas in the bones of your face. They have a thin lining that normally makes a small amount of mucus. When you have sinusitis, the lining gets swollen and makes extra mucus. You may have sinusitis with or after a cold. Most of the time sinusitis will get better in 1 to 2 weeks. Sinusitis is most often caused by a virus, so antibiotics won t help. But some people do need antibiotics. If the doctor ordered antibiotics for you, be sure to follow the instructions. It is important to take all of your antibiotics even if you start to feel better. What care is needed at home? Ask your doctor what you need to do when you go home. Make sure you ask questions if you do not understand what you need to do. Try to thin the mucus. Drink lots of liquids to stay hydrated. Use a cool mist humidifier to avoid dry air. Use saline nose drops or a saline nose rinse to relieve stuffiness. Wash your hands often. This will help keep others healthy. Do not smoke or be in smoke-filled places. Avoid things that may cause breathing problems like fumes, pollution, dust, and other common allergens and irritants. You may want to take medicine like ibuprofen, naproxen, or acetaminophen to help with pain. What follow-up care is needed? Your doctor may ask you to make visits to the office to check on your progress. Be sure to keep your visits. Your doctor will tell you if other tests are needed. Your doctor may send you for allergy tests or to an allergy expert. What lifestyle changes are needed? Avoid drinks that contain caffeine or alcohol. Try to stop smoking. Avoid being around others who smoke. Smoke can damage the small hairs inside your sinuses. What drugs may be needed? The doctor may order drugs to: Help with pain and swelling Fight an infection Control coughing Dry up the sinuses Help a runny or stuffy nose Will physical activity be limited? You do not have to limit your activity. You may want to rest more if you have a fever or headache. What problems could happen? Infections that happen again and again Asthma attack Coughing Loss of voice What can be done to prevent this health problem? Keep your nose as moist as possible. Use saline sprays, washes, and a humidifier often. Avoid being around cigarette and cigar smoke or strong odors from chemicals. Avoid long periods of swimming in pools treated with chlorine. This can bother the lining of the nose and sinuses. Avoid water diving. This forces water into the sinuses from the nasal passages. Manage your allergies with your doctor's help. Use an air conditioner if allergies are a problem. Before air travel, use a drug to dry up mucus. As the plane takes off or lands, the pressure can cause sinus pain. When do I need to call the doctor? You have a stiff neck, especially if you also have fever, chills, vomiting, or severe headache You have trouble thinking clearly. You have trouble seeing or have double vision. You have swelling or redness or pain around one or both eyes. You have a fever of 102 F (38.9 C) or higher, or have shaking chills or sweats. You have an upset stomach and throwing up. You have more pain in your face and head. You are not getting better within 1 to 2 weeks. Teach Back: Helping You Understand The Teach Back Method helps you understand the information we are giving you. After you talk with the staff, tell them in your own words what you learned. This helps to make sure the staff has covered each thing clearly. It also helps to explain things that may have been confusing. Before going home, make sure you can do these: I can tell you about my condition. I can tell you what may help ease my breathing. I can tell you what I will do if I have a fever, chills, or trouble breathing. Where can I learn more? [employer] https://familydoctor.org/condition/sinu sitis/ Centers for Disease Control and Prevention https://www.cdc.gov/antibiotic-use/comm unity/for-hcp/outpatient-hcp/adult-red tment-rec.html Last Reviewed Date 2020-10-24 Consumer Information Use and Disclaimer This generalized information is a limited summary of diagnosis, treatment, and/or medication information. It is not meant to be comprehensive and should be used as a tool to help the user understand and/or assess potential diagnostic and treatment options. It does NOT include all information about conditions, treatments, medications, side effects, or risks that may apply to a specific patient. It is not intended to be medical advice or a substitute for the medical advice, diagnosis, or treatment of a health care provider based on the health care provider's examination and assessment of a patient s specific and unique circumstances. Patients must speak with a health care provider for complete information about their health, medical questions, and treatment options, including any risks or benefits regarding use of medications. This information does not endorse any treatments or medications as safe, effective, or approved for treating a specific patient. [employer] and its affiliates disclaim any warranty or liability relating to this information or the use thereof. The use of this information is governed by the Terms of Use, available at https://www.[employer].com/en/know/c spbwabw-hmjzxwcusrywp-usgzh Copyright Copyright 2021 [employer]. and its affiliates and/or licensors. All rights reserved. documented in this encounter [facility] 07-07-2023 Telephone encounter Note S: Patient spoke with [facility] nurse regarding cough B: Onset of symptoms/concern 1-2 weeks A: Patient complaining of severe cough with intermittent vomiting, sore throat, moderate left earache, nasal discharge, chest congestion chest pain only with cough. Denies difficulty breathing, fever, wheezing. No COVID test. R: OV scheduled for today with Gareth Gaona. Patient understands care advice. No further needs at this time. Patient instructed to call back with new or worsening symptoms. Reason for Disposition SEVERE coughing spells (e.g., whooping sound after coughing, vomiting after coughing) Protocols used: [id number] [facility] 07-07-2023 Miscellaneous Notes S: Patient spoke with [facility] nurse regarding cough B: Onset of symptoms/concern 1-2 weeks A: Patient complaining of severe cough with intermittent vomiting, sore throat, moderate left earache, nasal discharge, chest congestion chest pain only with cough. Denies difficulty breathing, fever, wheezing. No COVID test. R: OV scheduled for today with Gareth Gaona. Patient understands care advice. No further needs at this time. Patient instructed to call back with new or worsening symptoms. Reason for Disposition SEVERE coughing spells (e.g., whooping sound after coughing, vomiting after coughing) Protocols used: [id number] documented in this encounter [facility] 06-24-2023 Telephone encounter Note Re-faxed office notes and US report. [facility] 06-24-2023 Miscellaneous Notes Re-faxed office notes and US report. I faxed the office notes over to them! We denied your doctor s request for a Pelvis CT (Computed Tomography - pictures of inside your body between your hips). It must be medically needed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 section and content) DATE CREATED AUTHOR 10/17/2019 [facility] DATE CREATED AUTHOR AUTHOR'S ORGANIZ ATION 12/31/[address] [facility] [employer] DATE CREATED AUTHOR AUTHOR'S ORGANIZ ATION 06/04/[address] [facility] [employer] DATE CREATED AUTHOR AUTHOR'S ORGANIZ ATION 10/14/2023 [facility] Scheduled Active and Recently Administ ered Medications (unrecognized section and content) Medication Order 12/22/2020 12/23/2020 12/24/2020 acetaminophen (TYLENOL) tablet 1,000 mg (COMPLETED) 1,000 mg, Oral, ONCE, On 12/24/20 at 0445, For 1 dose, Maximum dose of acetaminophen is 4000 mg from all sources in 24 hours. 0446 (Given - Provid er: Jhon Hi RN) Scheduled Medication Order 04/02/2021 04/03/2021 04/04/2021 0.9 % sodium chloride bolus (COMPLETED) 1,000 mL (12.7 mL/kg), IntraVENous, at 1,000 mL/hr, Administer over 1 Hours, ONCE, On [place] 04/04/21 at 1232, For 1 dose 1250 (New Bag - Prov ider: Pacheco Hernandez RN)1345 (Stopped - Provider: Pacheco Hernandez RN) albuterol sulfate HFA 108 (90 Base) MCG/ACT inhaler 6 puff (COMPLETED) 6 puff, Inhalation, ONCE, On [place] 04/04/21 at 1232, For 1 dose 1305 (Given - Provid er: Pacheco Hernandez RN) dexamethasone (PF) (DECADRON) injection 10 mg (COMPLETED) 10 mg, IntraVENous, ONCE, On [place] 04/04/21 at 1232, For 1 dose 1300 (Given - Provid er: Pacheco Hernandez RN) ketorolac (TORADOL) injection 30 mg (COMPLETED) 30 mg, IntraVENous, ONCE, On [place] 21 at 1232, For 1 dose, Do not administer for more than 5 days. 1253 (Given - Provid er: Pacheco Hernandez RN) Scheduled Medication Order 05/31/2021 06/01/2021 06/02/2021 cephALEXin (KEFLEX) capsule 500 mg (COMPLETED) 500 mg, Oral, ONCE, On 06/02/21 at 1401, For 1 dose 1455 (Given - Provid er: Koko Guerra RN) lidocaine-EPINEPHrine 1 %-1:[id number] injection 20 mL (COMPLETED) 20 mL, IntraDERmal, ONCE, On 06/02/21 at 1306, For 1 dose 1311 (Given by Other - Provider: Jailyn Webster RN - Comment: Given by Dr. Trotter to right axillary.) Scheduled Medication Order 08/02/2023 08/03/2023 08/04/2023 sodium chloride 0.9% (NS) flush 10 mL 10 mL, IntraVENous, Every 12 hours scheduled (2 times per day), First dose on Thu08/04/23 at 0945, Preprocedure 0945 (Canceled Entry - Provider: Automatic Discharge Provider - Comment: Automatically canceled at discontinue of medication order) PRN Medication Order 08/02/2023 08/03/2023 08/04/2023 sodium chloride 0.9 % infusion 5-250 mL/hr, IntraVENous, PRN, if patient receiving piggyback infusions and maintenance fluids are not ordered OR KVO fluids to protect IV site / prevent frequent line interruptions/ long duration, Starting on Thu08/04/23 at 0937, Preprocedure, For piggyback infusion, administer at same rate as piggyback for a total of 25 mL. Enter 25 mL into dose field and piggyback rate into rate field of order. If piggyback is infusing at a rate less than 100 mL/hr, enter 25 mL into dose field and 100 mL/hr into rate field of order. For KVO fluids, enter rate of 20 mL/hr or less into rate field of order. 1005 (New Bag - Prov ider: Sandoval Bell CRNA)1017 (Stopped - Provider: Sandoval Bell CRNA) sodium chloride 0.9% (NS) flush 10 mL 10 mL, IntraVENous, PRN, line care, Starting on Thu08/04/23 at 0937, Preprocedure, After every IV line use Ordered Prescriptions (unrec ognized section and content) Prescription Sig Dispensed Refills Start Date End Da te benzonatate (TESSALON) 200 MG capsule Take 1 capsule by mouth 3 times daily as needed for Cough 21 capsule 0 04/04/2021 04/11/2021 Prescription Sig Dispensed Refills Start Date End Da te cephALEXin (KEFLEX) 500 MG capsule Take 1 capsule by mouth 4 times daily for 7 days 28 capsule 0 06/02/2021 06/09/2021 Care Teams (unrecognized sec tion and content) [employer] Machinist Relationship Specialty Start Date End Date Jerry Chirinos MD [address] [place] [address] PCP - General Family Medicine 01/02/21 [employer] Machinist Relationship Specialty Start Date End Date Jerry Chirinos MD [address] [place] [address] PCP - General Family Medicine 01/02/21 [employer] Machinist Relationship Specialty Start Date End Date Jerry Chirinos MD [address] [place] [address] PCP - General 01/02/21 [employer] Machinist Relationship Specialty Start Date End Date Efraín Pulido APRN - CNP [address] [place] [address] PCP - General Nurse Practitioner Family 04/13/23 [employer] Machinist Relationship Specialty Start Date End Date Efraín Pulido APRN - CNP [address] [place] [address] PCP - General Nurse Practitioner Family 04/13/23 [employer] Machinist Relationship Specialty Start Date End Date Efraín Pulido APRN - CNP [address] [place] [address] PCP - General Nurse Practitioner Family 04/13/23 [employer] Machinist Relationship Specialty Start Date End Date Jerry [facility]irinos MD [address] [facility] [address] PCP - General Family Medicine 04/20/23 [employer] Machinist Relationship Specialty Start Date End Date Jerry Chirinos MD [address] [facility] [address] PCP - General Family Medicine 04/20/23 [employer] Machinist Relationship Specialty Start Date End Date Ashok Efraín Gregoyr, ENGINE TESTER - STUCCO APPLICATOR [address] [place] [address] PCP - General Nurse Practitioner [facility] 04/13/2304/19/23 [employer] Machinist Relationship Specialty Start Date End [place] [address] PCP - General Family Medicine 04/20/23 [employer] Machinist Relationship Specialty Start Date End Date Jerry [facility]inos [facility] [address] PCP - General Family Medicine 04/20/23 [employer] System Machinist Relationship Specialty Start Date End Date Jerry Ch[facility]inos MD [facility] [address] PCP - General Family Medicine 04/20/23 [employer] System Machinist Relationship Specialty Start Date End Date Jerry Ch[facility]inos MD [facility] [address] PCP - General Family Medicine 04/20/23 [employer] Machinist Relationship Specialty Start Date End Date [facility]inos [facility] [place] [address] PCP - General Family Medicine 04/20/23 [employer] Machinist Relationship Specialty Start Date End Date Jerry Chirinos MD [address] [facility] [place] [address] PCP - General Family Medicine 04/20/23 [employer] Machinist Relationship Specialty Start Date End Date Efraín Pulido, ENGINE TESTER - STUCCO APPLICATOR [address] [place] [address] PCP - General Nurse Practitioner [facility] 07/08/23 [employer] Machinist Relationship Specialty Start Date End Date Efraín Pulido ENGINE TESTER - STUCCO APPLICATOR [address] [place] [address] PCP - General Nurse Practitioner [facility] 07/08/23 [employer] System Machinist Relationship Specialty Start Date End Date Efraín Pulido ENGINE TESTER - STUCCO APPLICATOR [address] [place] [address] PCP - General Nurse Practitioner [facility] 07/08/23 [employer] System Machinist Relationship Specialty Start Date End Date Efraín Pulido ENGINE TESTER - STUCCO APPLICATOR [address] [place] [address] PCP - General Nurse Practitioner [facility] 07/08/23 FOR RECORDS PERTAINING TO PATIENTS WHO ARE OR HAVE BEEN ENROLLED IN A CHEMICAL DEPENDENCY/SUBSTANCEABUSE PROGRAM, SOME INFORMATION MAY BE OMITTED. This clinical summary was aggregated from multiple sources. Caution should be exercised in using it in the provision of clinical care. This summary normalizes information from multiple sources, and as a consequence, information in this document may materially change the coding, format and clinical context of patient data. In addition, data may be omitted in some cases. CLINICAL DECISIONS SHOULD BE BASED ON THE PRIMARY CLINICAL RECORDS. [facility]. provides no warranty or guarantee of the accuracy or completeness of information in this document.
--- NOTE | 2024-03-06 23:07 | EX.ED.UPPERE ---
HPI History of Present Illness Chief Complaint: Upper Extremity Injury Narrative Narrative: 53-year-old female who denies significant past medical history presents with pain of her left thumb that she has had for 2 to 3 weeks. She thinks she may have injured it when she was sleeping when she put pressure on her left thumb. She states that over the past few weeks it has been dislocating and relocating at the IP joint. She can feel bone rubbing against each other. She has pain whenever he goes back into place and she has been able to maneuver it without difficulty until this evening when she is unable to put it back in place. She feels that she is unable to move the tip of her left thumb. She is right-hand dominant. She also states that she hears a muffle cracking noise in her left ear and wants that evaluated as well. PFSH PFSH Allergy/AdvReac Type Severity Reaction Status Date / Time Penicillins AdvReac Abd Verified 03/06/24 19:42 cramps/diarrhea Social History Smoking Status: Unknown if ever smoked ROS ROS ED ROS Narrative Focused review of system positive for left thumb pain at IP joint, and deformity with inability to flex and extend at the IP joint. Additionally, she complains of left ear pain with muffled sounds and cracking noises at times, no fevers or chills, no exacerbating or alleviating factors. EXAM Physical Exam Narrative Exam Narrative: Afebrile. Vital signs noted. Nontoxic-appearing. Regular rate and rhythm. Lungs clear to auscultation bilaterally. Abdomen soft nontender with normal active bowel sounds. Inspection of the left thumb reveals mild tenderness at the IP joint but no erythema. Good capillary refill. She is able to flex and extend at the MCP joint. She does have difficulty with flexion extension at the left thumb. Inspection of the left TM reveals a serous otitis media but no erythema, no mastoid tenderness or erythema. Const Vital Signs: 03/06/24 19:42 Temperature 97.9 F Temperature Source Temporal Pulse Rate 89 Respiratory Rate 18 Blood Pressure 184/75 H Blood Pressure Mean 111 Pulse Ox 98 Oxygen Delivery Method Room Air MDM MDM MDM Narrative Medical decision making narrative: Differential diagnosis for her left ear pain is serous otitis media versus acute otitis media, infectious. I have low suspicion for mastoiditis based on her history and physical. She could also have a cerumen impaction. On visual inspection, she has more of a serous otitis media. She was referred to otolaryngology and told to take [id number] decongestants as needed. I do not feel that antibiotics are indicated. She could also try nasal steroids. RN ordered x-rays of the left thumb per protocol, and I individually interpreted them. I see no evidence of fracture and the left thumb tuft appears to be articulating with the metacarpal. I reviewed the radiology report which confirms my independent interpretation. The patient does feel that her left thumb fingertip is out of place and she is having difficulty bending it. I offered to try a reduction, but she declined. What may be happening is that she has unable to put it back in place because the volar plate is stuck in the joint. I will refer her to Dr. Buddy Abernathy with hand surgery/plastic surgery. She was placed in a thumb spica splint and she states she will take [id number] medications. I stressed the importance of follow-up regarding her possibly dislocated thumb. Return instructions to the emergency department were reviewed. Disposition is discharged home in stable condition. History & Record Review Discussion w/independent historian: Patient Radiography Diagnostic Testing: Clinical Impression(s) from Imaging Studies Hand X-Ray 03/06/24 19:45 IMPRESSION: No acute findings in the left hand. Electronically Signed: Koko Snyder MD at 20:12 EDT Reading Location ID and State: [facility]– [place] / [place] , Service support , Discharge Plan Triage Chief Complaint: Upper Extremity Injury Other Complaint: Ear Problem ED Provider: Drew Andrade Dx/Rx/DC Orders Clinical Impression: Dislocation of left thumb, Acute serous otitis media, left ear, Left thumb sprain Instructions: Common Middle Ear Problems, ED Earache Without Infection (Adult), ED Finger Dislocation, ED Finger Sprain Primary Care Provider: Care Physician,No Primary Referrals: Arthur Duenas MD [Med Staff - Active Staff] - As soon as possible Buddy Abernathy MD [Med Staff - Active Staff] - 3-5 Days Care Physician,No Primary [Primary Care Provider] - Activity Restrictions/Additional Instructions: Wear the thumb spica splint. Follow-up with plastic surgery/hand as soon as possible. Print Language: Belgian Disposition Disposition: Home, Self Care
[2024-03-06 23:12] VITALS: BP 176/98; PULSE 76; RESP 16; TEMP 36.8; O2SAT 96
== END 2024-03-06 23:25 | disposition home or self-care (01) ==
PROVIDERS: Emergency Provider Emergency Medicine; Referring Provider Emergency Medicine; Visit Provider Emergency Medicine
DX: S63.105A Unspecified dislocation of left thumb, initial encounter (principal); S63.602A Unspecified sprain of left thumb, initial encounter; H65.02 Acute serous otitis media, left ear; X58.XXXA Exposure to other specified factors, initial encounter; Y93.84 Activity, sleeping
CPT/HCPCS: 73130; 99284